=== PATIENT | male | born 1960 | race African-American/Black ===

== ENCOUNTER 2020-03-03 08:55 | Day surgery (SDC) | payer OTHER ==
[2020-02-27 13:23] LABS: Absolute Lymphocytes (CBC) 1.1 K/uL (0.7-4.9); Basophils % 1.3 % (0-1.3); Hematocrit 44.8 % (39.6-49.0); Lymphocytes % 26.5 % (15.3-44.8); MPV 9.1 fL (7.6-11.3); RBC Red Blood Cell Count 4.67 M/uL (4.33-5.43)
[2020-02-27 13:24] LABS: Urine Appearance CLEAR; Urine Bilirubin NEGATIVE (NEG); Urine Blood NEGATIVE (NEG); Urine Color YELLOW; Urine Glucose NEGATIVE (NEG); Urine Protein NEGATIVE (NEG); Urine Specific Gravity <=1.005 (1.005-1.030); Urine pH 6.5 (5.0-7.0)
[2020-02-27 13:35] LABS: Protime INR 1.09
[2020-02-27 13:50] LABS: ALT/SGPT 59 U/L (12-78); AST/SGOT 73 U/L (15-37); Albumin 3.9 g/dL (3.4-5.0); Alkaline Phosphatase 189 U/L (45-117); BUN Blood Urea Nitrogen 8 mg/dL (7-18); Bicarbonate 32 mmol/L (21-32); Bilirubin Total 1.3 mg/dL (0.2-1.0); Glucose Level 101 mg/dL (74-106); Potassium 4.8 mmol/L (3.5-5.1); Sodium Level 136 mmol/L (136-145)
[2020-02-27 13:51] LABS: Urine Microscopic Reflex NO UMIC
[2020-02-27 20:02] LABS: Blood Morphology Comment NOT SEEN (NOT SEEN); Platelet Estimate ADEQ; Urine White Blood Cell Casts OK
[2020-03-03] MEDS ORDERED: LIDOCAINE 1% MPF 30 ML VIAL ONE (09:13)
[2020-03-03] MEDS ORDERED: propofoL 200 MG/20 ML VIAL IV ONE (09:29)
[2020-03-03] MEDS ORDERED: FENTANYL CITR 100 MCG/2 ML ONE (09:29)
[2020-03-03] MEDS ORDERED: MIDAZOLAM HCL 2 MG/2 ML INJ ONE (09:29)
[2020-03-03] MEDS ORDERED: LIDOCAINE 2% MPF 5 ML VIAL ONE (09:29)
[2020-03-03] MEDS ORDERED: Ringers Lactate 1,000 ML IV ONE ×2 (09:45→11:56)
[2020-03-03] MEDS ORDERED: CEFAZOLIN/SWI 1gm 1 GM/10 ML SYR ONE (09:45)
[2020-03-03] MEDS ORDERED: GLYCOPYRROLATE 0.2 MG/ML SYR ONE (11:20)
[2020-03-03] MEDS ORDERED: ONDANSETRON 4 MG/2 ML VIAL ONE (11:43)
[2020-03-03] MEDS ORDERED: KETOROLAC 30 MG/ML INJ ONE (11:43)
[2020-03-03] MEDS ORDERED: dexAMETHasone 10 MG/ML VIAL ONE (11:43)
[2020-03-03] MEDS ORDERED: BUPIVACAINE 0.25% PF 10 ML VIAL ONE (11:45)
[2020-03-03 12:15] VITALS: O2SAT 100
--- OUTSIDE RECORDS SUMMARY | 2020-03-03 12:21 | XMS REPORT ---
:1960 Author Organization eClinical[employer] Care Team Providers Name Role Phone Deana Gracia Provider Role Unavailable Allergies No Known Allergies Problems No Known Problems Medications No Known Medications Results No Known Results Summary Purpose eClinicalWorks Submission
--- OUTSIDE RECORDS SUMMARY | 2020-03-03 12:21 | XMS REPORT | Continuity of Care Document ---
:1960 Author Organization [facility] t Address [address] [place] [id number] Care Team Providers Name Role Phone Valentín HERNANDEZ Attending Clinician Radiology Attending Clinician Unavailable Problems This patient has no known problems. Allergies, Adverse Reactions, Alerts This patient has no known allergies or adverse reactions. Medications Ordered Filled Start Stop Current Ordering Indication Dosage Frequency Signature Comments Components Source Medication Medication Date Date Medication? Clinician (SIG) Name Name Clopidogrel Clopidogrel Yes Sharath [address] [facility] Bisulfate Bisulfate [employer] [facility] Losartan Losartan Yes Sharath [address] [facility] Potassium Potassium [employer] [facility] Furosemide Furosemide Yes Sharath [address] [facility] Levofloxaci Levofloxaci Yes Sharath [address] [facility] n n Valentín [facility] HydrALAZINE HydrALAZINE Yes Sharath [address] [facility] HCl HCl Valentín with food [facility] Allopurinol Allopurinol Yes Sharath [address] [facility] Procedures This patient has no known procedures. Encounters Start End Encounter Admission Attending Care Care Encounter Source Date/Time Date/Time Type Type Clinicians Facility Department ID 2020-02-27 2020-02-27 Outpatient Justin Lou [id number] [facility] 13:34:00 13:34:00 t Specialty/U [facility] 2020-01-23 2020-01-23 Outpatient Justin Lou [id number] [facility] 14:47:00 14:47:00 t Specialty/U [facility] - [facility] ent Clinics 2020-01-09 2020-01-09 [place] [id number] [facility] 08:03:00 08:03:00 t Specialty/U [facility] - [facility] l Clinic Out[facility] ent Clinics 2019-11-26 2019-11-26 [place] [id number] [facility] 10:15:00 10:15:00 t Specialty/U [facility] - [facility] l Clinic Outpat[facility] ent Clinics 2019-11-11 2019-11-11 [place] [id number] [facility] 15:19:00 15:19:00 t Specialty/U [facility] - [facility] 2019-11-11 2019-11-11 Office LINSEY Laura [id number] 10:25:43 12:28:10 Visit Sharath AMBULATOR [id number] Y [id number] 2019-11-05 2019-11-05 Outpatient [place] [id number] [facility] 10:27:00 10:27:00 t Specialty/U [facility] - [facility] l Clinic Outpati ent Clinics 2019-10-25 2019-10-25 Outpatient Justin [place] [id number] [facility] 11:08:00 11:08:00 t Specialty/U [facility] - [facility] l Clinic Outpat[facility] ent Clinics 2019-10-22 2019-10-22 Outpatient [place] [id number] [facility] 15:00:00 15:00:00 t Specialty/U [facility] - [facility] l Clinic Outpat[facility] ent Clinics 2019-10-17 2019-10-17 Outpatient [place] [id number] [facility] 13:16:00 13:16:00 t Specialty/U Shelia kes - Specialty [facility]rology [facility] l Clinic Outpati ent Clinics 2019-10-11 2019-10-11 [facility]UST [id number] 08:00:00 23:59:00 Encounter Naveen [id number] [place]era [id number] [place] [id number] 2019-09-26 2019-09-26 [place] [id number] [facility] 14:15:00 14:15:00 t Specialty/U Shelia travis - Specialty rology [facility] /[facility]rology Clinic [facility] Results This patient has no known results.
[2020-03-03] MEDS: HYDRALAZINE HCL 20 MG/ML VIAL ONE ×2 (13:08→13:36)
[2020-03-03] MEDS ORDERED: CODEINE 30MG/APAP 300MG TAB ONE (13:54)
[2020-03-03 14:37] VITALS: BP 169/72; TEMP 97.2
--- NOTE | 2020-04-13 07:01 | OP ---
Date of Procedure: 03/03/2020 Surgeon: AYAH SANTIZO [employer]: Deana Gracia, Nurse Practitioner. Preoperative Diagnosis: Left hydrocele. Postoperative Diagnosis: Resolving left inflammatory hydrocele. Procedure Performed: Left scrotal exploration with left hydrocelectomy. Anesthesia: General. Procedure In Detail: With the patient in the supine position on the operating table, after the [employer] induction of anesthesia, the groins and genitalia were shaved, prepped, and draped in usual s terile fashion. A left transverse mid scrotal incision was made with a 15 scalpel blade and carried down through the dartos. There was a small to moderate size fluid collection anteriorly above the an terior to the testis. There was significant scarring and fibrosis in this area suggesting that the p atient had a partially resolved postinflammatory hydrocele with the residual tunica vaginalis collect ion. The hydrocele site was opened and it was imbricated to obliterate the potential space, after dr ainage of the fluid. A Lord type procedure was performed to obliterate the remaining hydrocele sac. After this, the wound was closed in layers using 3-0 and 4-0 chromic suture for the more superficial layers of the tissues above the tunic followed by absorbable sutures for the dartos on the skin. St erile dressings were applied and the patient was awakened and transferred by stretcher to the recover y room in satisfactory condition. There were no complications. Blood loss was less than 10 cc. There was no specimen. Counts were correct. He seth erated the procedure well. LISA/DARRIAN Voice ID: [id number] Report ID: [id number]
== END 2020-03-03 14:15 | disposition home or self-care (01) ==
LOC: OR 08:55
PROVIDERS: ATTEND Internal Medicine Hematology & Oncology
PROC: 0VB70ZZ Excision of Left Tunica Vaginalis, Open Approach (ICD-10-PCS; principal; 2020-03-03 08:30)
DX: N43.3 Hydrocele, unspecified (principal); N50.89 Other specified disorders of the male genital organs; I10 Essential (primary) hypertension; M10.9 Gout, unspecified; Z11.59 Encounter for screening for other viral diseases; Z79.02 Long term (current) use of antithrombotics/antiplatelets; Z79.899 Other long term (current) drug therapy; Z80.42 Family history of malignant neoplasm of prostate
CPT/HCPCS: 55040; 93005; 85025; 36415; 85610; 85730; 81003; 80053; J0360; J2704; J2250; J3010; J1100; J0690; J7120 ×2; J2405

== ENCOUNTER 2025-06-12 17:45 | Emergency (ER) | payer OTHER ==
--- OUTSIDE RECORDS SUMMARY | 2025-06-12 17:58 | XMS REPORT | Continuity of Care Document ---
Author Name Unknown Address [address] [facility] [place] [address] [facility] [place] Address [address] [facility] [place] [address] Care Team Providers Care Padded Box Sewer Name Role Phone Latasha Collins Primary Care Physician [phone] Vadim Trevizo Attending Clinician Unavailable ROSA ISELA ORTIZ Attending Clinician Unavailable KEY MONTANEZ Attending Clinician Unavailab PHIL Malave B Attending Clinician Unavaila ble [id number] Attending Clinician Unavailable MD GERALD Attending Clinician Unavailab RODRICK Haq Attending Clinician Unav ailable [id number] Attending Clinician Unavailable [id number] Attending Clinician Unavailable KE COLE Attending Clinician Unavailable Douglas HERNANDEZ, Ke Attending Clinician [phone] Risa Woodward DO Attending Clinician [phone] Gerson HERNANDEZ, Garland Hanna Attending Clinician [phone] Thanh HERNANDEZ, Guerita Theodore Attending Clinician + Baljeet Kenyon MD Attending Clinici an BALJEET KENYON Attending Clinician Unavailable Nesha HERNANDEZ, Afaq Attending Clinician Doctor Unassigned, [place] Attending Clinician U navailable RADIOLOGY Attending Clinician Unavailable Radiology Attending Clinician Unavailable Garland Nieto MD Admitting Clinician GARLAND NIETO Admitting Clinician UnavailKYLE Brown Admitting Clinician UnavailMARGARITA Portillo Admitting Clinician Unavailable Payers Payer Name Policy Type Policy Number Effective Date Expirati on Date Source GOLD 4 ADVANCED 9 [id number] 2024 00:00:00 [facility] HAYLIE-SEMATTHEW SILVER-C COPAY FOCUS 9 [id number] 2024 00:00:00 [facility] EPO [id number] 2023 00:00:00 TML RP CLAIMS [id number] 2012 00:00:00 Problems Condition Name Condition Details Condition Category Status Onset Date Resolution Date Last Treatment Date Treating Clinician Comments Source Macrocytic anemia Macrocytic anemia Disease Active 11-28 00:00: 00 Haylie Seybold - Externa l Alcohol use disorder Alcohol use disorder Disease Active 11-28 00:00: 00 Hayile Seybold - Externa l Well adult exam Well adult exam Disease Active 10-28 00:00: 00 Haylie Seybold - Externa l Toenail fungus Toenail fungus Disease Active 10-28 00:00: 00 Haylie Seybold - Externa l Claudicati on Claudicati on Disease Active 10-07 00:00: 00 Haylie Seybold - Externa l Type 2 diabetes mellitus without complicati on, without long-term current use of insulin (multi HCC) Type 2 diabetes mellitus without complicati on, without long-term current use of insulin (multi HCC) Disease Active 09-30 00:00: 00 Haylie Seybold - Externa l Type 2 diabetes mellitus without complicati on, without long-term current use of insulin (multi HCC) Type 2 diabetes mellitus without complicati on, without long-term current use of insulin (multi HCC) Disease Active 09-30 00:00: 00 Haylie Seybold - Externa l HFrEF (heart failure with reduced ejection fraction) (multi HCC) HFrEF (heart failure with reduced ejection fraction) (multi HCC) Disease Active 09-30 00:00: 00 Haylie Setravisold - Externa l Discolorat ion of skin of multiple sites of lower extremity Discolorat ion of skin of multiple sites of lower extremity Disease Active 09-30 00:00: 00 Haylie Seybold - Externa l HFrEF (heart failure with reduced ejection fraction) (multi HCC) HFrEF (heart failure with reduced ejection fraction) (multi HCC) Disease Active 2023-09 00:00: 00 Haylie Setravisold - Externa l Leg swelling Leg swelling Disease Active 01-12 00:00: 00 [facility] Acute on chronic congestive heart failure, unspecifie d heart failure type Acute on chronic congestive heart failure, unspecifie d heart failure type Disease Active 01-12 00:00: 00 [facility] Left heart failure Left heart failure Disease Active 2022-09 00:00: 00 [facility] Essential hypertensi on Essential hypertensi on Disease Active 2022-09 00:00: 00 [facility] Prediabete s Prediabete s Disease Active 2022-09 00:00: 00 [facility] Range of motion deficit Range of motion deficit Disease Active 12-25 00:00: 00 [facility] Scarring Scarring Disease Active 12-25 00:00: 00 [facility] CAD (coronary artery disease) CAD (coronary artery disease) Disease Active Haylie Seybold - Externa l Gout Gout Disease Active Haylie Seybold - Externa l History of percutaneo us coronary interventi on History of percutaneo us coronary interventi on Disease Active Haylie Seybold - Externa l HTN (hypertens ion) HTN (hypertens ion) Disease Active Haylie Seybold - Externa l 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 Erectile disorder Problem Active [facility] Allergies, Adverse Reactions, Alerts Allergy Name Allergy Type Status Severity Reaction(s) Onset Date Inactive Date Treating Clinician Comments Source Codeine Propensi ty to adverse reaction s Active 11-20 00:00: 00 Haylie allison doxycycl ine Propensi ty to adverse reaction to drug Active 11-20 00:00: 00 Chris Harris NO KNOWN ALLERGIE S Drug Class Active [facility] Social History Social Habit Start Date Stop Date Quantity Comments Source History of tobacco use Cigarette Smoker Haylie winchester - External Sexual orientation K raman Nabor - External Alcoholic beverage intake 2024-11-28 00:00:00 2024-11-28 00:00:00 Current drinker of alcohol (finding) Haylie Tomlin - External History of Social function 2024-11-28 00:00:00 2024-11-28 00:00:00 Haylie Tomlin - External Tobacco use and exposure 2024-07-22 00:00:00 2024-07-22 00:00:00 Smokeless tobacco non-user Haylie Tomlin - External Sex 2024-03-17 09:39:21 2024-03-17 09:39:21 Male (finding) Haylie Tomlin - External Sex assigned at 1960 00:00:00 1960 00:00:00 Haylie Goldman Smoking Status Start Date Stop Date Source Tobacco smoking consumption unknown [facility] Smokes tobacco daily 2024-07-22 00:00:00 Haylie Tomlin - External Medications Ordered Medication Name Filled Medication Name Start Date Stop Date Current Medication? Ordering Clinician Indication Dosage Frequency Signature (SIG) Comments Components Source Clopidogrel Bisulfate (PLAVIX) 75 MG oral Tablet 11-28 11:02: 26 Yes 75mg QD Take 1 tablet (75 mg total) by mouth daily. Haylie allison Spironolact one 50 MG oral Tablet 11-28 11:02: 26 Yes 50mg QD Take 1 tablet (50 mg total) by mouth daily. Haylie allison busPIRone HCl 10 MG oral Tablet 11-28 11:02: 26 Yes 10mg Q.5D Take 1 tablet (10 mg total) by mouth 2 times daily. Haylie allison Empaglifloz in 10 MG oral Tablet 11-28 00:00: 00 Yes [id number] 10mg QD Take 1 tablet (10 mg total) by mouth daily. Haylie allison Potassium Chloride 20 MEQ oral Pack 10-28 09:08: 43 10-28 00:00 :00 No 20meq Q.5D Take 20 mEq by mouth 2 times daily. Haylie allison Clopidogrel Bisulfate (PLAVIX) 75 MG oral Tablet 10-28 08:49: 48 Yes 75mg QD Take 1 tablet (75 mg total) by mouth daily. Haylie allison Spironolact one 50 MG oral Tablet 10-28 08:49: 48 Yes 50mg QD Take 1 tablet (50 mg total) by mouth daily. Haylie allison busPIRone HCl 10 MG oral Tablet 10-28 08:49: 48 Yes 10mg Q.5D Take 1 tablet (10 mg total) by mouth 2 times daily. Haylie allison Carvedilol 3.125 MG oral Tablet 10-28 00:00: 00 Yes [id number] 3.125mg Take 1 tablet (3.125 mg total) by mouth in the morning and 1 tablet (3.125 mg total) in the evening. Take with meals. Haylie allison Nicotine 14 MG/24HR transdermal PATCH 24 HR 10-28 00:00: 00 Yes [id number] 1{patch } Place 1 patch onto the skin every 24 hours. Haylie allison Furosemide 80 MG oral Tablet 10-28 00:00: 00 Yes [id number] 40mg Q.5D Take 0.5 tablets (40 mg total) by mouth 2 times daily. Haylie allison sildenafil 100 mg tablet 2023-09 00:00: 00 Yes 1mg Chirsclara Harris levofloxaci n 500 mg tablet 2023-09 00:00: 00 Yes 1mg Chrisclara Harris cephalexin 500 mg tablet 2023-09- 00:00: 00 Yes 1mg Chris F Steven Potassium Chloride 20 MEQ oral Pack 2023-09 14:45: 27 Yes 20meq Q.5D Take 20 mEq by mouth 2 times daily. Haylie allison busPIRone HCl 10 MG oral Tablet 2023-09 14:45: 27 Yes 10mg Q.5D Take 1 tablet (10 mg total) by mouth 2 times daily. Haylie allison Clopidogrel Bisulfate (PLAVIX) 75 MG oral Tablet 2023-09 14:40: 09 Yes 75mg QD Take 1 tablet (75 mg total) by mouth daily. Haylie allison Spironolact one 50 MG oral Tablet 2023-09 14:40: 09 Yes 50mg QD Take 1 tablet (50 mg total) by mouth daily. Haylie allison Carvedilol 3.125 MG oral Tablet 2023-09 00:00: 00 10-28 00:00 :00 No 3.125mg Take 1 tablet (3.125 mg total) by mouth in the morning and 1 tablet (3.125 mg total) in the evening. Take with meals. Haylie allison Gabapentin 100 MG oral Capsule 2023-09 00:00: 00 Yes Haylie allison losartan 50 mg tablet 2023-09 00:00: 00 Yes 1mg Chris Harris furosemide 40 mg tablet 2023-09 00:00: 00 Yes 1mg Chris Harris Bruno Low Dose Aspirin 81 mg tablet,dawna yed release 2023-09 00:00: 00 Yes 1mg Chris Harrsi clopidogrel 75 mg tablet 2023-09 00:00: 00 Yes 1mg Chris Harris allopurinol 300 mg tablet 2023-09 00:00: 00 Yes 1mg Chris Harris hydralazine 50 mg tablet 2023-09 00:00: 00 Yes 1mg Chris Harris spironolact one 50 mg tablet 2023-09 00:00: 00 Yes 1mg Chris Harris Bystolic 10 mg tablet 2023-09 00:00: 00 Yes 1mg Chris Harris buspirone 10 mg tablet 2023-09 00:00: 00 Yes 1mg Chris Harris Klor-Con M20 mEq tablet,exte nded release 2023-09 00:00: 00 Yes 1mEq Chris Harris Nebivolol HCl (Bystolic) 10 MG oral Tablet 2023-09 00:00: 00 10-28 00:00 :00 No 10mg QD Take 1 tablet (10 mg total) by mouth daily. Haylie allison sildenafil 100 mg tablet 2023-09 00:00: 00 Yes 1mg Chris Harris gabapentin 100 mg capsule 2023-09 00:00: 00 Yes 12mg Chris Harris clopidogrel 75 mg tablet 2023-09 00:00: 00 Yes 1mg Chris Harris spironolact one 50 mg tablet 2023-09 00:00: 00 Yes 1mg Chris Harris Allopurinol 300 MG oral Tablet 05-24 00:00: 00 Yes 300mg QD Take 1 tablet (300 mg total) by mouth daily. Haylie allison Losartan Potassium (COZAAR) 50 MG oral Tablet 05-24 00:00: 00 Yes 50mg QD Take 1 tablet (50 mg total) by mouth daily. Haylie allison losartan 50 mg tablet 04-10 00:00: 00 Yes 1mg Chris Harris furosemide 40 mg tablet 04-10 00:00: 00 Yes 1mg Chris Harris Bruno Low Dose Aspirin 81 mg tablet,dawna yed release 04-10 00:00: 00 Yes 1mg Chris Harris clopidogrel 75 mg tablet 04-10 00:00: 00 Yes 1mg Chris Harris allopurinol 300 mg tablet 04-10 00:00: 00 Yes 1mg Chris Harris hydralazine 50 mg tablet 04-10 00:00: 00 Yes 1mg Chris Harris spironolact one 50 mg tablet 04-10 00:00: 00 Yes 1mg Chris Harris Bystolic 10 mg tablet 04-10 00:00: 00 Yes 1mg Chris Harris buspirone 10 mg tablet 04-10 00:00: 00 Yes 1mg Chris Harris Klor-Con M20 mEq tablet,exte nded release 04-10 00:00: 00 Yes 1mEq Chris Harris gabapentin 100 mg capsule 04-10 00:00: 00 Yes 12mg Chris Harris sacubitriL- valsartan 24-26 mg tablet 03-01 11:41: 30 03-01 00:00 :00 No 1{tbl} Take 1 tablet by mouth in the morning and 1 tablet in the evening. [facility] hydrALAZINE HCl 25 MG oral Tablet 03-01 00:00: 00 Yes 50mg [id number] 3D Take 2 tablets (50 mg total) by mouth every 8 hours. Haylie allison furosemide 80 mg tablet 03-01 00:00: 00 Yes [id number] 80mg Take 1 tablet by mouth every morning and evening. [facility] spironolact one 50 mg tablet 03-01 00:00: 00 03-02 04:59 :00 No [id number] 50mg Take 1 tablet by mouth in the morning. [facility] Furosemide 80 MG oral Tablet 03-01 00:00: 00 10-28 00:00 :00 No 40mg Q.5D Take 0.5 tablets (40 mg total) by mouth 2 times daily. Haylie allison Atorvastati n Calcium 40 MG oral Tablet 03-01 00:00: 00 09-30 00:00 :00 No 40mg Take 1 tablet (40 mg total) by mouth at bedtime. Haylie allison hydrALAZINE 25 mg tablet 03-01 00:00: 00 08-29 05:59 :00 No [id number] 25mg Take 1 tablet by mouth every 8 (eight) hours for 180 days. [facility] lisinopriL 20 mg tablet 03-01 00:00: 00 03-01 00:00 :00 No [id number] 20mg Take 1 tablet by mouth in the morning. [facility] isosorbide dinitrate 20 mg tablet 03-01 00:00: 00 03-01 00:00 :00 No [id number] 20mg Take 1 tablet by mouth in the morning and 1 tablet at noon and 1 tablet in the evening. [facility] allopurinol 300 mg tablet 02-18 00:00: 00 Yes 1mg Chris Harris losartan 50 mg tablet 02-18 00:00: 00 Yes 1mg Chris Harris Klor-Con M20 mEq tablet,exte nded release 02-18 00:00: 00 Yes 1mEq Chris Harris gabapentin 100 mg capsule 02-18 00:00: 00 Yes 12mg Chris Harris Aspirin 81 MG oral Chewable Tablet 01-19 00:00: 00 Yes 81mg QD Take 1 tablet (81 mg total) by mouth daily. Haylie allison clopidogreL 75 mg tablet 01-19 00:00: 00 Yes [id number] 75mg Take 1 tablet by mouth in the morning. [facility] sacubitriL- valsartan 24-26 mg tablet 01-18 18:11: 57 Yes 1{tbl} Take 1 tablet by mouth in the morning and 1 tablet in the evening. [facility] clopidogreL (PLAVIX) 75 mg tablet 75 mg 01-18 14:00: 00 01-19 01:11 :57 No [id number] 75mg 75 mg, Oral, DAILY, First dose on Mon01/19/24 at 0900, Until Discontinu ed, Routine [facility] magnesium oxide (MAG-OX 400) tablet 400 mg 01-18 13:00: 00 01-18 14:17 :00 No 400mg 400 mg, Oral, ONCE, 1 dose, On Mon01/19/24 at 0800, Routine [facility] ramelteon (ROZEREM) tablet 8 mg 01-18 04:45: 00 01-19 01:11 :57 No 8mg 8 mg, Oral, QHS, First dose on Mon01/18/24 at 2345, Until Discontinu ed, Routine [facility] HYDROcodone -acetaminop hen (NORCO 5) 5-325 mg tablet 1 tablet 01-18 04:36: 28 01-19 01:11 :57 No 1{tbl} 1 tablet, Oral, Q6HPRN, Starting on Mon01/18/24 at 2336, Until Mon01/19/24 at 2010, Routine, Pain (scale 7-10), Pain (scale 4-6) [facility] clopidogreL (PLAVIX) 300 mg tablet 300 mg 01-18 01:00: 00 01-18 01:59 :00 No 300mg 300 mg, Oral, ONCE, 1 dose, On Mon01/18/24 at 1999, Routine [facility] furosemide 80 mg tablet 01-18 00:00: 00 03-01 00:00 :00 No [id number] 80mg Take 1 tablet by mouth every morning and evening. [facility] hydrALAZINE 25 mg tablet 01-18 00:00: 00 03-01 00:00 :00 No [id number] 25mg Take 1 tablet by mouth every 8 (eight) hours. 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 01-17 22:01: 29 01-17 22:28 :01 No ONCE INTRA PROCEDURE, Starting on Ruby 01/18/24 at 1701, Until Ruby 01/18/24 at 1728, [facility]hen[facility] (BENADRYL) injection 01-17 20:55: 29 01-17 22:28 :01 No ONCE INTRA PROCEDURE, Starting on Ruby 01/18/24 at 1555, Until Ruby 01/18/24 at 1728, Routine, [facility] ticagrelor (BRILINTA) tablet 180 mg 01-17 20:45: 00 01-17 19:50 :00 No [id number] 180mg 180 mg, Oral, ONCE, 1 dose, On Ruby 01/18/24 at 1545, Routine [facility] aminophylli ne 250 mg in NaCl 0.9% (NS) 100 mL piggyback 01-17 20:35: 03 01-17 22:28 :01 No ONCE INTRA PROCEDURE, Starting on Ruby 01/18/24 at 1535, Until Ruby 01/18/24 at 1728, CV Intraproce dure [facility] nitroglycer in (TRIDIL) 2 mg in 10 mL D5W for Cardiac Cath 01-17 20:33: 13 01-17 22:28 :01 No ONCE INTRA PROCEDURE, Starting on Ruby 01/18/24 at 1533, Until Ruby 01/18/24 at 1728, Routine, CV Intraproce dure [facility] heparin 1,000 unit/mL injection 01-17 20:33: 13 01-17 22:28 :01 No ONCE INTRA PROCEDURE, Starting on Ruby 01/18/24 at 1533, Until Ruby 01/18/24 at 1728, Routine, CV Intraproce dure [facility] lidocaine 1% (PF) (XYLOCAINE) injection 01-17 20:31: 26 01-17 22:28 :01 No ONCE INTRA PROCEDURE, Starting on Mon01/18/24 at 1531, Until Mon01/18/24 at 1728, Routine, CV Intraproce dure [facility] FENTanyl PF (SUBLIMAZE (PF)) injection 01-17 20:18: 30 01-17 22:28 :01 No ONCE INTRA PROCEDURE, Starting on Mon01/18/24 at 1518, Until Mon01/18/24 at 1728, Routine, CV Intraproce dure [facility] midazolam (VERSED) injection 01-17 20:18: 00 01-17 22:28 :01 No ONCE INTRA PROCEDURE, Starting on Mon01/18/24 at 1518, Until Mon01/18/24 at 1728, Routine, CV Intraproce dure [facility] tc 99m-pyropho sphate injection 25 millicurie 01-17 15:30: 00 01-17 14:00 :00 No [id number] 25mCi 25 millicurie , Intravenou s, ONCE, 1 dose, On Mon01/18/24 at 1030, Routine [facility] furosemide (LASIX) tablet 80 mg 01-17 11:00: 00 01-19 01:11 :57 No 80mg 80 mg, Oral, BID AT 0600 - 1800, First dose on Mon01/18/24 at 0600, Until Discontinu ed, Routine [facility] iopamidol (ISOVUE 370-500 mL) injection 01-16 18:50: 58 01-16 19:05 :33 No ONCE INTRA PROCEDURE, Starting on Mon01/17/24 at 1350, Until Mon01/17/24 at 1405, Routine, CV Intraproce dure [facility] nitroglycer in (TRIDIL) 2 mg in 10 mL D5W for Cardiac Cath 01-16 18:02: 19 01-16 19:05 :33 No ONCE INTRA PROCEDURE, Starting on Mon01/17/24 at 1302, Until Mon01/17/24 at 1405, Routine, CV Intraproce dure [facility] heparin 1,000 unit/mL injection 01-16 18:02: 10 01-16 19:05 :33 No ONCE INTRA PROCEDURE, Starting on Mon01/17/24 at 1302, Until Mon01/17/24 at 1405, Routine, CV Intraproce dure [facility] lidocaine 1% (XYLOCAINE) 10 mg/mL (1 %) injection 01-16 17:57: 39 01-16 19:05 :33 No ONCE INTRA PROCEDURE, Starting on Mon01/17/24 at 1257, Until Mon01/17/24 at 1405, Routine, CV Intraproce dure [facility] FENTanyl PF (SUBLIMAZE (PF)) injection 01-16 17:55: 08 01-16 19:05 :33 No ONCE INTRA PROCEDURE, Starting on Mon01/17/24 at 1255, Until Mon01/17/24 at 1405, Routine, CV Intraproce dure [facility] midazolam (VERSED) injection 01-16 17:54: 59 01-16 19:05 :33 No ONCE INTRA PROCEDURE, Starting on Mon01/17/24 at 1254, Until Mon01/17/24 at 1405, Routine, CV Intraproce dure [facility] magnesium sulfate in water 2 gram/50 mL (4 %) infusion 2 g 01-16 12:30: 00 01-16 14:58 :00 No 2g 2 g, IV Piggyback, Administer over 60 Minutes, ONCE, 1 dose, On Mon01/17/24 at 0730, Routine [facility] furosemide (LASIX) injection 80 mg 01-16 01:00: 00 01-17 01:52 :14 No 80mg 80 mg, IV Push, Q12H, First dose (after last modificati on) on Mon01/16/24 at 2000, Until Discontinu ed, [facility] hydrALAZINE (APRESOLINE ) tablet 25 mg 01-15 19:00: 00 01-19 01:11 :57 No 25mg 25 mg, Oral, Q8H, First dose (after last modificati on) on Mon01/16/24 at 1400, Until Discontinu ed, Routine [facility] sennosides- docusate sodium (SENOKOT-S) 8.6-50 mg per tablet 1 tablet 01-15 00:30: 00 01-19 01:11 :57 No 1{tbl} 1 tablet, Oral, DAILY, First dose on Mon01/15/24 at 1930, Until Discontinu ed, Routine [facility] carvediloL (COREG) tablet 6.25 mg 01-14 22:00: 00 01-19 01:11 :57 No 6.25mg 6.25 mg, Oral, BID MEALS, First dose (after last modificati on) on Mon01/15/24 at 1700, Until Discontinu ed, Routine [facility] allopurinoL (ZYLOPRIM) tablet 300 mg 01-14 16:15: 00 01-19 01:11 :57 No 300mg 300 mg, Oral, DAILY, First dose on Mon01/15/24 at 1115, Until Discontinu ed, Routine [facility] spironolact one (ALDACTONE) tablet 25 mg 01-14 14:00: 00 01-17 14:54 :50 No 25mg 25 mg, Oral, DAILY, First dose on Mon01/15/24 at 0900, Until Discontinu ed, Routine [facility] carvediloL (COREG) tablet 3.125 mg 01-14 13:00: 00 01-14 15:13 :38 No 3.125mg 3.125 mg, Oral, BID MEALS, First dose on Mon01/15/24 at 0800, Until Discontinu ed, Routine [facility] magnesium sulfate in water 4 gram/50 mL (8 %) IV Piggyback 4 g 2024-0 5-13 12:45: 00 01-14 16:34 :00 No 4g 4 g, IV Piggyback, at 25 mL/hr Administer over 120 Minutes, ONCE, 1 dose, On Mon01/15/24 at 0745, Routine [facility] KCL (KLOR-CON M20) tablet 20 mEq 01-14 12:45: 00 01-14 13:57 :15 No 20meq 20 mEq, Oral, ONCE, 1 dose, On Mon01/15/24 at 0745, Routine [facility] melatonin (MELATIN) tablet 3 mg 01-14 03:30: 00 01-18 04:36 :52 No 3mg 3 mg, Oral, QHS, First dose on Mon01/14/24 at 2230, Until Discontinu ed, Routine [facility] aspirin chewable tablet 81 mg 01-13 14:00: 00 01-19 01:11 :57 No 81mg 81 mg, Oral, DAILY, First dose on Mon01/14/24 at 0900, Until Discontinu ed, Routine [facility] cetirizine (ALLERGY RELIEF (CETIRIZINE )) tablet 5 mg 01-13 14:00: 00 01-19 01:11 :57 No 5mg 5 mg, Oral, DAILY, First dose on Mon01/14/24 at 0900, Until Discontinu ed, Routine [facility] furosemide (LASIX) injection 40 mg 01-13 01:00: 00 01-15 16:25 :17 No 40mg 40 mg, IV Push, Q12H, First dose (after last reorder) on 01/13/24 at 2000, Until Discontinu ed, [facility] hydrALAZINE (APRESOLINE ) tablet 50 mg 01-13 01:00: 00 01-15 16:25 :17 No 50mg 50 mg, Oral, BID, First dose (after last reorder) on 01/13/24 at 2000, Until Discontinu ed, Routine [facility] magnesium sulfate in water 4 gram/50 mL (8 %) IV Piggyback 4 g 01-12 18:15: 00 01-12 19:42 :00 No 4g 4 g, IV Piggyback, at 25 mL/hr Administer over 120 Minutes, ONCE, 1 dose, On 01/13/24 at 1315, Routine [facility] enoxaparin (LOVENOX) injection 40 mg 01-12 16:45: 00 01-19 01:11 :57 No 40mg 40 mg, Subcutaneo us, Q24H, First dose on 01/13/24 at 1145, Until Discontinu ed, Routine [facility] benzonatate (TESSALON PERLES) capsule 100 mg 01-12 15:31: 58 01-19 01:11 :57 No 100mg 100 mg, Oral, Q8HPRN, Starting on 01/13/24 at 1031, Until Mon01/19/24 at 2010, Routine, Cough [facility] benzocaine- menthoL (CEPACOL SORE THROAT (TIMOTHY-MEN)) lozenge 1 Lozenge 01-12 15:31: 43 01-19 01:11 :57 No 1{lozen ge} 1 Lozenge, Oral, Q4HPRN, Starting on 01/13/24 at 1031, Until Mon01/19/24 at 2010, Routine, Sore throat [facility] carvediloL (COREG) tablet 25 mg 01-12 14:45: 00 01-12 18:55 :02 No 25mg 25 mg, Oral, BID MEALS, First dose (after last modificati on) on 01/13/24 at 0945, Until Discontinu ed, Routine [facility] hydrALAZINE (APRESOLINE ) tablet 10 mg 01-12 14:21: 27 01-19 01:11 :57 No 10mg 10 mg, Oral, Q6HPRN, Starting on 01/13/24 at 0921, Until Mon01/19/24 at 2010, Routine, SBP >180 [facility] hydralAZINE (APRESOLINE ) injection 10 mg 01-12 11:30: 00 01-12 11:56 :00 No 10mg 10 mg, Slow IV Push, ONCE, 1 dose, On 01/13/24 at 0630, [facility] aspirin chewable tablet 324 mg 01-12 10:30: 00 01-12 09:44 :00 No 324mg 324 mg, Oral, ONCE, 1 dose, On 01/13/24 at 0530, Routine [facility] furosemide (LASIX) injection 40 mg 01-12 09:15: 00 01-12 09:21 :00 No 40mg 40 mg, IV Push, ONCE, 1 dose, [facility]13[facility]24 [facility] 0415[facility] 11-20 00:00: 00 Yes 1mg Chris Harris furosemide 40 mg tablet 11-20 00:00: 00 Yes 1mg Chris Harris hydralazine 50 mg tablet 11-20 00:00: 00 Yes 1mg Chris Harris allopurinol 300 mg tablet 11-20 00:00: 00 Yes 1mg Chris Harris Bystolic 10 mg tablet 11-20 00:00: 00 Yes 1mg Chris Harris buspirone 10 mg tablet 11-20 00:00: 00 Yes 1mg Chris Harris gabapentin 300 mg capsule 11-20 00:00: 00 Yes 1mg Chris Harris ALLOPURINOL 300MG 11-14 00:00: 00 Yes Chris Harris SPIRONOLACT 50MG 11-14 00:00: 00 Yes Chris Harris CARVEDILOL 25MG 11-14 00:00: 00 Yes Chris Harris TAKE 1 TABLET BY MOUTH TWICE DAILY. 11-14 00:00: 00 01-14 00:00 :00 No 50 Chris Harris TAKE ONE TABLET BY MOUTH EVERY OTHER MORNING 11-14 00:00: 00 01-14 00:00 :00 No 40 Chris Harris TAKE 1 TABLET BY MOUTH DAILY 11-14 00:00: 00 01-14 00:00 :00 No 10 Chris Harris sacubitriL- valsartan 24-26 mg tablet 2022-09 13:49: 52 Yes 1{tbl} Take 1 tablet by mouth in the morning and 1 tablet in the evening. [facility] carvediloL 25 mg tablet 2022-09 00:00: 00 07-11 05:59 :00 No [id number] 25mg Take 1 tablet by mouth in the morning and 1 tablet in the evening. Take with meals. [facility] furosemide 40 mg tablet 2022-09 00:00: 00 01-18 00:00 :00 No [id number] 40mg Take 1 tablet by mouth in the morning. [facility] TAKE 1 TABLET BY MOUTH TWICE A DAY 2022-09 00:00: 00 Yes [id number] Chris Harris 1 TABLET PO TID 2022-09 00:00: 00 Yes 10 Chris Harris FUROSEMIDE 40MG 05-16 00:00: 00 Yes [id number] Chris Harris allopurinoL 300 mg tablet 05-16 00:00: 00 Yes daily. [facility] allopurinoL 300 mg tablet 05-16 00:00: 00 Yes daily. [facility] spironolact one 50 mg tablet 05-16 00:00: 00 03-01 00:00 :00 No daily. [facility] hydrALAZINE 50 mg tablet 05-16 00:00: 00 01-18 00:00 :00 No 2 (two) times daily. [facility] hydrALAZINE 50 mg tablet 05-16 00:00: 00 01-18 00:00 :00 No 2 (two) times daily. [facility] TAKE 1 TABLET DAILY. 05-16 00:00: 00 01-14 00:00 :00 No 10 Chris Harris FUROSEMIDE 40MG TAB 2-1 1-16 00:00: 00 Yes Chris Harris ALLOPURINOL 300MG 2-1 1-16 00:00: 00 Yes [id number] Chris Harris HYDRALAZINE 50MG 2-1 1-16 00:00: 00 Yes [id number] Chris Harris SPIRONOLACT 50MG 2021-1 1-16 00:00: 00 Yes [id number] Chris Harris Dose Unknown 2022-0 4-12 00:00: 00 No Dose Unknown 2022-0 4-12 00:00: 00 Yes Chris Harris Dose Unknown 2022-0 3-16 00:00: 00 No Dose Unknown 2022-0 3-16 00:00: 00 Yes Chris Harris atorvastati n 10 mg tablet 2-0 3-15 00:00: 00 No 1mg atorvastati n 10 mg tablet 2-0 3-15 00:00: 00 Yes 1mg Chris Harris Dose Unknown 2022-0 3-14 00:00: 00 No Dose Unknown 2022-0 3-14 00:00: 00 No Dose Unknown 2022-0 3-14 00:00: 00 No Dose Unknown 2022-0 3-14 00:00: 00 No Dose Unknown 2022-0 3-14 00:00: 00 No Dose Unknown 2022-0 3-14 00:00: 00 No Dose Unknown 2022-0 3-14 00:00: 00 Yes Chris Harris Dose Unknown 2022-0 3-14 00:00: 00 Yes Chris Harris Dose Unknown 2022-0 3-14 00:00: 00 Yes Chris Harris Dose Unknown 2022-0 3-14 00:00: 00 Yes Chris Harris Dose Unknown 2022-0 3-14 00:00: 00 Yes Chris Harris Dose Unknown 2022-0 3-14 00:00: 00 Yes Chris Harris Clopidogrel Bisulfate Clopidogrel Bisulfate Yes Kyle Basil 1 tablet [facility] Losartan Potassium Losartan Potassium Yes Kyle [place] 1 tablet [facility] Furosemide Furosemide Yes Kyle [place] 1 tablet [facility] Levofloxaci n Levofloxaci n Yes Kyle [place] 1 tablet [facility] HydrALAZINE HCl HydrALAZINE HCl Yes Kyle [place] 1 tablet with food [facility] Allopurinol Allopurinol Yes Kyle Gracia 1 tablet [facility] Losartan Potassium 100 MG Losartan Potassium 100 MG No 1{table t} QD Losartan Potassium 100 MG Levofloxaci n 500 MG Levofloxaci n 500 MG No 1{table t} QD Levofloxac in 500 MG Clopidogrel Bisulfate 75 MG Clopidogrel Bisulfate 75 MG No 1{table t} QD Clopidogre l Bisulfate 75 MG Furosemide 40 MG Furosemide 40 MG No 1{table t} QD Furosemide 40 MG Immunizations Ordered Immunization Name Filled Immunization Name Date Status Comments Source Tdap 2021-11-15 00:00:00 Completed SHINGRIX VACCINE 2021-11-15 00:00:00 Completed Tdap Tdap 2021-11-15 00:00:00 Completed Chris F Steven SHINGRIX VACCINE SHINGRIX VACCINE 2021-11-15 00:00:00 Completed Chris Santillan Steven Moderna COVID-19 Vaccine 2020-12-11 00:00:00 Completed Moderna COVID-19 Vaccine Moderna COVID-19 Vaccine 2020-12-11 00:00:00 Completed Chris Santillan Steven Moderna COVID-19 Vaccine 2020-11-09 00:00:00 Completed Moderna COVID-19 Vaccine Moderna COVID-19 Vaccine 2020-11-09 00:00:00 Completed Chris Harris Tdap- (Boostrix, Adacel) Unknown Completed Haylie Seybold - External Tdap- (Boostrix, Adacel) Unknown Completed Haylie Bookerybold - External AFLURIA TRIVALENT MDV Unknown Completed Haylie Bookerybold - External Shingles IM (Shingrix) Unknown Completed Haylie Seybold - External Tdap- (Boostrix, Adacel) Unknown Completed Haylie Seybold - External Tdap- (Boostrix, Adacel) Unknown Completed Haylie Seybold - External AFLURIA TRIVALENT MDV Unknown Completed Haylie Seybold - External Shingles IM (Shingrix) Unknown Completed Haylie Seybold - External Tdap- (Boostrix, Adacel) Unknown Completed Haylie Seybold - External Tdap- (Boostrix, Adacel) Unknown Completed Haylie Bookerybold - External Shingles IM (Shingrix) Unknown Completed Haylie Bookerybold - External Vital Signs Vital Name Observation Time Observation Value Comments S dia Systolic blood pressure 2024-11-28 15:56:00 132 mm[Hg] Haylie Bookerybo ld - External Diastolic blood pressure 2024-11-28 15:56:00 78 mm[Hg] Haylie Bookerybo ld - External Heart rate 2024-11-28 15:56:00 60 /min Kvngse y Seybold - External Body temperature 2024-11-28 15:56:00 36.61 Gill Haylie Seybold - External Respiratory rate 2024-11-28 15:56:00 20 /min Haylie Seybold - External Body height 2024-11-28 15:56:00 180.3 cm Zakia cabral Seybold - External Body weight 2024-11-28 15:56:00 90.776 kg Zakia ey Seybold - External BMI 2024-11-28 15:56:00 27.91 kg/m2 Zakia ey Seybold - External Oxygen saturation in Arterial blood by Pulse oximetry 2024-11-28 15:56:00 97 /min Haylie Bookerybo ld - External Systolic blood pressure 2024-10-28 15:30:00 152 mm[Hg] Haylie Seybo ld - External Diastolic blood pressure 2024-10-28 15:30:00 72 mm[Hg] Haylie Bookerybo ld - External Heart rate 2024-10-28 14:45:00 56 /min Kvngse y Seybold - External Body temperature 2024-10-28 14:45:00 35.89 Gill Haylie Seybold - External Respiratory rate 2024-10-28 14:45:00 15 /min Haylie Seybold - External Body height 2024-10-28 14:45:00 180.3 cm Zakia ey Seybold - External Body weight 2024-10-28 14:45:00 86.183 kg Zakia ey Seybold - External BMI 2024-10-28 14:45:00 26.50 kg/m2 Zakia ey Seybold - External Oxygen saturation in Arterial blood by Pulse oximetry 2024-10-28 14:45:00 95 /min Haylie Boykino ld - External Systolic blood pressure 2024-09-30 17:00:00 152 mm[Hg] Haylie Boykino ld - External Diastolic blood pressure 2024-09-30 17:00:00 84 mm[Hg] Haylie Bookerybo ld - External Heart rate 2024-09-30 16:51:00 52 /min Felice y Seybold - External Respiratory rate 2024-09-30 16:51:00 15 /min Haylie Seybold - External Body height 2024-09-30 16:51:00 180.3 cm Zakia ey Seybold - External Body weight 2024-09-30 16:51:00 83.008 kg Zakia ey Seybold - External BMI 2024-09-30 16:51:00 25.52 kg/m2 Zakia ey Seybold - External Oxygen saturation in Arterial blood by Pulse oximetry 2024-09-30 16:51:00 100 /min Haylie Boykino ld - External Systolic blood pressure 2024-03-01 16:19:00 157 mm[Hg] [facility] Diastolic blood pressure 2024-03-01 16:19:00 73 mm[Hg] [facility] Heart rate 2024-03-01 16:19:00 64 /min [facility] Body temperature 2024-03-01 16:18:00 37.11 Gill [facility] Respiratory rate 2024-03-01 16:18:00 18 /min [facility] Body height 2024-03-01 16:18:00 180.3 cm [facility] Body weight 2024-03-01 16:18:00 83.779 kg [facility] BMI 2024-03-01 16:18:00 25.76 kg/m2 [facility] Oxygen saturation in Arterial blood by Pulse oximetry 2024-03-01 16:18:00 95 /min [facility] Systolic blood pressure 2024-01-19 16:25:00 130 mm[Hg] [facility] Diastolic blood pressure 2024-01-19 16:25:00 67 mm[Hg] [facility] Heart rate 2024-01-19 16:25:00 66 /min [facility] Body temperature 2024-01-19 16:25:00 36 Gill [facility] Oxygen saturation in Arterial blood by Pulse oximetry 2024-01-19 16:25:00 95 /min [facility] Respiratory rate 2024-01-19 13:49:00 15 /min [facility] Body weight 2024-01-19 08:37:00 75.354 kg [facility] BMI 2024-01-19 08:37:00 22.85 kg/m2 [facility] Body height 2024-01-15 01:00:00 181.6 cm [facility] Systolic blood pressure 2024-01-18 21:57:08 143 mm[Hg] [facility] Diastolic blood pressure 2024-01-18 21:57:08 83 mm[Hg] [facility] Respiratory rate 2024-01-18 21:57:08 10 /min [facility] Oxygen saturation in Arterial blood by Pulse oximetry 2024-01-18 21:57:08 95 /min [facility] Heart rate 2024-01-18 12:29:00 62 /min [facility] Body temperature 2024-01-18 12:29:00 35.94 Gill [facility] Body weight 2024-01-18 08:35:00 78.971 kg [facility] BMI 2024-01-18 08:35:00 22.85 kg/m2 [facility] Body height 2024-01-15 01:00:00 181.6 cm [facility] Systolic blood pressure 2024-01-17 21:45:00 145 mm[Hg] [facility] Diastolic blood pressure 2024-01-17 21:45:00 67 mm[Hg] [facility] Heart rate 2024-01-17 21:45:00 64 /min [facility] Body temperature 2024-01-17 21:45:00 36.28 Gill [facility] Respiratory rate 2024-01-17 21:45:00 15 /min [facility] Oxygen saturation in Arterial blood by Pulse oximetry 2024-01-17 21:45:00 95 /min [facility] Body weight 2024-01-17 09:10:00 76.8 kg [facility] BMI 2024-01-17 09:10:00 23.95 kg/m2 [facility] Body height 2024-01-15 01:00:00 181.6 cm [facility] Systolic blood pressure 2023-07-11 19:58:00 179 mm[Hg] [facility] Diastolic blood pressure 2023-07-11 19:58:00 78 mm[Hg] [facility] Heart rate 2023-07-11 19:58:00 71 /min [facility] Respiratory rate 2023-07-11 19:49:00 18 /min [facility] Body height 2023-07-11 19:49:00 180.3 cm [facility] Body weight 2023-07-11 19:49:00 82.146 kg [facility] BMI 2023-07-11 19:49:00 25.26 kg/m2 [facility] Oxygen saturation in Arterial blood by Pulse oximetry 2023-07-11 19:49:00 95 /min [facility] height 2021-01-20 10:20:00 73 [in_i] Commo n [facility] weight 2021-01-20 10:20:00 177.5 [lb_av] Co mmon [facility] temperature 2021-01-20 10:20:00 98.5 [degF] Com mon [facility] bmi 2021-01-20 10:20:00 23.42 kg/m2 Comm on [facility] oximetry 2021-01-20 10:20:00 97 % Commo n [facility] blood pressure systolic 2021-01-20 10:20:00 207 mm[Hg] Common [facility] blood pressure diastolic 2021-01-20 10:20:00 97 mm[Hg] Common [facility] BP Systolic 2025-04-24 16:57:00 139 mm[Hg] Step hen F Steven BP Diastolic 2025-04-24 16:57:00 84 mm[Hg] Roel phen F Steven Weight Measured 2025-04-24 16:57:00 162.20 pounds Chris F Steven Height Measured 2025-04-24 16:57:00 69.00 inches Chris F Steven Body Temperature 2025-04-24 16:57:00 97.70 degrees Chris F Steven Heart Rate 2025-04-24 16:57:00 59.00 /min Bette en F Steven Respiratory Rate 2025-04-24 16:57:00 16.00 /min Chris F Steven BP Systolic 2024-07-26 16:24:00 138 mm[Hg] Step hen F Steven BP Diastolic 2024-07-26 16:24:00 88 mm[Hg] Roel phen F Steven Weight Measured 2024-07-26 16:24:00 181.00 pounds Chris F Steven Height Measured 2024-07-26 16:24:00 69.00 inches Chris F Steven Body Temperature 2024-07-26 16:24:00 98.10 degrees Chris F Steven Heart Rate 2024-07-26 16:24:00 69.00 /min Bette en F Steven Respiratory Rate 2024-07-26 16:24:00 18.00 /min Chris F Steven BP Systolic 2024-07-10 09:53:00 138 mm[Hg] Step hen F Steven BP Diastolic 2024-07-10 09:53:00 72 mm[Hg] Roel phen F Steven Weight Measured 2024-07-10 09:53:00 187.00 pounds Chris F Steven Height Measured 2024-07-10 09:53:00 69.00 inches Chrsi F Steven Body Temperature 2024-07-10 09:53:00 97.20 degrees Chris F Steven Heart Rate 2024-07-10 09:53:00 73.00 /min Bette en F Steven Respiratory Rate 2024-07-10 09:53:00 18.00 /min Chris F Steven BP Systolic 2024-06-05 09:43:00 Step hen F Steven BP Diastolic 2024-06-05 09:43:00 Roel phen F Steven Weight Measured 2024-06-05 09:43:00 Chris F Steven Height Measured 2024-06-05 09:43:00 Chris F Steven Body Temperature 2024-06-05 09:43:00 Chris F Steven Heart Rate 2024-06-05 09:43:00 Bette en F Steven Respiratory Rate 2024-06-05 09:43:00 Chris F Steven BP Systolic 2024-04-10 09:12:00 130 mm[Hg] Step hen F Steven BP Diastolic 2024-04-10 09:12:00 60 mm[Hg] Roel phen F Steven Weight Measured 2024-04-10 09:12:00 178.00 pounds Chris F Steven Height Measured 2024-04-10 09:12:00 69.00 inches Chris F Steven Body Temperature 2024-04-10 09:12:00 98.10 degrees Chris F Steven Heart Rate 2024-04-10 09:12:00 96.00 /min Bette en F Steven Respiratory Rate 2024-04-10 09:12:00 20.00 /min Chris F Steven BP Systolic 2024-02-19 14:09:00 142 mm[Hg] Step hen F Steven BP Diastolic 2024-02-19 14:09:00 70 mm[Hg] Roel phen F Steven Weight Measured 2024-02-19 14:09:00 174.00 pounds Chris F Steven Height Measured 2024-02-19 14:09:00 69.00 inches Chris F Steven Body Temperature 2024-02-19 14:09:00 98.10 degrees Chris F Steven Heart Rate 2024-02-19 14:09:00 76.00 /min Bette en F Steven Respiratory Rate 2024-02-19 14:09:00 18.00 /min Chris F Steven BP Systolic 2024-01-12 08:05:00 Step hen F Steven BP Diastolic 2024-01-12 08:05:00 Roel phen F Steven Weight Measured 2024-01-12 08:05:00 199.00 pounds Chris F Steven Height Measured 2024-01-12 08:05:00 69.00 inches Chris F Steven Body Temperature 2024-01-12 08:05:00 Chris F Steven Heart Rate 2024-01-12 08:05:00 Bette en F Steven Respiratory Rate 2024-01-12 08:05:00 Chris F Steven BP Systolic 2023-11-29 10:09:00 180 mm[Hg] Step hen F Steven BP Diastolic 2023-11-29 10:09:00 92 mm[Hg] Roel phen F Steven Weight Measured 2023-11-29 10:09:00 190.00 pounds Chris F Steven Height Measured 2023-11-29 10:09:00 70.00 inches Chris F Steven Body Temperature 2023-11-29 10:09:00 98.20 degrees Chris F Steven Heart Rate 2023-11-29 10:09:00 89.00 /min Bette en F Steven Respiratory Rate 2023-11-29 10:09:00 20.00 /min Chris F Steven BP Systolic 2023-11-21 08:57:00 190 mm[Hg] Step hen F Steven BP Diastolic 2023-11-21 08:57:00 94 mm[Hg] Roel phen F Steven Weight Measured 2023-11-21 08:57:00 190.00 pounds Chris F Steven Height Measured 2023-11-21 08:57:00 70.00 inches Chris F Steven Body Temperature 2023-11-21 08:57:00 98.10 degrees Chris F Steven Heart Rate 2023-11-21 08:57:00 68.00 /min Bette en F Steven Respiratory Rate 2023-11-21 08:57:00 20.00 /min Chris F Steven BP Systolic 2023-11-21 07:49:00 190 mm[Hg] Step hen F Steven BP Diastolic 2023-11-21 07:49:00 94 mm[Hg] Roel phen F Steven Weight Measured 2023-11-21 07:49:00 190.00 pounds Chris F Steven Height Measured 2023-11-21 07:49:00 70.00 inches Chris F Steven Body Temperature 2023-11-21 07:49:00 98.10 degrees Chris F Steven Heart Rate 2023-11-21 07:49:00 68.00 /min Bette en F Steven Respiratory Rate 2023-11-21 07:49:00 20.00 /min Chris F Steven BP Systolic 2023-07-03 19:46:00 Step hen F Steven BP Diastolic 2023-07-03 19:46:00 Roel phen F Steven Weight Measured 2023-07-03 19:46:00 Chris F Steven Height Measured 2023-07-03 19:46:00 Chris F Steven Body Temperature 2023-07-03 19:46:00 Chris F Steven Heart Rate 2023-07-03 19:46:00 Bette en F Steven Respiratory Rate 2023-07-03 19:46:00 Chris F Steven BP Systolic 2023-06-21 12:44:00 170 mm[Hg] Step hen F Steven BP Diastolic 2023-06-21 12:44:00 80 mm[Hg] Roel phen F Steven Weight Measured 2023-06-21 12:44:00 190.00 pounds Chris F Steven Height Measured 2023-06-21 12:44:00 70.00 inches Chris F Steven Body Temperature 2023-06-21 12:44:00 97.20 degrees Chris F Steven Heart Rate 2023-06-21 12:44:00 67.00 /min Bette en F Steven Respiratory Rate 2023-06-21 12:44:00 18.00 /min Chris F Steven BP Systolic 2023-06-21 11:31:00 170 mm[Hg] Step hen F Steven BP Diastolic 2023-06-21 11:31:00 80 mm[Hg] Role phen F Steven Weight Measured 2023-06-21 11:31:00 190.00 pounds Chris F Steven Height Measured 2023-06-21 11:31:00 70.00 inches Chris F Steven Body Temperature 2023-06-21 11:31:00 97.20 degrees Chris F Steven Heart Rate 2023-06-21 11:31:00 67.00 /min Bette en F Steven Respiratory Rate 2023-06-21 11:31:00 18.00 /min Chris F Steven BP Systolic 2023-05-02 14:58:00 182 mm[Hg] Step hen F Steven BP Diastolic 2023-05-02 14:58:00 96 mm[Hg] Roel phen F Steven Weight Measured 2023-05-02 14:58:00 181.40 pounds Chris F Steven Height Measured 2023-05-02 14:58:00 70.00 inches Chris F Steven Body Temperature 2023-05-02 14:58:00 97.90 degrees Chris F Steven Heart Rate 2023-05-02 14:58:00 60.00 /min Bette en F Steven Respiratory Rate 2023-05-02 14:58:00 18.00 /min Chris F Steven BP Systolic 2023-04-07 08:24:00 169 mm[Hg] Step hen F Steven BP Diastolic 2023-04-07 08:24:00 80 mm[Hg] Roel phen F Steven Weight Measured 2023-04-07 08:24:00 189.60 pounds Chris F Steven Height Measured 2023-04-07 08:24:00 70.00 inches Chris F Steven Body Temperature 2023-04-07 08:24:00 98.10 degrees Chris F Steven Heart Rate 2023-04-07 08:24:00 60.00 /min Bette en F Steven Respiratory Rate 2023-04-07 08:24:00 Chris F Steven BP Systolic 2022-07-20 08:18:00 156 mm[Hg] Step hen F Steven BP Diastolic 2022-07-20 08:18:00 76 mm[Hg] Roel phen F Steven Weight Measured 2022-07-20 08:18:00 191.20 pounds Chris F Steven Height Measured 2022-07-20 08:18:00 70.00 inches Chris F Steven Body Temperature 2022-07-20 08:18:00 98.10 degrees Chris F Steven Heart Rate 2022-07-20 08:18:00 59.00 /min Bette en F Steven Respiratory Rate 2022-07-20 08:18:00 17.00 /min Chris F Steven BP Systolic 2022-07-14 17:18:00 152 mm[Hg] BP Diastolic 2022-07-14 17:18:00 79 mm[Hg] Weight Measured 2022-07-14 17:18:00 193.40 pounds Height Measured 2022-07-14 17:18:00 70.00 inches Body Temperature 2022-07-14 17:18:00 97.40 degrees Heart Rate 2022-07-14 17:18:00 65.00 /min Respiratory Rate 2022-07-14 17:18:00 BP Systolic 2021-11-15 09:42:00 130 mm[Hg] BP Diastolic 2021-11-15 09:42:00 59 mm[Hg] Weight Measured 2021-11-15 09:42:00 184.00 pounds Height Measured 2021-11-15 09:42:00 70.00 inches Body Temperature 2021-11-15 09:42:00 98.50 degrees Heart Rate 2021-11-15 09:42:00 60.00 /min Respiratory Rate 2021-11-15 09:42:00 Procedures Procedure Date / Time Performed Performing Clinician Source MAGNESIUM 2024-01-19 09:44:00 Carmen [facility] BASIC METABOLIC PANEL (NA, K, CL, CO2, GLUCOSE, BUN, CREATININE, CA) 2024-01-19 09:44:00 Carmen [facility] CBC WITH DIFF 2024-01-19 09:44:00 Carmen [facility] MAGNESIUM 2024-01-19 09:44:00 Carmen [facility] BASIC METABOLIC PANEL (NA, K, CL, CO2, GLUCOSE, BUN, CREATININE, CA) 2024-01-19 09:44:00 Carmen [facility] CBC WITH DIFF 2024-01-19 09:44:00 Carmen [facility] ACTIVATED PARTIAL THRMPLAS NEETA 2024-01-19 02:01:[facility]A 2024-01-19 02:01:00 Franny Ballesteros [facility] POCT ACT LOW RANGE 2024-01-19 00:08:00 Baljeet Vega [facility] POCT ACT LOW RANGE 2024-01-19 00:08:00 Baljeet Vega [facility] POCT ACT LOW RANGE 2024-01-19 00:08:00 Baljeet Vega [facility] POCT ACT LOW RANGE 2024-01-18 22:57:00 Baljeet Vega [facility] POCT ACT LOW RANGE 2024-01-18 22:57:00 Baljeet Vega [facility] POCT ACT LOW RANGE 2024-01-18 22:57:00 Baljeet Vega [facility] CATH PROCEDURE LOG 2024-01-18 22:24:24 Motiwshruthi [facility] CATH PROCEDURE LOG 2024-01-18 22:24:24 Motiwshruthi, [facility] CATH PROCEDURE LOG 2024-01-18 22:24:24 Nesha, [facility] CARDIAC CATHETERIZATION 2024-01-18 22:05:00 Marla Bush ma [facility] NM CARDIAC INFARCTION SPECT 2024-01-18 15:27:00 Sally Morales [facility] MAGNESIUM 2024-01-18 11:12:00 Bill Guy [facility] BASIC METABOLIC PANEL (NA, K, CL, CO2, GLUCOSE, BUN, CREATININE, CA) 2024-01-18 11:12:00 Efraín Guy [facility] CBC WITH DIFF 2024-01-18 11:12:00 Bill Guy [facility] MAGNESIUM 2024-01-18 11:12:00 Bill Guy [facility] BASIC METABOLIC PANEL (NA, K, CL, CO2, GLUCOSE, BUN, CREATININE, CA) 2024-01-18 11:12:00 Efraín Guy [facility] CBC WITH DIFF 2024-01-18 11:12:00 Bill Guy [facility] MAGNESIUM 2024-01-18 11:12:00 Bill Guy [facility] BASIC METABOLIC PANEL (NA, K, CL, CO2, GLUCOSE, BUN, CREATININE, CA) 2024-01-18 11:12:00 Efraín Guy [facility] CBC WITH DIFF 2024-01-18 11:12:00 Bill Guy [facility] CATH PROCEDURE LOG 2024-01-17 19:06:34 Mik Bush [facility] CATH PROCEDURE LOG 2024-01-17 19:06:34 BushMarlajorge alberto Garnett [facility] CATH PROCEDURE LOG 2024-01-17 19:06:34 Mik Bush [facility] CARDIAC CATHETERIZATION 2024-01-17 18:46:00 Marla Bush ma [facility] CARDIAC CATHETERIZATION 2024-01-17 18:46:00 Marla Bush ma [facility] CARDIAC CATHETERIZATION 2024-01-17 18:46:00 Marla Bush ma [facility] MAGNESIUM 2024-01-17 09:19:00 Carmen [facility] BASIC METABOLIC PANEL (NA, K, CL, CO2, GLUCOSE, BUN, CREATININE, CA) 2024-01-17 09:19:00 Cramen [facility] CBC WITH DIFF 2024-01-17 09:19:00 Carmen [facility] MAGNESIUM 2024-01-17 09:19:00 Carmen [facility] BASIC METABOLIC PANEL (NA, K, CL, CO2, GLUCOSE, BUN, CREATININE, CA) 2024-01-17 09:19:00 Carmen [facility] CBC WITH DIFF 2024-01-17 09:19:00 Carmen [facility] MAGNESIUM 2024-01-17 09:19:00 [facility] (NA, K, CL, CO2, GLUCOSE, BUN, CREATININE, CA) 2024-01-17 09:19:00 Carmen [facility] CBC WITH DIFF 2024-01-17 09:19:00 Carmen [facility] MAGNESIUM 2024-01-16 08:54:00 Carmen [facility] BASIC METABOLIC PANEL (NA, K, CL, CO2, GLUCOSE, BUN, CREATININE, CA) 2024-01-16 08:54:00 Carmen [facility] CBC WITH DIFF 2024-01-16 08:54:00 Carmen [facility] MAGNESIUM 2024-01-16 08:54:00 Carmen [facility] BASIC METABOLIC PANEL (NA, K, CL, CO2, GLUCOSE, BUN, CREATININE, CA) 2024-01-16 08:54:00 Carmen [facility] CBC WITH DIFF 2024-01-16 08:54:00 Carmen [facility] MAGNESIUM 2024-01-16 08:54[facility] (NA, K, CL, CO2, GLUCOSE, BUN, CREATININE, CA) 2024-01-16 08:54:00 Carmen [facility] CBC WITH DIFF 2024-01-16 08:54:00 Carmen [facility] TRANSTHORACIC ECHO (TTE) COMPLETE 2024-01-15 20:40:00 Sunil [facility] TRANSTHORACIC ECHO (TTE) COMPLETE 2024-01-15 20:40:00 Sunil [facility] TRANSTHORACIC ECHO (TTE) COMPLETE 2024-01-15 20:40:00 [facility] MAGNESIUM 2024-01-15 09:41:00 [facility] BASIC METABOLIC PANEL (NA, K, CL, CO2, GLUCOSE, BUN, CREATININE, CA) 2024-01-15 09:41:00 [facility] WITH DIFF 2024-01-15 09:41:00 [facility] N-TERMINAL PRO-BNP 2024-01-15 09:41:00 Efraín Guy [facility] MAGNESIUM 2024-01-15 09:41:[address] [facility] BASIC METABOLIC PANEL (NA, K, CL, CO2, GLUCOSE, BUN, CREATININE, CA) 2024-01-15 09:41:00 Marcus [facility] CBC WITH DIFF 2024-01-15 09:41:00 [facility] N-TERMINAL PRO-BNP 2024-01-15 09:41:00 Efraín Guy [facility] MAGNESIUM 2024-01-15 09:41:[address] [facility] BASIC METABOLIC PANEL (NA, K, CL, CO2, GLUCOSE, BUN, CREATININE, CA) 2024-01-15 09:41:00 Marcus [facility] CBC WITH DIFF 2024-01-15 09:41:00 Marcus [facility] N-TERMINAL PRO-BNP 2024-01-15 09:41:00 Efraín Guy [facility] TROPONIN I 2024-01-14 13:39:00 William [facility] TROPONIN I 2024-01-14 13:39:00 William [facility] TROPONIN I 2024-01-14 13:39:00 William [facility] TROPONIN I 2024-01-14 10:44:00 William [facility] HEPATIC FUNCTION PANEL (83722) (ALB,T.PRO,BILI T,BU/BC,ALT,AST,ALK PHOS) 2024-01-14 10:44:00 Marcus [facility] BASIC METABOLIC PANEL (NA, K, CL, CO2, GLUCOSE, BUN, CREATININE, CA) 2024-01-14 10:44:00 [facility] CBC WITH DIFF 2024-01-14 10:44:00 [facility] PROTHROMBIN TIME / INR 2024-01-14 10:44:00 Karson Velazquez [facility] PHOSPHORUS 2024-01-14 10:44:00 [facility] MAGNESIUM 2024-01-14 10:44:00 [facility] TROPONIN I 2024-01-14 10:44:00 William, Brianna [facility] HEPATIC FUNCTION PANEL (16427) (ALB,T.PRO,BILI T,BU/BC,ALT,AST,ALK PHOS) 2024-01-14 10:44:00 Ifeoma Velazquez [facility] BASIC METABOLIC PANEL (NA, K, CL, CO2, GLUCOSE, BUN, CREATININE, CA) 2024-01-14 10:44:00 [facility] CBC WITH DIFF 2024-01-14 10:44:00 [facility] PROTHROMBIN TIME / INR 2024-01-14 10:44:00 Karson Velazquez [facility] PHOSPHORUS 2024-01-14 10:44:00 [facility] MAGNESIUM 2024-01-14 10:44:[facility] 2024-01-14 10:44:00 Brianna Thomas [facility] HEPATIC FUNCTION PANEL (36733) (ALB,T.PRO,BILI T,BU/BC,ALT,AST,ALK PHOS) 2024-01-14 10:44:00 Ifeoma Velazquez [facility] BASIC METABOLIC PANEL (NA, K, CL, CO2, GLUCOSE, BUN, CREATININE, CA) 2024-01-14 10:44:00 [facility] CBC WITH DIFF 2024-01-14 10:44:00 [facility] PROTHROMBIN TIME / INR 2024-01-14 10:44:00 Karson Velazquez [facility] PHOSPHORUS 2024-01-14 10:44:00 [facility] MAGNESIUM 2024-01-14 10:44:00 [facility] TROPONIN I 2024-01-14 01:40:00 Brianna Thomas [facility] TROPONIN I 2024-01-14 01:40:00 Brianna Thomas [facility] TROPONIN I 2024-01-14 01:40:00 Brianna Thomas [facility] TROPONIN I 2024-01-13 20:06:00 Brianna Thomas [facility] TROPONIN I 2024-01-13 20:06:00 Brianna Thomas [facility] TROPONIN I 2024-01-13 20:06:00 Brianna Thomas [facility] ABDOMEN LIMITED 2024-01-13 17:08:00 [facility] 2024-01-13 17:08:00 Salinas Barber [facility] ABDOMEN LIMITED 2024-01-13 17:08:00 Salinas Barber [facility] LACTIC ACID WHOLE BLOOD 2024-01-13 15:24:00 [facility] LACTIC ACID WHOLE BLOOD 2024-01-13 15:24:00 [facility] LACTIC ACID WHOLE BLOOD 2024-01-13 15:24:00 [facility] URINALYSIS 2024-01-13 15:01:00 [facility], URINE RANDOM 2024-01-13 15:01:00 Ranjit [facility] SODIUM, URINE RANDOM 2024-01-13 15:01:00 [facility] URINALYSIS 2024-01-13 15:01:00 [facility] CREATININE, URINE RANDOM 2024-01-13 15:01:00 Ranjit Barber [facility] SODIUM, URINE RANDOM 2024-01-13 15:01:00 [facility] URINALYSIS 2024-01-13 15:01:00 [facility] CREATININE, URINE RANDOM 2024-01-13 15:01:00 Ranjit Barber [facility] SODIUM, URINE RANDOM 2024-01-13 15:01:00 [facility] HB ECG ROUTINE & RHYTHM STRIP 2024-01-13 14:55:18 [facility] HB ECG ROUTINE & RHYTHM STRIP 2024-01-13 14:55:18 [facility] HB ECG ROUTINE & RHYTHM STRIP 2024-01-13 14:55:18 [facility] MAGNESIUM 2024-01-13 14:16:00 [facility] FERRITIN SERUM 2024-01-13 14:16:00 Sunil [facility] TROPONIN I 2024-01-13 14:16:00 [facility] HEPATIC FUNCTION PANEL (62793) (ALB,T.PRO,BILI T,BU/BC,ALT,AST,ALK PHOS) 2024-01-13 14:16:00 [facility] BASIC METABOLIC PANEL (NA, K, CL, CO2, GLUCOSE, BUN, CREATININE, CA) 2024-01-13 14:16:00 [facility] IRON PANEL 2024-01-13 14:16:00 [facility] PROTHROMBIN TIME / INR 2024-01-13 14:16:00 [facility] D-DIMER 2024-01-13 14:16:00 [facility] ACTIVATED PARTIAL THRMPLAS NEETA 2024-01-13 14:16:00 [facility] N-TERMINAL PRO-BNP 2024-01-13 14:16:00 [facility] MRSA / MSSA SCREEN BY PCR, LUIS 2024-01-13 14:16:00 [facility] MAGNESIUM 2024-01-13 14:16:00 [facility] FERRITIN SERUM 2024-01-13 14:16:00 Sunil [facility] TROPONIN I 2024-01-13 14:16:00 [facility] HEPATIC FUNCTION PANEL ([id number]) (ALB,T.PRO,BILI T,BU/BC,ALT,AST,ALK PHOS) 2024-01-13 14:16:00 [facility] BASIC METABOLIC PANEL (NA, K, CL, CO2, GLUCOSE, BUN, CREATININE, CA) 2024-01-13 14:16:00 [facility] IRON PANEL 2024-01-13 14:16:00 [facility] PROTHROMBIN TIME / INR 2024-01-13 14:16:00 [facility] D-DIMER 2024-01-13 14:16:00 [facility] ACTIVATED PARTIAL THRMPLAS NEETA 2024-01-13 14:16:00 [facility] N-TERMINAL PRO-BNP 2024-01-13 14:16:00 Salinas Barber [facility] MRSA / MSSA SCREEN BY PCR, NARDAMIAN 2024-01-13 14:16:00 [facility] MAGNESIUM 2024-01-13 14:16:00 [facility] FERRITIN SERUM 2024-01-13 14:16:00 Sunil [facility] TROPONIN I 2024-01-13 14:16:00 [facility] HEPATIC FUNCTION PANEL (41153) (ALB,T.PRO,BILI T,BU/BC,ALT,AST,ALK PHOS) 2024-01-13 14:16:00 [facility] BASIC METABOLIC PANEL (NA, K, CL, CO2, GLUCOSE, BUN, CREATININE, CA) 2024-01-13 14:16:00 [facility] IRON PANEL 2024-01-13 14:16:00 [facility] PROTHROMBIN TIME / INR 2024-01-13 14:16:00 [facility] D-DIMER 2024-01-13 14:16:00 [facility] ACTIVATED PARTIAL THRMPLAS NEETA 2024-01-13 14:16:00 [facility] N-TERMINAL PRO-BNP 2024-01-13 14:16:00 Salinas Barber [facility] MRSA / MSSA SCREEN BY PCR, LUIS 2024-01-13 14:16:00 Salinas Barber [facility] XR CHEST 1 2024-01-13 09:52:02 Risa Woodward [facility] XR CHEST 1 2024-01-13 09:52:02 Risa Woodward [facility] XR CHEST 1 2024-01-13 09:52:02 Risa Woodward [facility] BASIC METABOLIC PANEL (NA, K, CL, CO2, GLUCOSE, BUN, CREATININE, CA) 2024-01-13 09:48:00 Risa Woodward [facility] LIPID PANEL (77013)(TOTAL CHOLESTEROL, TRIGLYCERIDES, HDL) 2024-01-13 09:48:00 [facility]OL[facility] PANEL (NA, K, CL, CO2, GLUCOSE, BUN, CREATININE, CA) 2024-01-13 09:48:00 Risa Woodward [facility] LIPID PANEL (09761)(TOTAL CHOLESTEROL, TRIGLYCERIDES, HDL) 2024-01-13 09:48:00 [facility] BASIC METABOLIC PANEL (NA, K, CL, CO2, GLUCOSE, BUN, CREATININE, CA) 2024-01-13 09:48:00 Risa Woodward [facility] LIPID PANEL (94355)(TOTAL CHOLESTEROL, TRIGLYCERIDES, HDL) 2024-01-13 09:48:00 Salinas Barber [facility] HB ECG ROUTINE & RHYTHM STRIP 2024-01-13 09:44:33 Risa Woodward [facility] HB ECG ROUTINE & RHYTHM STRIP 2024-01-13 09:44:33 Risa Woodward [facility] HB ECG ROUTINE & RHYTHM STRIP 2024-01-13 09:44:33 Risa Woodward [facility] TROPONIN I 2024-01-13 08:49:00 Risa Woodward [facility] COMP. METABOLIC PANEL (61067) 2024-01-13 08:49:00 Risa Woodward [facility] CBC WITH DIFF 2024-01-13 08:49:00 Risa Woodward [facility] GLYCOSYLATED HEMOGLOBIN (A1C) 2024-01-13 08:49:00 Salinas Barber [facility] N-TERMINAL PRO-BNP 2024-01-13 08:49:00 Johnna Woodward [facility] MAGNESIUM 2024-01-13 08:49:00 [facility]isa [facility] TROPONIN I 2024-01-13 08:49:00 Risa Woodward [facility] COMP. METABOLIC PANEL (67996) 2024-01-13 08:49:00 Risa Woodward [facility] CBC WITH DIFF 2024-01-13 08:49:00 Risa Woodward [facility] GLYCOSYLATED HEMOGLOBIN (A1C) 2024-01-13 08:49:00 Salinas Barber [facility] N-TERMINAL PRO-BNP 2024-01-13 08:49:00 Johnna Woodward [facility] MAGNESIUM 2024-01-13 08:49:00 [facility]isa [facility] TROPONIN I 2024-01-13 08:49:00 Risa Woodward [facility] COMP. METABOLIC PANEL (20546) 2024-01-13 08:49:00 Risa Woodward [facility] CBC WITH DIFF 2024-01-13 08:49:00 Risa Woodward [facility] GLYCOSYLATED HEMOGLOBIN (A1C) 2024-01-13 08:49:00 Salinas Barber [facility] N-TERMINAL PRO-BNP 2024-01-13 08:49:00 Johnna Woodward [facility] MAGNESIUM 2024-01-13 08:49:00 Risa Woodward [facility] HB ECG ROUTINE & RHYTHM STRIP 2023-07-11 19:57:21 Ke Cole [facility] CONSENT/REFUSAL FOR DIAGNOSIS AND TREATMENT 2023-07-11 19:31:20 Doctor Unassigned, [place] [facility] US SCROTUM AND CONTENTS 2019-10-11 14:54:28 Moe n, Paper [facility] Plan of Care Planned Activity Planned Date Details Comments Source Goal Plan of Care Note [code = 25493-7] Goal Plan of Care Note [code = 87927-7] Goal Plan of Care Note [code = 72788-6] Goal Plan of Care Note [code = 18982-6] Goal Plan of Care Note [code = 41186-7] Goal Plan of Care Note [code = 76932-1] Goal Plan of Care Note [code = 32577-3] Goal Plan of Care Note [code = 27807-6] Goal Plan of Care Note [code = 65091-2] Goal Plan of Care Note [code = 69803-0] Goal Plan of Care Note [code = 20725-5] Goal Plan of Care Note [code = 12488-5] Goal Plan of Care Note [code = 49223-7] Goal Plan of Care Note [code = 58339-5] Goal Plan of Care Note [code = 75165-4] Goal Plan of Care Note [code = 37430-3] Goal Plan of Care Note [code = 18149-5] Goal Plan of Care Note [code = 51782-8] Goal Plan of Care Note [code = 03594-5] Encounters Start Date/Time End Date/Time Encounter Type Admission Type Attending [facility] Care Facility Care Department Encounter ID Source 2021-09-29 13:05:09 Outpatient Santhosh Vadim [facility] [id number] [facility] 2021-09-29 13:04:45 Outpatient SanthoshVadim [facility] [id number] [facility] 2021-09-29 13:02:35 Outpatient Santhosh Vadim [facility] [id number] [facility] 2021-09-29 11:28:14 Outpatient Vadim Trevizo [facility] [id number] [facility] 2021-09-29 11:24:06 Outpatient Vadim Trevizo [facility] [id number] [facility] 2021-09-29 11:02:49 Outpatient Vadim Trevizo [facility] [id number] [facility] 2025-06-12 17:07:05 2025-06-12 17:07:05 Outpatient SFA SFA [id number] Chris Harris 2025-04-24 16:48:39 2025-04-24 16:48:39 Outpatient SFA SFA [id number] Chris Harris 2025-04-24 00:00:00 2025-04-24 00:00:00 Outpatient Visit SFA [id number] Chris Harris 2025-02-05 00:00:00 2025-02-05 00:00:00 Outpatient ROSA ISELA ORTIZ [id number] Haylie [facility] 2024-12-25 08:45:00 2024-12-25 08:45:00 Outpatient HAYLIE CROCKER [id number] Haylie [facility] 2024-11-28 14:00:00 2024-11-28 14:00:00 Outpatient KEY MONTANEZ [id number] [facility] 2024-11-28 11:00:00 2024-11-28 11:00:00 Outpatient ROSA ISELA ORTIZ [id number] Haylie [facility] 2024-11-06 00:00:00 2024-11-06 00:00:00 Outpatient KEY MONTANEZ [id number] [facility] 2024-11-04 09:00:00 2024-11-04 09:00:00 Outpatient PHIL HDZ [id number] [facility] 2024-10-28 09:50:00 2024-10-28 09:50:00 Outpatient JUAN MIGUEL CROCKER [id number] [facility] 2024-10-28 08:30:00 2024-10-28 08:30:00 Outpatient KEY MONTANEZ [id number] [facility] 2024-10-28 00:00:00 2024-10-28 00:00:00 Outpatient KEY MONTANEZ [id number] Hayliedeanna Tomlin 2024-10-28 00:00:00 2024-10-28 00:00:00 Outpatient KEY MONTANEZ HAYLIE CROCKER [id number] Haylie Nabor 2024-10-09 00:00:00 2024-10-09 00:00:00 Outpatient MD HAYLIE ROJAS [id number] Haylie Nabor 2024-10-07 09:55:00 2024-10-07 09:55:00 Outpatient RODRICK DIALLO HAYLIE CROCKER [id number] Haylie annabella 2024-10-07 00:00:00 2024-10-07 00:00:00 Outpatient KEY MONTANEZ HAYLIE CROCKER [id number] Haylie annabella 2024-10-03 00:00:00 2024-10-03 00:00:00 Outpatient KEY MONTANEZ HAYLIE CROCKER [id number] Haylie Bookerannabella 2024-10-01 09:50:00 2024-10-01 09:50:00 Outpatient LAB90 HAYLIE CROCKER [id number] Haylie Bookerannabella 2024-09-30 10:30:00 2024-09-30 10:30:00 Outpatient KEY MONTANEZ HAYLIE CROCKER [id number] Haylie [facility] 2024-08-08 00:00:00 2024-08-08 00:00:00 Outpatient MD HAYLIE ROJAS [id number] [facility] 2024-07-26 16:19:50 2024-07-26 16:19:50 Outpatient SFA SFA [id number] Chris Harris 2024-07-26 12:00:00 2024-07-26 12:00:00 Outpatient [id number] HAYLIE CROCKER [id number] [facility] 2024-07-26 12:00:00 2024-07-26 12:00:00 Outpatient TRED47 HAYLIE CROCKER [id number] Halyie [facility] 2024-07-26 00:00:00 2024-07-26 00:00:00 Outpatient Visit SFA [id number] Chris Harris 2024-07-25 11:30:00 2024-07-25 11:30:00 Outpatient TRED4Ruben CROCKER [id number] Haylie Tomlin 2024-07-22 14:45:00 2024-07-22 14:45:00 Outpatient TRED4Ruben CROCKER [id number] Haylie Tomlin 2024-07-22 14:25:00 2024-07-22 14:25:00 Outpatient RODRICK DIALLO [id number] Haylie Tomlin 2024-07-10 09:51:08 2024-07-10 09:51:08 Outpatient SFA SFA [id number] Chris Harris 2024-07-10 00:00:00 2024-07-10 00:00:00 Outpatient Visit SFA [id number] Chris Harris 2024-06-05 09:49:15 2024-06-05 09:49:15 Outpatient SFA [facility] [id number] Chris Harris 2024-06-05 00:00:00 2024-06-05 00:00:00 Outpatient Visit SFA [id number] Chris Harris 2024-04-10 09:02:17 2024-04-10 09:02:17 Outpatient SFA [facility] [id number] Chris Harris 2024-04-10 00:00:00 2024-04-10 00:00:00 Outpatient Visit SFA [id number] Chris Harris 2024-03-01 11:00:00 2024-03-01 11:54:20 Outpatient KE GRIFFIN [facility] [id number] [facility] 2024-03-01 11:00:00 2024-03-01 11:54:20 Office Visit Ke Cole [facility] [id number] 350.1.13.10 4.2.7.2.686 [id number] [facility] 2024-02-19 14:08:50 2024-02-19 14:08:50 Outpatient SFA [facility] [id number] Chris Harris 2024-02-19 00:00:00 2024-02-19 00:00:00 Outpatient Visit [facility] [id number] Chris Harris 2024-01-13 03:35:00 2024-01-19 17:54:00 Hospital Encounter Risa Woodward, Garland Law, Guerita [facility] [id number] 350.1.13.10 4.2.7.2.686 [id number] [facility] 2024-01-13 03:35:00 2024-01-19 17:54:00 [facility] [id number] [facility] 2024-01-18 15:00:00 2024-01-18 17:00:00 Surgery [facility] [id number] [id number] 4.2.7.2.686 [id number] [facility] 2024-01-18 10:30:00 2024-01-18 10:30:00 Outpatient KE GRIFFIN [facility] [id number] [facility] 2024-01-17 15:55:00 2024-01-17 16:55:00 Surgery [facility] [id number] 350.1.13.10 4.2.7.2.686 [id number] [facility] 2024-01-12 07:57:47 2024-01-12 07:57:47 Outpatient SFA [facility] [id number] Chris Harris 2024-01-12 00:00:00 2024-01-12 00:00:00 Outpatient Visit SFA [id number] Chris Harris 2023-11-29 10:08:31 2023-11-29 10:08:31 Outpatient SFA [facility] [id number] Chris Harris 2023-11-21 07:48:55 2023-11-21 07:48:55 Outpatient SFA [facility] [id number] Chris Harris 2023-10-10 13:00:00 2023-10-10 13:00:00 Outpatient JENNIFER GRIFFINLIBERTY [facility] [id number] [facility] 2023-07-11 13:30:00 2023-07-11 14:36:26 [id number] 2023-07-11 13:30:00 2023-07-11 14:36:26 [facility] 1..840.114 350.1.13.10 4.2.7.2.686 [id number] [facility] 2023-07-11 00:00:00 2023-07-11 00:00:00 Orders Only Doctor Unassigned, [place] [facility] 1.840.114 350.1.13.10 4.2.7.2.686 [id number] [facility] 2023-06-21 11:22:57 2023-06-21 11:22:57 Outpatient SFA SFA [id number] Chris Harris 2023-05-02 14:52:33 2023-05-02 14:52:33 Outpatient SFA [facility] [id number] Chris Harris 2023-04-07 08:22:30 2023-04-07 08:22:30 Outpatient SFA SFA [id number] Chris Harris 2022-07-20 08:06:54 2022-07-20 08:06:54 Outpatient SFA [facility] [id number] Chris Harris 2022-07-14 17:15:48 2022-07-14 17:15:48 Outpatient SFA [facility] [id number] Chris Harris 2022-07-14 00:00:00 2022-07-14 00:00:00 Outpatient Visit [id number] 2021-01-20 00:00:00 2021-01-20 00:00:00 OFFICE VISIT EST PT LEVEL 3 STLMLC STLMLC [id number] [facility] 2020-03-13 15:21:00 2020-03-13 15:21:00 [facility] [id number] [facility] 2020-03-11 11:15:00 2020-03-11 11:15:00 [facility] [id number] [facility] 2020-03-05 08:03:00 2020-03-05 08:03:00 [facility] [id number] [facility] 2020-02-27 13:34:00 2020-02-27 13:34:00 [facility] [id number] [facility] 2020-02-26 10:00:00 2020-02-26 10:00:[address] [facility] [address] [facility] [id number] [facility] 2020-01-23 14:47:00 2020-01-23 14:47:00 [facility] [id number] [facility] 2020-01-22 14:30:00 2020-01-22 14:30:00 [facility] [id number] [facility] 2020-01-09 08:03:00 2020-01-09 08:03:00 [facility] [id number] [facility] 2019-11-26 10:15:00 2019-11-26 10:15:00 [facility] [id number] [facility] 2019-11-11 15:19:00 2019-11-11 15:19:00 [facility] [id number] [facility] 2019-11-05 10:27:00 2019-11-05 10:27:00 [facility] [id number] [facility] 2019-10-25 11:08:00 2019-10-25 11:08:00 [facility] [id number] [facility] 2019-10-22 15:00:00 2019-10-22 15:00:00 [facility] [id number] [facility] 2019-10-17 13:16:00 2019-10-17 13:16:00 [facility] [id number] [facility] 2019-10-11 08:18:26 2019-10-11 23:59:00 Outpatient R RADIOLOGY [facility] [id number] [facility] 2019-10-11 08:00:00 2019-10-11 23:59:00 Hospital Encounter Radiology [facility] [id number] [id number] 2019-10-11 08:00:00 2019-10-11 23:59:00 Hospital Encounter Radiology [facility] [id number] [facility] 2019-09-26 14:15:00 2019-09-26 14:15:00 [facility] [id number] [facility] 2019-09-06 11:47:29 2019-09-06 23:59:00 Outpatient R RADIOLOGY [facility] [id number] [facility] Results Test Description Test Time Test Comments Results Result Co mments Source Chris JudgeLTSINTIA, [id number] 00:00:00* Test Item Value Reference Range Interpretation Comme nts CULTURE, ROUTINE (test code = 85131) SPECIMEN NUMBER: [id number] Chris JudgeLTSINTIA, [id number] 00:00:00* Test Item Value Reference Range Interpretation Comme nts CULTURE, ROUTINE (test code = 45751) SPECIMEN NUMBER: [id number] Chris Miller CARDIAC INFARCTION [id number] 12:58:41PYP MYOCARDIAL IMAGING AMYLOIDOSIS History: 63 year old male with history of chronic heart failure andhyponatremia, requesting evaluation for amyloidosis. Procedure: At rest patient received 25 mCi of technetium 99m pyrophosphatePYP, planar and SPECT imaging was obtained. Findings: There is no myocardial uptake. SPECT and planar images show nosignificant activity over the left ventricular myocardium. The rib cage andbony structures are unremarkable. Grade 1.Cardiac to background ratio: 1.26.[facility] BranchPO[facility] ACT Low [id number] 00:12:25* Test Item Value Reference Range Interpretation Comme nts ACTLR (test code = [id number]) 244 89-169 H Lab Interpretation (test cod e = 92472-0) [facility] [id number] 00:12:25* Test Item Value Reference Range Interpretation Comme nts ACTLR (test code = 2694365271) 244 89-169 H Lab Interpretation (test cod e = 89324-4) Abnormal [facility] ACT Low [id number] 00:12:25* Test Item Value Reference Range Interpretation Comme nts ACTLR (test code = 2046711693) 244 89-169 H Lab Interpretation (test cod e = 25226-8) Abnormal [facility] ACT Low [id number] 23:02:07* Test Item Value Reference Range Interpretation Comme nts ACTLR (test code = 5715567990) 319 89-169 H Lab Interpretation (test cod e = 53196-9) Abnormal [facility] ACT Low [id number] 23:02:07* Test Item Value Reference Range Interpretation Comme nts ACTLR (test code = 1307533479) 319 89-169 H Lab Interpretation (test cod e = 03403-8) Abnormal [facility] ACT Low [id number] 23:02:07* Test Item Value Reference Range Interpretation Comme nts ACTLR (test code = 1152571674) 319 89-169 H Lab Interpretation (test cod e = 17630-4) [facility] 00:47:06* Test Item Value Reference Range Interpretation Comme nts Systolic BP (test code = 8346935849) 147 mmHg Diastolic BP (test code = 6983924749) 67 mmHg Height (test code = 2306105794) 71 in Weight (test code = 8273423463) 180 lbs Heart Rate (test code = 3265766608) 54 bpm BSA (test code = 7574183161) 2.02 m2 Ao root diam (test code = 2759315702) 3.20 cm Aortic root (test code = 0604904437) 3.2 cm Ao root annulus (test code = 9616551134) 3.2 cm LA size (test code = 6984157632) 5.7 cm LVOT diameter (test code = 7131152535) 2.30 cm LVOT area (test code = 0261769019) 4.20 cm2 LVIDD (test code = 1528617363) 5.00 cm Left Ventricular End Diastolic Volume by Teichholz Method (test code = 9685622) 120.2 mL IVS (test code = 2308905264) 0.75 cm Interventricular Septum Diastolic Thickness by 2D (test code = 9073468) 0.75 cm LVPWD (test code = 7767753581) 0.91 cm PW (test code = 0429940606) 0.91 cm 0.6-1.1 EF(Teich) (test code = 2913575545) 50.80 % LVIDS (test code = 3904111036) 3.70 cm Left Ventricular End Systolic Volume by Teichholz Method (test code = 1345307) 59.2 mL FS (test code = 2577958971) 26 % EF - 2D (test code = 00398211) 50.80 % MV Prop V (test code = 0833775903) 50.60 cm/s MV Peak E Yonathan (test code = 3996420541) 122.5 cm/s MV Peak A Yonathan (test code = 6458238242) 20.8 cm/s E/A ratio (test code = 7238271700) 5.90 ratio E wave decelartion time (test code = 0255161894) 0.18 s LAV(MOD-sp4) (test code = 6753038588) 139.50 mL Aortic valve mean velocity (test code = 3110851581) 97.8 cm/s Ao peak yonathan (test code = 6326938945) 153.1 cm/s Ao VTI (test code = 3651498021) 32.0 cm Ao max PG (test code = 9166801396) 9.40 mm[Hg] AV peak gradient (test code = 4546913625) 9.4 mmHg AV mean gradient (test code = 1396869952) 4.3 mmHg LVOT stroke volume (test code = 6445218275) 82.80 cm3 LVOT peak yonathan (test code = 2327177827) 90.0 cm/s LVOT mn grad (test code = 3971048455) 1.6 mmHg AV LVOT peak gradient (test code = 0796124535) 3.2 mmHg LVOT peak VTI (test code = 5493373061) 19.9 cm AV area by cont VTI (test code = 3211434966) 2.6 cm2 AV area peak yonathan (test code = 7481188653) 2.5 cm2 LV V1 mean (test code = 0370664027) 57.90 cm/s AV valve area (test code = 8776115148) 2.60 cm2 Tapse (test code = 1397938422) 1.42 cm LA Volume Index (BP) (test code = 8882350617) 73.5 mL/m2 LA volume (BP) (test code = 1619112479) 148.2 mL LAV(MOD-sp2) (test code = 2785759625) 129.60 mL A4C EF (test code = 0913805486) 47.30 % EF(sp4-el) (test code = 6835472934) 47.00 % SV(MOD-sp4) (test code = 1484352696) 72.20 mL SV(sp4-el) (test code = 6395958184) 70.00 mL LV Diastolic Volume (BP) (test code = 6119890517) 162.6 mL A2C EF (test code = 1820510797) 38.30 % EF(MOD-bp) (test code = 9621022671) 42.50 % EF(sp2-el) (test code = 0850128051) 43.20 % LV Systolic Volume (BP) (test code = 9746382044) 93.5 mL SV(MOD-bp) (test code = 2825871860) 69.10 mL SV(MOD-sp2) (test code = 7229639043) 65.90 mL EF (test code = 4257912345) 43 Left Ventricular Stroke Volume by 2-D Biplane-MOD (test code = 8727323) 69.1 mL LV Diastolic Volume Index (BP) (test code = 8686143367) 97.6 mL/m2 LV Systolic Volume Index (BP) (test code = 2290289674) 61.5 mL/m2 Radiology Study observation (narrative) (test code = 96176-8) LONDON (test code = LONDON) ?Left?Ventricle: Left ventricle is mildly dilated. Dilated by LV volume index calculation. ?Normal wall thickness. Moderate global hypokinesis present. Mildly reduced systolic function with a visually estimated EF of 40 - 45%. EF by 2D Heck biplane is 43%. There is grade 3 diastolic dysfunction and restrictive diastolic dysfunction. Elevated left ventricular filling pressure. ?Right?Ventricle: Right ventricle is dilated. Reduced systolic function. ?Left?Atrium: Left atrium is severely dilated. Left atrium volume index is 73.5 mL/m2. ?Right?Atrium: Right atrium is dilated. ?Tricuspid?Valve: Trace transvalvular regurgitation. Insufficient tricuspid regurgitation jet to estimate RVSP . ?IVC/SVC: IVC diameter is greater than 21 mm and decreases less than 50% during inspiration; therefore the estimated right atrial pressure is elevated (~15 mmHg). ?Pericardium: Trivial pericardial effusion present. No indication of cardiac tamponade. Lan Soares MDLeft VentricleLeft ventricle is mildly dilated. Dilated by LV volume index calculation. Normal wall thickness. Moderate global hypokinesis present. Mildly reduced systolic function with a visually estimated EF of 40 - 45%. EF by 2D Heck biplane is 43%. There is grade 3 diastolic dysfunction and restrictive diastolic dysfunction. Elevated left ventricular filling pressure.Right VentricleRight ventricle is dilated. Reduced systolic function.Left AtriumLeft atrium is severely dilated. Left atrium volume index is 73.5 mL/m2.Right AtriumRight atrium is dilated.IVC/SVCIVC diameter is greater than 21 mm and decreases less than 50% during inspiration; therefore the estimated right atrial pressure is elevated (~15 mmHg).Mitral ValveMitral valve structure is normal. Mild transvalvular regurgitation. No stenosis.Tricuspid ValveTricuspid valve structure is normal. Trace transvalvular regurgitation. Insufficient tricuspid regurgitation jet to estimate RVSP . No stenosis.Aortic ValveTricuspid. Normal excursion of the aortic valve leaflets. Mild transvalvular regurgitation. No evidence of aortic stenosis.Pulmonic ValveNot well visualized. Trace transvalvular regurgitation.Ascendi ng AortaNormal sized aortic root.PericardiumTrivi al pericardial effusion present. No indication of cardiac tamponade.Study DetailsStudy quality was good. A complete echocardiogram was performed using 2D, color flow Doppler and spectral Doppler. The apical, parasternal, subcostal and suprasternal views were obtained. Patient exhibited sinus rhythm. [facility] 00:47:06* Test Item Value Reference Range Interpretation Comme nts Systolic BP (test code = 4666540464) 147 mmHg Diastolic BP (test code = 2045212743) 67 mmHg Height (test code = 6122028576) 71 in Weight (test code = 9439841086) 180 lbs Heart Rate (test code = 4216505811) 54 bpm BSA (test code = 2339297898) 2.02 m2 Ao root diam (test code = 2573389711) 3.20 cm Aortic root (test code = 3567820318) 3.2 cm Ao root annulus (test code = 5149805480) 3.2 cm LA size (test code = 3849722242) 5.7 cm LVOT diameter (test code = 0648797739) 2.30 cm LVOT area (test code = 6282199444) 4.20 cm2 LVIDD (test code = 3404185168) 5.00 cm Left Ventricular End Diastolic Volume by Teichholz Method (test code = 6076116) 120.2 mL IVS (test code = 6721353313) 0.75 cm Interventricular Septum Diastolic Thickness by 2D (test code = 9441757) 0.75 cm LVPWD (test code = 9219935107) 0.91 cm PW (test code = 5750750590) 0.91 cm 0.6-1.1 EF(Teich) (test code = 7569110211) 50.80 % LVIDS (test code = 0491589570) 3.70 cm Left Ventricular End Systolic Volume by Teichholz Method (test code = 7779053) 59.2 mL FS (test code = 7817981320) 26 % EF - 2D (test code = 14066258) 50.80 % MV Prop V (test code = 3551143996) 50.60 cm/s MV Peak E Yonathan (test code = 2115340323) 122.5 cm/s MV Peak A Yonathan (test code = 5200944432) 20.8 cm/s E/A ratio (test code = 5984697617) 5.90 ratio E wave decelartion time (test code = 0835224704) 0.18 s LAV(MOD-sp4) (test code = 6787324736) 139.50 mL Aortic valve mean velocity (test code = 3691594477) 97.8 cm/s Ao peak yonathan (test code = 8405013383) 153.1 cm/s Ao VTI (test code = 7169097633) 32.0 cm Ao max PG (test code = 4515720394) 9.40 mm[Hg] AV peak gradient (test code = 3835669760) 9.4 mmHg AV mean gradient (test code = 5877866039) 4.3 mmHg LVOT stroke volume (test code = 0722996198) 82.80 cm3 LVOT peak yonathan (test code = 5972999385) 90.0 cm/s LVOT mn grad (test code = 6221984354) 1.6 mmHg AV LVOT peak gradient (test code = 9771662766) 3.2 mmHg LVOT peak VTI (test code = 0047461562) 19.9 cm AV area by cont VTI (test code = 6290476836) 2.6 cm2 AV area peak yonathan (test code = 2218283912) 2.5 cm2 LV V1 mean (test code = 1590986066) 57.90 cm/s AV valve area (test code = 8204227731) 2.60 cm2 Tapse (test code = 9288566932) 1.42 cm LA Volume Index (BP) (test code = 1030649994) 73.5 mL/m2 LA volume (BP) (test code = 7730508653) 148.2 mL LAV(MOD-sp2) (test code = 7003899155) 129.60 mL A4C EF (test code = 2403582273) 47.30 % EF(sp4-el) (test code = 0587730967) 47.00 % SV(MOD-sp4) (test code = 5611352757) 72.20 mL SV(sp4-el) (test code = 5816548313) 70.00 mL LV Diastolic Volume (BP) (test code = 4280853856) 162.6 mL A2C EF (test code = 8459364322) 38.30 % EF(MOD-bp) (test code = 4166033039) 42.50 % EF(sp2-el) (test code = 1758062592) 43.20 % LV Systolic Volume (BP) (test code = 3813922375) 93.5 mL SV(MOD-bp) (test code = 8394232565) 69.10 mL SV(MOD-sp2) (test code = 1991278805) 65.90 mL EF (test code = 0412364465) 43 Left Ventricular Stroke Volume by 2-D Biplane-MOD (test code = 3822001) 69.1 mL LV Diastolic Volume Index (BP) (test code = 5614800062) 97.6 mL/m2 LV Systolic Volume Index (BP) (test code = 4689300650) 61.5 mL/m2 Radiology Study observation (narrative) (test code = 18430-2) LONDON (test code = LONDON) ?Left?Ventricle: Left ventricle is mildly dilated. Dilated by LV volume index calculation. ?Normal wall thickness. Moderate global hypokinesis present. Mildly reduced systolic function with a visually estimated EF of 40 - 45%. EF by 2D Heck biplane is 43%. There is grade 3 diastolic dysfunction and restrictive diastolic dysfunction. Elevated left ventricular filling pressure. ?Right?Ventricle: Right ventricle is dilated. Reduced systolic function. ?Left?Atrium: Left atrium is severely dilated. Left atrium volume index is 73.5 mL/m2. ?Right?Atrium: Right atrium is dilated. ?Tricuspid?Valve: Trace transvalvular regurgitation. Insufficient tricuspid regurgitation jet to estimate RVSP . ?IVC/SVC: IVC diameter is greater than 21 mm and decreases less than 50% during inspiration; therefore the estimated right atrial pressure is elevated (~15 mmHg). ?Pericardium: Trivial pericardial effusion present. No indication of cardiac tamponade. Lan Soares MDLeft VentricleLeft ventricle is mildly dilated. Dilated by LV volume index calculation. Normal wall thickness. Moderate global hypokinesis present. Mildly reduced systolic function with a visually estimated EF of 40 - 45%. EF by 2D Heck biplane is 43%. There is grade 3 diastolic dysfunction and restrictive diastolic dysfunction. Elevated left ventricular filling pressure.Right VentricleRight ventricle is dilated. Reduced systolic function.Left AtriumLeft atrium is severely dilated. Left atrium volume index is 73.5 mL/m2.Right AtriumRight atrium is dilated.IVC/SVCIVC diameter is greater than 21 mm and decreases less than 50% during inspiration; therefore the estimated right atrial pressure is elevated (~15 mmHg).Mitral ValveMitral valve structure is normal. Mild transvalvular regurgitation. No stenosis.Tricuspid ValveTricuspid valve structure is normal. Trace transvalvular regurgitation. Insufficient tricuspid regurgitation jet to estimate RVSP . No stenosis.Aortic ValveTricuspid. Normal excursion of the aortic valve leaflets. Mild transvalvular regurgitation. No evidence of aortic stenosis.Pulmonic ValveNot well visualized. Trace transvalvular regurgitation.Ascendi ng AortaNormal sized aortic root.PericardiumTrivi al pericardial effusion present. No indication of cardiac tamponade.Study DetailsStudy quality was good. A complete echocardiogram was performed using 2D, color flow Doppler and spectral Doppler. The apical, parasternal, subcostal and suprasternal views were obtained. Patient exhibited sinus rhythm. [facility] 00:47:06* Test Item Value Reference Range Interpretation Comme nts Systolic BP (test code = 3960233076) 147 mmHg Diastolic BP (test code = 7718838586) 67 mmHg Height (test code = 1650403807) 71 in Weight (test code = 4887408070) 180 lbs Heart Rate (test code = 7619924655) 54 bpm BSA (test code = 2611895644) 2.02 m2 Ao root diam (test code = 5377368797) 3.20 cm Aortic root (test code = 3800673070) 3.2 cm Ao root annulus (test code = 5617156478) 3.2 cm LA size (test code = 8525536296) 5.7 cm LVOT diameter (test code = 9095669430) 2.30 cm LVOT area (test code = 9729124778) 4.20 cm2 LVIDD (test code = 4533431332) 5.00 cm Left Ventricular End Diastolic Volume by Teichholz Method (test code = 9590867) 120.2 mL IVS (test code = 3087026510) 0.75 cm Interventricular Septum Diastolic Thickness by 2D (test code = 2926187) 0.75 cm LVPWD (test code = 6798180470) 0.91 cm PW (test code = 3066056778) 0.91 cm 0.6-1.1 EF(Teich) (test code = 7781106491) 50.80 % LVIDS (test code = 7841588283) 3.70 cm Left Ventricular End Systolic Volume by Teichholz Method (test code = 5811894) 59.2 mL FS (test code = 4650379528) 26 % EF - 2D (test code = 02444575) 50.80 % MV Prop V (test code = 4222377796) 50.60 cm/s MV Peak E Yonathan (test code = 5332643855) 122.5 cm/s MV Peak A Yonathan (test code = 0748322180) 20.8 cm/s E/A ratio (test code = 5450636156) 5.90 ratio E wave decelartion time (test code = 6092054761) 0.18 s LAV(MOD-sp4) (test code = 1162669334) 139.50 mL Aortic valve mean velocity (test code = 6494482611) 97.8 cm/s Ao peak yonathan (test code = 8671419692) 153.1 cm/s Ao VTI (test code = 3223598577) 32.0 cm Ao max PG (test code = 8063135432) 9.40 mm[Hg] AV peak gradient (test code = 3894725143) 9.4 mmHg AV mean gradient (test code = 0128764771) 4.3 mmHg LVOT stroke volume (test code = 6672709782) 82.80 cm3 LVOT peak yonathan (test code = 0298347662) 90.0 cm/s LVOT mn grad (test code = 0316593807) 1.6 mmHg AV LVOT peak gradient (test code = 6986065847) 3.2 mmHg LVOT peak VTI (test code = 4762179326) 19.9 cm AV area by cont VTI (test code = 6917838005) 2.6 cm2 AV area peak yonathan (test code = 5275363746) 2.5 cm2 LV V1 mean (test code = 6774381439) 57.90 cm/s AV valve area (test code = 6728256746) 2.60 cm2 Tapse (test code = 2284539938) 1.42 cm LA Volume Index (BP) (test code = 5486912325) 73.5 mL/m2 LA volume (BP) (test code = 3858118247) 148.2 mL LAV(MOD-sp2) (test code = 3129348978) 129.60 mL A4C EF (test code = 5931654522) 47.30 % EF(sp4-el) (test code = 5007931362) 47.00 % SV(MOD-sp4) (test code = 4859946632) 72.20 mL SV(sp4-el) (test code = 1228365033) 70.00 mL LV Diastolic Volume (BP) (test code = 8570498419) 162.6 mL A2C EF (test code = 6673142051) 38.30 % EF(MOD-bp) (test code = 1297727858) 42.50 % EF(sp2-el) (test code = 7160935749) 43.20 % LV Systolic Volume (BP) (test code = 7844283826) 93.5 mL SV(MOD-bp) (test code = 1230710223) 69.10 mL SV(MOD-sp2) (test code = 4798257454) 65.90 mL EF (test code = 9600902812) 43 Left Ventricular Stroke Volume by 2-D Biplane-MOD (test code = 0308893) 69.1 mL LV Diastolic Volume Index (BP) (test code = 1528678269) 97.6 mL/m2 LV Systolic Volume Index (BP) (test code = 8732814816) 61.5 mL/m2 Radiology Study observation (narrative) (test code = 05631-0) LONDON (test code = LONDON) ?Left?Ventricle: Left ventricle is mildly dilated. Dilated by LV volume index calculation. ?Normal wall thickness. Moderate global hypokinesis present. Mildly reduced systolic function with a visually estimated EF of 40 - 45%. EF by 2D Heck biplane is 43%. There is grade 3 diastolic dysfunction and restrictive diastolic dysfunction. Elevated left ventricular filling pressure. ?Right?Ventricle: Right ventricle is dilated. Reduced systolic function. ?Left?Atrium: Left atrium is severely dilated. Left atrium volume index is 73.5 mL/m2. ?Right?Atrium: Right atrium is dilated. ?Tricuspid?Valve: Trace transvalvular regurgitation. Insufficient tricuspid regurgitation jet to estimate RVSP . ?IVC/SVC: IVC diameter is greater than 21 mm and decreases less than 50% during inspiration; therefore the estimated right atrial pressure is elevated (~15 mmHg). ?Pericardium: Trivial pericardial effusion present. No indication of cardiac tamponade. Lan Soares MDLeft VentricleLeft ventricle is mildly dilated. Dilated by LV volume index calculation. Normal wall thickness. Moderate global hypokinesis present. Mildly reduced systolic function with a visually estimated EF of 40 - 45%. EF by 2D Heck biplane is 43%. There is grade 3 diastolic dysfunction and restrictive diastolic dysfunction. Elevated left ventricular filling pressure.Right VentricleRight ventricle is dilated. Reduced systolic function.Left AtriumLeft atrium is severely dilated. Left atrium volume index is 73.5 mL/m2.Right AtriumRight atrium is dilated.IVC/SVCIVC diameter is greater than 21 mm and decreases less than 50% during inspiration; therefore the estimated right atrial pressure is elevated (~15 mmHg).Mitral ValveMitral valve structure is normal. Mild transvalvular regurgitation. No stenosis.Tricuspid ValveTricuspid valve structure is normal. Trace transvalvular regurgitation. Insufficient tricuspid regurgitation jet to estimate RVSP . No stenosis.Aortic ValveTricuspid. Normal excursion of the aortic valve leaflets. Mild transvalvular regurgitation. No evidence of aortic stenosis.Pulmonic ValveNot well visualized. Trace transvalvular regurgitation.Ascendi ng AortaNormal sized aortic root.PericardiumTrivi al pericardial effusion present. No indication of cardiac tamponade.Study DetailsStudy quality was good. A complete echocardiogram was performed using 2D, color flow Doppler and spectral Doppler. The apical, parasternal, subcostal and suprasternal views were obtained. Patient exhibited sinus rhythm. [facility] [id number] 14:32:22* Test Item Value Reference Range Interpretation Comme nts TROPONIN I (test code = 7485383791) 0.031 ng/mL <=0.034 LONDON (test code = LONDON) Reference (Normal) Range (defined by the 99th percentile reference limit): <= 0.034 ng/mL Note: Cardiac troponin begins to rise 3-4 hours after the onset of ischemia. Repeat in 4-6 hours if the sample was drawn within 3-4 hours of the onset of the symptom and found normal. Diagnosis of myocardial injury is made with acute changes in cTn concentrations with at least one serial sample above the 99th percentile upper reference limit (URL), taken together with the patient's clinical presentation. Biotin has been reported to cause a negative bias, interpret results relative to patient's use of biotin. Lab Interpretation (test code = 62645-6) Normal [facility] [id number] 14:32:22* Test Item Value Reference Range Interpretation Comme nts TROPONIN I (test code = 0889744653) 0.031 ng/mL <=0.034 LONDON (test code = LONDON) Reference (Normal) Range (defined by the 99th percentile reference limit): <= 0.034 ng/mL Note: Cardiac troponin begins to rise 3-4 hours after the onset of ischemia. Repeat in 4-6 hours if the sample was drawn within 3-4 hours of the onset of the symptom and found normal. Diagnosis of myocardial injury is made with acute changes in cTn concentrations with at least one serial sample above the 99th percentile upper reference limit (URL), taken together with the patient's clinical presentation. Biotin has been reported to cause a negative bias, interpret results relative to patient's use of biotin. Lab Interpretation (test code = 20025-3) Normal [facility] [id number] 14:32:22* Test Item Value Reference Range Interpretation Comme nts TROPONIN I (test code = 3888851115) 0.031 ng/mL <=0.034 LONDON (test code = LONDON) Reference (Normal) Range (defined by the 99th percentile reference limit): <= 0.034 ng/mL Note: Cardiac troponin begins to rise 3-4 hours after the onset of ischemia. Repeat in 4-6 hours if the sample was drawn within 3-4 hours of the onset of the symptom and found normal. Diagnosis of myocardial injury is made with acute changes in cTn concentrations with at least one serial sample above the 99th percentile upper reference limit (URL), taken together with the patient's clinical presentation. Biotin has been reported to cause a negative bias, interpret results relative to patient's use of biotin. Lab Interpretation (test code = 80599-0) [facility] [id number] 18:01:09 Ultrasound of the right upper quadrant History: ?Elevated T bili , right upper quadrant pain Prior:None Technique: ?Multiple sonographic images of the abdomen were obtained. Findings: There is a mild heterogeneous echotexture to the liver. ?There is someminimal nodularity to its surface contour. Liver measures 17.8 cm inoverall length. No intrahepatic biliary dilatation is seen. The gallbladderde monstrates contraction. ?No pericholecystic fluid. The bladder wallmeasures 4 mm in thickness likely secondary to contraction. ?The commonbile duct measures 5.1 mm and is normal. The portal vein demonstratesnormal flow. The main portal vein velocity measures 1.3 cm/sec. Main portalvein diameter is 1.3 cm. The visualized head and body of the pancreas are normal. There are portionsof the pancreas not seen on this exam. ? The spleen measures 10.6 centimeters in length. The visualized aorta demonstrates no aneurysm.[facility] ABDOMEN [id number] 18:01:09Ultrasound of the right upper quadrant History: ?Elevated T bili , right upper quadrant pain Prior:None Technique: ?Multiple sonographic images of the abdomen were obtained. Findings: There is a mild heterogeneous echotexture to the liver. ?There is someminimal nodularity to its surface contour. Liver measures 17.8 cm inoverall length. No intrahepatic biliary dilatation is seen. The gallbladderdemonstrates contraction. ?No pericholecystic fluid. The bladder wallmeasures 4 mm in thickness likely secondary to contraction. ?The commonbile duct measures 5.1 mm and is normal. The portal vein demonstratesnormal flow. The main portal vein velocity measures 1.3 cm/sec. Main portalvein diameter is 1.3 cm. The visualized head and body of the pancreas are normal. There are portionsof the pancreas not seen on this exam. ? The spleen measures 10.6 centimeters in length. The visualized aorta demonstrates no aneurysm.[facility] ABDOMEN [id number] 18:01:09Ultrasound of the right upper quadrant History: ?Elevated T bili , right upper quadrant pain Prior:None Technique: ?Multiple sonographic images of the abdomen were obtained. Findings: There is a mild heterogeneous echotexture to the liver. ?There is someminimal nodularity to its surface contour. Liver measures 17.8 cm inoverall length. No intrahepatic biliary dilatation is seen. The gallbladderdemonstrates contraction. ?No pericholecystic fluid. The bladder wallmeasures 4 mm in thickness likely secondary to contraction. ?The commonbile duct measures 5.1 mm and is normal. The portal vein demonstratesnormal flow. The main portal vein velocity measures 1.3 cm/sec. Main portalvein diameter is 1.3 cm. The visualized head and body of the pancreas are normal. There are portionsof the pancreas not seen on this exam. ? The spleen measures 10.6 centimeters in length. The visualized aorta demonstrates no aneurysm.[facility] [id number] 15:30:48* Test Item Value Reference Range Interpretation Comme nts LACTIC ACID (test code = 1354097964) 1.55 mmol/L 0.50-2.20 Lab Interpretation (test cod e = 02116-3) [facility] [id number] 15:30:48* Test Item Value Reference Range Interpretation Comme nts LACTIC ACID (test code = 4279459763) 1.55 mmol/L 0.50-2.20 Lab Interpretation (test cod e = 03283-4) [facility] [id number] 15:30:48* Test Item Value Reference Range Interpretation Comme nts LACTIC ACID (test code = 8490521820) 1.55 mmol/L 0.50-2.20 Lab Interpretation (test cod e = 26246-5) [facility]2024-01-13 14:34:06* Test Item Value Reference Range Interpretation Comme nts HGB A1C (test code = 4548-4) 6.5 % 4.0-5.7 H LONDON (test code = LONDON) Reference RangesNormal: <5.7%Prediabetes: 5.7 - 6.4%Diabetes: > 6.5% Lab Interpretation (test code = 66446-8) [facility]normal [facility]2024-01-13 14:34:06* Test Item Value Reference Range Interpretation Comme nts HGB A1C (test code = 4548-4) 6.5 % 4.0-5.7 H LONDON (test code = LONDON) Reference RangesNormal: <5.7%Prediabetes: 5.7 - 6.4%Diabetes: > 6.5% Lab Interpretation (test code = 07786-0) [facility]normal [facility]2024-01-13 14:34:06* Test Item Value Reference Range Interpretation Comme nts HGB A1C (test code = 4548-4) 6.5 % 4.0-5.7 H LONDON (test code = LONDON) Reference RangesNormal: <5.7%Prediabetes: 5.7 - 6.4%Diabetes: > 6.5% Lab Interpretation (test code = 17156-2) [facility]normal [facility] (38525)(Total Cholesterol, Triglycerides, HDL)2024-01-13 14:22:24* Test Item Value Reference Range Interpretation Comme nts CHOL (test code = 2768684303) 127 mg/dL 120-200 HDL (test code = 9733807823) 58 mg/dL >=40 HDLC RATIO (test code = 3510712530) 2.2 <=5.0 TRIG (test code = 0778697526) 68 mg/dL 30-170 LDL CHOL (test code = 31422-2) 55 mg/dL <=160 VLDL (test code = 5336613780) 14 mg/dL 5-60 Lab Interpretation (test cod e = 65585-5) [facility] (55106)(Total Cholesterol, Triglycerides, HDL)2024-01-13 14:22:24* Test Item Value Reference Range Interpretation Comme nts CHOL (test code = 3732885707) 127 mg/dL 120-200 HDL (test code = 2977802687) 58 mg/dL >=40 HDLC RATIO (test code = 6021830836) 2.2 <=5.0 TRIG (test code = 6687291181) 68 mg/dL 30-170 LDL CHOL (test code = 89734-9) 55 mg/dL <=160 VLDL (test code = 2869801231) 14 mg/dL 5-60 Lab Interpretation (test cod e = 29942-6) [facility] (65247)(Total Cholesterol, Triglycerides, HDL)2024-01-13 14:22:24* Test Item Value Reference Range Interpretation Comme nts CHOL (test code = 2013410792) 127 mg/dL 120-200 HDL (test code = 0967537539) 58 mg/dL >=40 HDLC RATIO (test code = 2756733509) 2.2 <=5.0 TRIG (test code = 6838817090) 68 mg/dL 30-170 LDL CHOL (test code = 60767-1) 55 mg/dL <=160 VLDL (test code = 4384833363) 14 mg/dL 5-60 Lab Interpretation (test cod e = 00752-0) [facility] [id number] 10:20:41Study: Single view chest. Ordering Physician: URIAH WOODWARD Date: 01/13/2024 4:15 AM History:Shortness of breath. COMPARISON: None. Findings: Single frontal view chest demonstrates mild cardiomegaly.Pulmonary vascular congestion is present. No definite infiltrate, pleuraleffusion or pneumothorax is present. No acute osseous abnormality isdemonstrated.[facility] [id number] 10:20:41Study: Single view chest. Ordering Physician: URIAH WOODWARD Date: 01/13/2024 4:15 AM History:Shortness of breath. COMPARISON: None. Findings: Single frontal view chest demonstrates mild cardiomegaly.Pulmonary vascular congestion is present. No definite infiltrate, pleuraleffusion or pneumothorax is present. No acute osseous abnormality isdemonstrated.[facility] [id number] 10:20:41Study: Single view chest. Ordering Physician: URIAH WOODWARD Date: 01/13/2024 4:15 AM History:Marija rtness of breath. COMPARISON: None. Findings: Single frontal view chest demonstrates mild cardiomegaly.Pulmonary vascular congestion is present. No definite infiltrate, pleuraleffusion or pneumothorax is present. No acute osseous abnormality isdemonstrated.[facility] (NA, K, CL, CO2, GLUCOSE, BUN, CREATININE, CA)2024-01-13 10:18:59* Test Item Value Reference Range Interpretation Comme nts NA (test code = 9370132316) 119 mmol/L 135-145 LL K (test code = 3894683937) 4.9 mmol/L 3.5-5.0 CL (test code = 4398024371) 86 mmol/L 98-108 L CO2 TOTAL (test code = 6963068413) 24 mmol/L 23-31 AGAP (test code = 4216593088) 9 2-16 BUN (test code = 4796630055) 15 mg/dL 7-23 GLUCOSE (test code = 4601425581) 93 mg/dL 70-110 CREATININE (test code = 2160-0) 0.64 mg/dL 0.60-1.25 CALCIUM (test code = 3115578957) 9.0 mg/dL 8.6-10.6 eGFR (test code = 63175-4) 106.4 mL/min/1.73m2 CKD-EPI eGFR (2020). Assuming creatinine has been stable day-to-day for at least three months, the eGFR indicates Category G1 (>= 90 mL/min/1.73 m2) Lab Interpretation (test code = 75723-0) Abnormal [facility] METABOLIC PANEL (NA, K, CL, CO2, GLUCOSE, BUN, CREATININE, CA)2024-01-13 10:18:59* Test Item Value Reference Range Interpretation Comme nts NA (test code = 7936374006) 119 mmol/L 135-145 LL K (test code = 2185444368) 4.9 mmol/L 3.5-5.0 CL (test code = 9606297336) 86 mmol/L 98-108 L CO2 TOTAL (test code = 0461880541) 24 mmol/L 23-31 AGAP (test code = 2098855979) 9 2-16 BUN (test code = 5773390722) 15 mg/dL 7-23 GLUCOSE (test code = 0913119274) 93 mg/dL 70-110 CREATININE (test code = 2160-0) 0.64 mg/dL 0.60-1.25 CALCIUM (test code = 9915470762) 9.0 mg/dL 8.6-10.6 eGFR (test code = 62938-7) 106.4 mL/min/1.73m2 CKD-EPI eGFR (2020). Assuming creatinine has been stable day-to-day for at least three months, the eGFR indicates Category G1 (>= 90 mL/min/1.73 m2) Lab Interpretation (test code = 39670-4) Abnormal [facility] METABOLIC PANEL (NA, K, CL, CO2, GLUCOSE, BUN, CREATININE, CA)2024-01-13 10:18:59* Test Item Value Reference Range Interpretation Comme nts NA (test code = 3625936359) 119 mmol/L 135-145 LL K (test code = 6546422062) 4.9 mmol/L 3.5-5.0 CL (test code = 5039307708) 86 mmol/L 98-108 L CO2 TOTAL (test code = 9680397631) 24 mmol/L 23-31 AGAP (test code = 2215590194) 9 2-16 BUN (test code = 7213578947) 15 mg/dL 7-23 GLUCOSE (test code = 3354208417) 93 mg/dL 70-110 CREATININE (test code = 2160-0) 0.64 mg/dL 0.60-1.25 CALCIUM (test code = 0033125242) 9.0 mg/dL 8.6-10.6 eGFR (test code = 81980-3) 106.4 mL/min/1.73m2 CKD-EPI eGFR (2020). Assuming creatinine has been stable day-to-day for at least three months, the eGFR indicates Category G1 (>= 90 mL/min/1.73 m2) Lab Interpretation (test code = 70219-9) Abnormal [facility] WITH [id number] 09:49:30* Test Item Value Reference Range Interpretation Comme nts WBC (test code = 6690-2) 3.78 4.20-10.70 L RBC (test code = 789-8) 4.02 4.26-5.52 L HGB (test code = 718-7) 13.5 g/dL 12.2-16.4 HCT (test code = 4544-3) 37.7 % 38.4-49.3 L MCV (test code = 787-2) 93.8 fL 81.7-95.6 MCH (test code = 785-6) 33.6 pg 26.1-32.7 H MCHC (test code = 786-4) 35.8 g/dL 31.2-35.0 H RDW-SD (test code = 49497-5) 42.4 fL 38.5-51.6 RDW-CV (test code = 788-0) 12.3 % 12.1-15.4 PLT (test code = 777-3) 113 150-328 L MPV (test code = 10728-5) 10.3 fL 9.8-13.0 IPF % (test code = 6711451573) 5.7 % 1.2-10.7 Platelet count measured by fluorescence method. NRBC/100 WBC (test code = 4453884881) 0.0 0.0-10.0 NRBC x10^3 (test code = 4099829848) See_Comment [Automated Pocketherneta ge] The system which generated this result transmitted reference range: 10*3/?L. The reference range was not used to interpret this result as normal/abnormal. SEG % (test code = 43371-4) 31 % 33-76 L BAND % (test code = 42706-7) 14 % 0-1 H LYMPH % (test code = 26170-8) 39 % 14-54 REACT LYMPH % (test code = 4667866391) 3 % MONO % (test code = 94410-2) 12 % 0-4 H EOS % (test code = 47549-5) 1 % 0-3 ANC (test code = 753-4) 1.70 10*3/uL 1.99-6.95 L Lab Interpretation (test code = 12696-4) Abnormal [facility] WITH [id number] 09:49:30* Test Item Value Reference Range Interpretation Comme nts WBC (test code = 6690-2) 3.78 4.20-10.70 L RBC (test code = 789-8) 4.02 4.26-5.52 L HGB (test code = 718-7) 13.5 g/dL 12.2-16.4 HCT (test code = 4544-3) 37.7 % 38.4-49.3 L MCV (test code = 787-2) 93.8 fL 81.7-95.6 MCH (test code = 785-6) 33.6 pg 26.1-32.7 H MCHC (test code = 786-4) 35.8 g/dL 31.2-35.0 H RDW-SD (test code = 38317-8) 42.4 fL 38.5-51.6 RDW-CV (test code = 788-0) 12.3 % 12.1-15.4 PLT (test code = 777-3) 113 150-328 L MPV (test code = 58332-7) 10.3 fL 9.8-13.0 IPF % (test code = 5964162401) 5.7 % 1.2-10.7 Platelet count measured by fluorescence method. NRBC/100 WBC (test code = 6293261641) 0.0 0.0-10.0 NRBC x10^3 (test code = 1790641325) See_Comment [Automated messa ge] The system which generated this result transmitted reference range: 10*3/?L. The reference range was not used to interpret this result as normal/abnormal. SEG % (test code = 66941-3) 31 % 33-76 L BAND % (test code = 63725-1) 14 % 0-1 H LYMPH % (test code = 07238-2) 39 % 14-54 REACT LYMPH % (test code = 9070186327) 3 % MONO % (test code = 60929-3) 12 % 0-4 H EOS % (test code = 18534-8) 1 % 0-3 ANC (test code = 753-4) 1.70 10*3/uL 1.99-6.95 L Lab Interpretation (test code = 38232-7) Abnormal [facility] WITH [id number] 09:49:30* Test Item Value Reference Range Interpretation Comme nts WBC (test code = 6690-2) 3.78 4.20-10.70 L RBC (test code = 789-8) 4.02 4.26-5.52 L HGB (test code = 718-7) 13.5 g/dL 12.2-16.4 HCT (test code = 4544-3) 37.7 % 38.4-49.3 L MCV (test code = 787-2) 93.8 fL 81.7-95.6 MCH (test code = 785-6) 33.6 pg 26.1-32.7 H MCHC (test code = 786-4) 35.8 g/dL 31.2-35.0 H RDW-SD (test code = 86587-5) 42.4 fL 38.5-51.6 RDW-CV (test code = 788-0) 12.3 % 12.1-15.4 PLT (test code = 777-3) 113 150-328 L MPV (test code = 66472-5) 10.3 fL 9.8-13.0 IPF % (test code = 4180494400) 5.7 % 1.2-10.7 Platelet count measured by fluorescence method. NRBC/100 WBC (test code = 6426394799) 0.0 0.0-10.0 NRBC x10^3 (test code = 7248128651) See_Comment [Automated Pocketherneta ge] The system which generated this result transmitted reference range: 10*3/?L. The reference range was not used to interpret this result as normal/abnormal. SEG % (test code = 90032-6) 31 % 33-76 L BAND % (test code = 37504-7) 14 % 0-1 H LYMPH % (test code = 30752-2) 39 % 14-54 REACT LYMPH % (test code = 6503658374) 3 % MONO % (test code = 06336-0) 12 % 0-4 H EOS % (test code = 26519-8) 1 % 0-3 ANC (test code = 753-4) 1.70 10*3/uL 1.99-6.95 L Lab Interpretation (test code = 89704-5) Abnormal [facility] [id number] 09:34:06* Test Item Value Reference Range Interpretation Comme nts TROPONIN I (test code = 0281431467) 0.038 ng/mL <=0.034 H LONDON (test code = LONDON) Reference (Normal) Range (defined by the 99th percentile reference limit): <= 0.034 ng/mL Note: Cardiac troponin begins to rise 3-4 hours after the onset of ischemia. Repeat in 4-6 hours if the sample was drawn within 3-4 hours of the onset of the symptom and found normal. Diagnosis of myocardial injury is made with acute changes in cTn concentrations with at least one serial sample above the 99th percentile upper reference limit (URL), taken together with the patient's clinical presentation. Biotin has been reported to cause a negative bias, interpret results relative to patient's use of biotin. Lab Interpretation (test code = 70744-0) Abnormal [facility] [id number] 09:34:06* Test Item Value Reference Range Interpretation Comme nts TROPONIN I (test code = 2012594768) 0.038 ng/mL <=0.034 H LONDON (test code = LONDON) Reference (Normal) Range (defined by the 99th percentile reference limit): <= 0.034 ng/mL Note: Cardiac troponin begins to rise 3-4 hours after the onset of ischemia. Repeat in 4-6 hours if the sample was drawn within 3-4 hours of the onset of the symptom and found normal. Diagnosis of myocardial injury is made with acute changes in cTn concentrations with at least one serial sample above the 99th percentile upper reference limit (URL), taken together with the patient's clinical presentation. Biotin has been reported to cause a negative bias, interpret results relative to patient's use of biotin. Lab Interpretation (test code = 56767-2) [facility] [id number] 09:34:06* Test Item Value Reference Range Interpretation Comme nts TROPONIN I (test code = 2547436394) 0.038 ng/mL <=0.034 H LONDON (test code = LONDON) Reference (Normal) Range (defined by the 99th percentile reference limit): <= 0.034 ng/mL Note: Cardiac troponin begins to rise 3-4 hours after the onset of ischemia. Repeat in 4-6 hours if the sample was drawn within 3-4 hours of the onset of the symptom and found normal. Diagnosis of myocardial injury is made with acute changes in cTn concentrations with at least one serial sample above the 99th percentile upper reference limit (URL), taken together with the patient's clinical presentation. Biotin has been reported to cause a negative bias, interpret results relative to patient's use of biotin. Lab Interpretation (test code = 03816-1) [facility]OL[facility] (52976)2024-01-13 09:34:01* Test Item Value Reference Range Interpretation Comme nts NA (test code = 4388600304) 117 mmol/L 135-145 LL K (test code = 7366074531) 4.7 mmol/L 3.5-5.0 CL (test code = 9851050228) 88 mmol/L 98-108 L CO2 TOTAL (test code = 6697586154) 23 mmol/L 23-31 AGAP (test code = 7114322940) 6 2-16 BUN (test code = 7886325793) 15 mg/dL 7-23 GLUCOSE (test code = 5724256365) 90 mg/dL 70-110 CREATININE (test code = 2160-0) 0.64 mg/dL 0.60-1.25 TOTAL BILI (test code = 9634052410) 2.2 mg/dL 0.1-1.1 H CALCIUM (test code = 5787918027) 8.6 mg/dL 8.6-10.6 T PROTEIN (test code = 2471887911) 7.6 g/dL 6.3-8.2 ALBUMIN (test code = 6761349480) 4.0 g/dL 3.5-5.0 ALK PHOS (test code = 7186695010) 239 U/L 34-122 H ALTv (test code = 1742-6) 39 U/L 5-50 AST(SGOT) (test code = 1155093703) 81 U/L 13-40 H eGFR (test code = 16761-1) 106.4 mL/min/1.73m2 CKD-EPI eGFR (2020). Assuming creatinine has been stable day-to-day for at least three months, the eGFR indicates Category G1 (>= 90 mL/min/1.73 m2) Lab Interpretation (test code = 40053-6) [facility] (41113)2024-01-13 09:34:01* Test Item Value Reference Range Interpretation Comme nts NA (test code = 0638653387) 117 mmol/L 135-145 LL K (test code = 2362720441) 4.7 mmol/L 3.5-5.0 CL (test code = 8075175962) 88 mmol/L 98-108 L CO2 TOTAL (test code = 9061697459) 23 mmol/L 23-31 AGAP (test code = 7886085040) 6 2-16 BUN (test code = 3664520111) 15 mg/dL 7-23 GLUCOSE (test code = 9567833472) 90 mg/dL 70-110 CREATININE (test code = 2160-0) 0.64 mg/dL 0.60-1.25 TOTAL BILI (test code = 9335164889) 2.2 mg/dL 0.1-1.1 H CALCIUM (test code = 3099733170) 8.6 mg/dL 8.6-10.6 T PROTEIN (test code = 0132093209) 7.6 g/dL 6.3-8.2 ALBUMIN (test code = 1255328276) 4.0 g/dL 3.5-5.0 ALK PHOS (test code = 4486748185) 239 U/L 34-122 H ALTv (test code = 1742-6) 39 U/L 5-50 AST(SGOT) (test code = 6403696888) 81 U/L 13-40 H eGFR (test code = 08326-9) 106.4 mL/min/1.73m2 CKD-EPI eGFR (2020). Assuming creatinine has been stable day-to-day for at least three months, the eGFR indicates Category G1 (>= 90 mL/min/1.73 m2) Lab Interpretation (test code = 75355-9) [facility] (39725)2024-01-13 09:34:01* Test Item Value Reference Range Interpretation Comme nts NA (test code = 4485131228) 117 mmol/L 135-145 LL K (test code = 1137851637) 4.7 mmol/L 3.5-5.0 CL (test code = 6766101180) 88 mmol/L 98-108 L CO2 TOTAL (test code = 0901564898) 23 mmol/L 23-31 AGAP (test code = 8225794461) 6 2-16 BUN (test code = 4560902184) 15 mg/dL 7-23 GLUCOSE (test code = 4440611887) 90 mg/dL 70-110 CREATININE (test code = 2160-0) 0.64 mg/dL 0.60-1.25 TOTAL BILI (test code = 1593210948) 2.2 mg/dL 0.1-1.1 H CALCIUM (test code = 5036198672) 8.6 mg/dL 8.6-10.6 T PROTEIN (test code = 0781417962) 7.6 g/dL 6.3-8.2 ALBUMIN (test code = 3709858161) 4.0 g/dL 3.5-5.0 ALK PHOS (test code = 2637391282) 239 U/L 34-122 H ALTv (test code = 1742-6) 39 U/L 5-50 AST(SGOT) (test code = 3081545683) 81 U/L 13-40 H eGFR (test code = 78191-1) 106.4 mL/min/1.73m2 CKD-EPI eGFR (2020). Assuming creatinine has been stable day-to-day for at least three months, the eGFR indicates Category G1 (>= 90 mL/min/1.73 m2) Lab Interpretation (test code = 21012-8) Abnormal [id number] 09:31:25* Test Item Value Reference Range Interpretation Comme nts NT-proBNP (test code = 38412-0) 5880 pg/mL <=125 H LONDON (test code = LONDON) Positive: Heart Failure Likely Lab Interpretation (test code = 27599-5) [id number] 09:31:25* Test Item Value Reference Range Interpretation Comme nts NT-proBNP (test code = 82530-3) 5880 pg/mL <=125 H LONDON (test code = LONDON) Positive: Heart Failure Likely Lab Interpretation (test code = 93475-3) Abnormal [facility] [id number] 09:31:25* Test Item Value Reference Range Interpretation Comme nts NT-proBNP (test code = 51885-1) 5880 pg/mL <=125 H LONDON (test code = LONDON) Positive: Heart Failure Likely Lab Interpretation (test code = 52789-8) Abnormal [facility]2024-05-11 09:23:25* Test Item Value Reference Range Interpretation Comme nts MAGNESIUM (test code = 2233535456) 1.7 mg/dL 1.7-2.4 Lab Interpretation (test cod e = 02540-1) Normal [facility]2024-05-11 09:23:25* Test Item Value Reference Range Interpretation Comme nts MAGNESIUM (test code = 7342749143) 1.7 mg/dL 1.7-2.4 Lab Interpretation (test cod e = 72717-9) Normal [facility]2024-05-11 09:23:25* Test Item Value Reference Range Interpretation Comme nts MAGNESIUM (test code = 8673819488) 1.7 mg/dL 1.7-2.4 Lab Interpretation (test cod e = 51879-1) [facility] [id number] 00:00:00* Test Item Value Reference Range Interpretation Comme nts WBC (test code = 1001) 4.1 K/UL RBC (test code = 1002) 4.25 M/UL HEMOGLOBIN (test code = 1003) 13.7 G/DL HEMATOCRIT (test code = 1004) 39.9 % MCV (test code = 1005) 93.9 fL MCH (test code = 1006) 32.2 PG MCHC (test code = 1007) 34.3 G/DL RDW (test code = 1038) 11.9 % NEUTROPHILS (test code = 1008) 59.1 % LYMPHOCYTES (test code = 1010) 19.5 % MONOCYTES (test code = 1011) 18.0 % EOSINOPHILS (test code = 1012) 1.7 % BASOPHILS (test code = 1013) 1.5 % IMMATURE GRANULOCYTES (test code = 1036) 0.2 % NUCLEATED RBCS (test code = 1065) 0.0 /100WBC'S PLATELET COUNT (test code = 1015) 124 K/UL ABSOLUTE NEUTROPHILS (test c ode = 1066) 2.43 K/UL ABSOLUTE LYMPHOCYTES (test c ode = 1067) 0.80 K/UL ABSOLUTE MONOCYTES (test cod e = 1068) 0.74 K/UL ABSOLUTE EOSINOPHILS (test c ode = 1040) 0.07 K/UL ABSOLUTE BASOPHILS (test cod e = 1069) 0.06 K/UL ABS IMMATURE GRANULOCYTES (t est code = 1020) 0.01 K/UL ABS NUCLEATED RBCS (test cod e = 05100) 0.00 K/UL Chris HarrisLIPID [id number] 00:00:00* Test Item Value Reference Range Interpretation Comme nts CHOLESTEROL (test code = 2210) 156 MG/DL TRIGLYCERIDES (test code = 2232) 48 MG/DL HDL CHOLESTEROL (test code = 2220) 78 MG/DL CALC LDL CHOL (test code = 2237) 64 MG/DL RISK RATIO LDL/HDL (test cod e = 2238) 0.82 RATIO Chris HarrisCOMPREHENSIVE METABOLIC [id number] 00:00:00* Test Item Value Reference Range Interpretation Comme nts GLUCOSE (test code = 2217) 113 MG/DL BUN (test code = 2208) 12 MG/DL CREATININE (test code = 2214) 0.76 MG/DL eGFR (2020 CKD-EPI) (test code = 89069) 101 ML/MIN/1.73 CALC BUN/CREAT (test code = 2235) 16 RATIO SODIUM (test code = 2231) 129 MEQ/L POTASSIUM (test code = 2228) 5.0 MEQ/L CHLORIDE (test code = 2215) 95 MEQ/L CARBON DIOXIDE (test code = 2206) 20 MEQ/L CALCIUM (test code = 2209) 9.8 MG/DL PROTEIN, TOTAL (test code = 2229) 8.1 G/DL ALBUMIN (test code = 2201) 4.6 G/DL CALC GLOBULIN (test code = 2240) 3.5 G/DL CALC A/G RATIO (test code = 2234) 1.3 RATIO BILIRUBIN, TOTAL (test code = 2207) 1.5 MG/DL ALKALINE PHOSPHATASE (test code = 2204) 217 U/L AST (test code = 2218) 48 U/L ALT (test code = 2219) 24 U/L Chris HarrisURINALYSIS W/REFLEX [id number] 00:00:00* Test Item Value Reference Range Interpretation Comme nts COLOR (test code = 1501) YELLOW APPEARANCE (test code = 1502) CLEAR SPECIFIC GRAVITY (test code = 1503) 1.005 LEUKOCYTE ESTERASE (test cod e = 1504) NEGATIVE NITRITE (test code = 1505) NEGATIVE pH (test code = 1506) 5.5 PROTEIN (test code = 1507) NEGATIVE GLUCOSE (test code = 1508) NEGATIVE KETONES (test code = 1509) NEGATIVE UROBILINOGEN (test code = 1510) 0.2 MG/DL BILIRUBIN (test code = 1511) NEGATIVE OCCULT BLOOD (test code = 1512) NEGATIVE Chris HarrisURIC [id number] 00:00:00* Test Item Value Reference Range Interpretation Comme nts URIC ACID (test code = 2233) 5.0 MG/DL Chris HarrisPSA, [id number] 00:00:00* Test Item Value Reference Range Interpretation Comme nts PSA, TOTAL (test code = 2606) 0.59 NG/ML Chris HarrisCBC W/AUTO [id number] 00:00:00* Test Item Value Reference Range Interpretation Comme nts WBC (test code = 1001) 4.1 K/UL RBC (test code = 1002) 4.25 M/UL HEMOGLOBIN (test code = 1003) 13.7 G/DL HEMATOCRIT (test code = 1004) 39.9 % MCV (test code = 1005) 93.9 fL MCH (test code = 1006) 32.2 PG MCHC (test code = 1007) 34.3 G/DL RDW (test code = 1038) 11.9 % NEUTROPHILS (test code = 1008) 59.1 % LYMPHOCYTES (test code = 1010) 19.5 % MONOCYTES (test code = 1011) 18.0 % EOSINOPHILS (test code = 1012) 1.7 % BASOPHILS (test code = 1013) 1.5 % IMMATURE GRANULOCYTES (test code = 1036) 0.2 % NUCLEATED RBCS (test code = 1065) 0.0 /100WBC'S PLATELET COUNT (test code = 1015) 124 K/UL ABSOLUTE NEUTROPHILS (test c ode = 1066) 2.43 K/UL ABSOLUTE LYMPHOCYTES (test c ode = 1067) 0.80 K/UL ABSOLUTE MONOCYTES (test cod e = 1068) 0.74 K/UL ABSOLUTE EOSINOPHILS (test c ode = 1040) 0.07 K/UL ABSOLUTE BASOPHILS (test cod e = 1069) 0.06 K/UL ABS IMMATURE GRANULOCYTES (t est code = 1020) 0.01 K/UL ABS NUCLEATED RBCS (test cod e = 55880) 0.00 K/UL Chris HarrisLIPID [id number] 00:00:00* Test Item Value Reference Range Interpretation Comme nts CHOLESTEROL (test code = 2210) 156 MG/DL TRIGLYCERIDES (test code = 2232) 48 MG/DL HDL CHOLESTEROL (test code = 2220) 78 MG/DL CALC LDL CHOL (test code = 2237) 64 MG/DL RISK RATIO LDL/HDL (test cod e = 2238) 0.82 RATIO Chris HarrisCOMPREHENSIVE METABOLIC [id number] 00:00:00* Test Item Value Reference Range Interpretation Comme nts GLUCOSE (test code = 2217) 113 MG/DL BUN (test code = 2208) 12 MG/DL CREATININE (test code = 2214) 0.76 MG/DL eGFR (2020 CKD-EPI) (test code = 76058) 101 ML/MIN/1.73 CALC BUN/CREAT (test code = 2235) 16 RATIO SODIUM (test code = 2231) 129 MEQ/L POTASSIUM (test code = 2228) 5.0 MEQ/L CHLORIDE (test code = 2215) 95 MEQ/L CARBON DIOXIDE (test code = 2206) 20 MEQ/L CALCIUM (test code = 2209) 9.8 MG/DL PROTEIN, TOTAL (test code = 2229) 8.1 G/DL ALBUMIN (test code = 2201) 4.6 G/DL CALC GLOBULIN (test code = 2240) 3.5 G/DL CALC A/G RATIO (test code = 2234) 1.3 RATIO BILIRUBIN, TOTAL (test code = 2207) 1.5 MG/DL ALKALINE PHOSPHATASE (test code = 2204) 217 U/L AST (test code = 2218) 48 U/L ALT (test code = 2219) 24 U/L Chris HarrisURINALYSIS W/REFLEX [id number] 00:00:00* Test Item Value Reference Range Interpretation Comme nts COLOR (test code = 1501) YELLOW APPEARANCE (test code = 1502) CLEAR SPECIFIC GRAVITY (test code = 1503) 1.005 LEUKOCYTE ESTERASE (test cod e = 1504) NEGATIVE NITRITE (test code = 1505) NEGATIVE pH (test code = 1506) 5.5 PROTEIN (test code = 1507) NEGATIVE GLUCOSE (test code = 1508) NEGATIVE KETONES (test code = 1509) NEGATIVE UROBILINOGEN (test code = 1510) 0.2 MG/DL BILIRUBIN (test code = 1511) NEGATIVE OCCULT BLOOD (test code = 1512) NEGATIVE Chris Jacque StevenURIC [id number] 00:00:00* Test Item Value Reference Range Interpretation Comme nts URIC ACID (test code = 2233) 5.0 MG/DL Chris HarrisPSA, [id number] 00:00:00* Test Item Value Reference Range Interpretation Comme nts PSA, TOTAL (test code = 2606) 0.59 NG/ML Chris HarrisCBC W/AUTO [id number] 00:00:00* Test Item Value Reference Range Interpretation Comme nts WBC (test code = 1001) 4.1 K/UL RBC (test code = 1002) 4.25 M/UL HEMOGLOBIN (test code = 1003) 13.7 G/DL HEMATOCRIT (test code = 1004) 39.9 % MCV (test code = 1005) 93.9 fL MCH (test code = 1006) 32.2 PG MCHC (test code = 1007) 34.3 G/DL RDW (test code = 1038) 11.9 % NEUTROPHILS (test code = 1008) 59.1 % LYMPHOCYTES (test code = 1010) 19.5 % MONOCYTES (test code = 1011) 18.0 % EOSINOPHILS (test code = 1012) 1.7 % BASOPHILS (test code = 1013) 1.5 % IMMATURE GRANULOCYTES (test code = 1036) 0.2 % NUCLEATED RBCS (test code = 1065) 0.0 /100WBC'S PLATELET COUNT (test code = 1015) 124 K/UL ABSOLUTE NEUTROPHILS (test c ode = 1066) 2.43 K/UL ABSOLUTE LYMPHOCYTES (test c ode = 1067) 0.80 K/UL ABSOLUTE MONOCYTES (test cod e = 1068) 0.74 K/UL ABSOLUTE EOSINOPHILS (test c ode = 1040) 0.07 K/UL ABSOLUTE BASOPHILS (test cod e = 1069) 0.06 K/UL ABS IMMATURE GRANULOCYTES (t est code = 1020) 0.01 K/UL ABS NUCLEATED RBCS (test cod e = 10735) 0.00 K/UL Chris Santillan AustinLIPID [id number] 00:00:00* Test Item Value Reference Range Interpretation Comme nts CHOLESTEROL (test code = 2210) 156 MG/DL TRIGLYCERIDES (test code = 2232) 48 MG/DL HDL CHOLESTEROL (test code = 2220) 78 MG/DL CALC LDL CHOL (test code = 2237) 64 MG/DL RISK RATIO LDL/HDL (test cod e = 2238) 0.82 RATIO Chris HarrisCOMPREHENSIVE METABOLIC [id number] 00:00:00* Test Item Value Reference Range Interpretation Comme nts GLUCOSE (test code = 2217) 113 MG/DL BUN (test code = 2208) 12 MG/DL CREATININE (test code = 2214) 0.76 MG/DL eGFR (2020 CKD-EPI) (test code = 98845) 101 ML/MIN/1.73 CALC BUN/CREAT (test code = 2235) 16 RATIO SODIUM (test code = 2231) 129 MEQ/L POTASSIUM (test code = 2228) 5.0 MEQ/L CHLORIDE (test code = 2215) 95 MEQ/L CARBON DIOXIDE (test code = 2206) 20 MEQ/L CALCIUM (test code = 2209) 9.8 MG/DL PROTEIN, TOTAL (test code = 2229) 8.1 G/DL ALBUMIN (test code = 2201) 4.6 G/DL CALC GLOBULIN (test code = 2240) 3.5 G/DL CALC A/G RATIO (test code = 2234) 1.3 RATIO BILIRUBIN, TOTAL (test code = 2207) 1.5 MG/DL ALKALINE PHOSPHATASE (test code = 2204) 217 U/L AST (test code = 2218) 48 U/L ALT (test code = 2219) 24 U/L Chris HarrisURINALYSIS W/REFLEX [id number] 00:00:00* Test Item Value Reference Range Interpretation Comme nts COLOR (test code = 1501) YELLOW APPEARANCE (test code = 1502) CLEAR SPECIFIC GRAVITY (test code = 1503) 1.005 LEUKOCYTE ESTERASE (test cod e = 1504) NEGATIVE NITRITE (test code = 1505) NEGATIVE pH (test code = 1506) 5.5 PROTEIN (test code = 1507) NEGATIVE GLUCOSE (test code = 1508) NEGATIVE KETONES (test code = 1509) NEGATIVE UROBILINOGEN (test code = 1510) 0.2 MG/DL BILIRUBIN (test code = 1511) NEGATIVE OCCULT BLOOD (test code = 1512) NEGATIVE Chris HarrisURIC [id number] 00:00:00* Test Item Value Reference Range Interpretation Comme nts URIC ACID (test code = 2233) 5.0 MG/DL Chris HarrisPSA, [id number] 00:00:00* Test Item Value Reference Range Interpretation Comme nts PSA, TOTAL (test code = 2606) 0.59 NG/ML Chris HarrisCBC W/AUTO [id number] 00:00:00* Test Item Value Reference Range Interpretation Comme nts WBC (test code = 1001) 4.1 K/UL RBC (test code = 1002) 4.25 M/UL HEMOGLOBIN (test code = 1003) 13.7 G/DL HEMATOCRIT (test code = 1004) 39.9 % MCV (test code = 1005) 93.9 fL MCH (test code = 1006) 32.2 PG MCHC (test code = 1007) 34.3 G/DL RDW (test code = 1038) 11.9 % NEUTROPHILS (test code = 1008) 59.1 % LYMPHOCYTES (test code = 1010) 19.5 % MONOCYTES (test code = 1011) 18.0 % EOSINOPHILS (test code = 1012) 1.7 % BASOPHILS (test code = 1013) 1.5 % IMMATURE GRANULOCYTES (test code = 1036) 0.2 % NUCLEATED RBCS (test code = 1065) 0.0 /100WBC'S PLATELET COUNT (test code = 1015) 124 K/UL ABSOLUTE NEUTROPHILS (test c ode = 1066) 2.43 K/UL ABSOLUTE LYMPHOCYTES (test c ode = 1067) 0.80 K/UL ABSOLUTE MONOCYTES (test cod e = 1068) 0.74 K/UL ABSOLUTE EOSINOPHILS (test c ode = 1040) 0.07 K/UL ABSOLUTE BASOPHILS (test cod e = 1069) 0.06 K/UL ABS IMMATURE GRANULOCYTES (t est code = 1020) 0.01 K/UL ABS NUCLEATED RBCS (test cod e = 58408) 0.00 K/UL Chris Jacque AustinLIPID [id number] 00:00:00* Test Item Value Reference Range Interpretation Comme nts CHOLESTEROL (test code = 2210) 156 MG/DL TRIGLYCERIDES (test code = 2232) 48 MG/DL HDL CHOLESTEROL (test code = 2220) 78 MG/DL CALC LDL CHOL (test code = 2237) 64 MG/DL RISK RATIO LDL/HDL (test cod e = 2238) 0.82 RATIO Chris Santillan StevenCOMPREHENSIVE METABOLIC [id number] 00:00:00* Test Item Value Reference Range Interpretation Comme nts GLUCOSE (test code = 2217) 113 MG/DL BUN (test code = 2208) 12 MG/DL CREATININE (test code = 2214) 0.76 MG/DL eGFR (2020 CKD-EPI) (test code = 62883) 101 ML/MIN/1.73 CALC BUN/CREAT (test code = 2235) 16 RATIO SODIUM (test code = 2231) 129 MEQ/L POTASSIUM (test code = 2228) 5.0 MEQ/L CHLORIDE (test code = 2215) 95 MEQ/L CARBON DIOXIDE (test code = 2206) 20 MEQ/L CALCIUM (test code = 2209) 9.8 MG/DL PROTEIN, TOTAL (test code = 2229) 8.1 G/DL ALBUMIN (test code = 2201) 4.6 G/DL CALC GLOBULIN (test code = 2240) 3.5 G/DL CALC A/G RATIO (test code = 2234) 1.3 RATIO BILIRUBIN, TOTAL (test code = 2207) 1.5 MG/DL ALKALINE PHOSPHATASE (test code = 2204) 217 U/L AST (test code = 2218) 48 U/L ALT (test code = 2219) 24 U/L Chris HarrisURINALYSIS W/REFLEX [id number] 00:00:00* Test Item Value Reference Range Interpretation Comme nts COLOR (test code = 1501) YELLOW APPEARANCE (test code = 1502) CLEAR SPECIFIC GRAVITY (test code = 1503) 1.005 LEUKOCYTE ESTERASE (test cod e = 1504) NEGATIVE NITRITE (test code = 1505) NEGATIVE pH (test code = 1506) 5.5 PROTEIN (test code = 1507) NEGATIVE GLUCOSE (test code = 1508) NEGATIVE KETONES (test code = 1509) NEGATIVE UROBILINOGEN (test code = 1510) 0.2 MG/DL BILIRUBIN (test code = 1511) NEGATIVE OCCULT BLOOD (test code = 1512) NEGATIVE Chris Jacque StevenURIC [id number] 00:00:00* Test Item Value Reference Range Interpretation Comme nts URIC ACID (test code = 2233) 5.0 MG/DL Chris Jacque StevenPSA, [id number] 00:00:00* Test Item Value Reference Range Interpretation Comme nts PSA, TOTAL (test code = 2606) 0.59 NG/ML Chris HarrisCBC W/AUTO [id number] 00:00:00* Test Item Value Reference Range Interpretation Comme nts WBC (test code = 1001) 4.1 K/UL RBC (test code = 1002) 4.25 M/UL HEMOGLOBIN (test code = 1003) 13.7 G/DL HEMATOCRIT (test code = 1004) 39.9 % MCV (test code = 1005) 93.9 fL MCH (test code = 1006) 32.2 PG MCHC (test code = 1007) 34.3 G/DL RDW (test code = 1038) 11.9 % NEUTROPHILS (test code = 1008) 59.1 % LYMPHOCYTES (test code = 1010) 19.5 % MONOCYTES (test code = 1011) 18.0 % EOSINOPHILS (test code = 1012) 1.7 % BASOPHILS (test code = 1013) 1.5 % IMMATURE GRANULOCYTES (test code = 1036) 0.2 % NUCLEATED RBCS (test code = 1065) 0.0 /100WBC'S PLATELET COUNT (test code = 1015) 124 K/UL ABSOLUTE NEUTROPHILS (test c ode = 1066) 2.43 K/UL ABSOLUTE LYMPHOCYTES (test c ode = 1067) 0.80 K/UL ABSOLUTE MONOCYTES (test cod e = 1068) 0.74 K/UL ABSOLUTE EOSINOPHILS (test c ode = 1040) 0.07 K/UL ABSOLUTE BASOPHILS (test cod e = 1069) 0.06 K/UL ABS IMMATURE GRANULOCYTES (t est code = 1020) 0.01 K/UL ABS NUCLEATED RBCS (test cod e = 44778) 0.00 K/UL Chris Jacque AustinLIPID [id number] 00:00:00* Test Item Value Reference Range Interpretation Comme nts CHOLESTEROL (test code = 2210) 156 MG/DL TRIGLYCERIDES (test code = 2232) 48 MG/DL HDL CHOLESTEROL (test code = 2220) 78 MG/DL CALC LDL CHOL (test code = 2237) 64 MG/DL RISK RATIO LDL/HDL (test cod e = 2238) 0.82 RATIO Chris Santillan AustinCOMPREHENSIVE METABOLIC [id number] 00:00:00* Test Item Value Reference Range Interpretation Comme nts GLUCOSE (test code = 2217) 113 MG/DL BUN (test code = 2208) 12 MG/DL CREATININE (test code = 2214) 0.76 MG/DL eGFR (2020 CKD-EPI) (test code = 13692) 101 ML/MIN/1.73 CALC BUN/CREAT (test code = 2235) 16 RATIO SODIUM (test code = 2231) 129 MEQ/L POTASSIUM (test code = 2228) 5.0 MEQ/L CHLORIDE (test code = 2215) 95 MEQ/L CARBON DIOXIDE (test code = 2206) 20 MEQ/L CALCIUM (test code = 2209) 9.8 MG/DL PROTEIN, TOTAL (test code = 2229) 8.1 G/DL ALBUMIN (test code = 2201) 4.6 G/DL CALC GLOBULIN (test code = 2240) 3.5 G/DL CALC A/G RATIO (test code = 2234) 1.3 RATIO BILIRUBIN, TOTAL (test code = 2207) 1.5 MG/DL ALKALINE PHOSPHATASE (test code = 2204) 217 U/L AST (test code = 2218) 48 U/L ALT (test code = 2219) 24 U/L Chris Jacque StevenURINALYSIS W/REFLEX [id number] 00:00:00* Test Item Value Reference Range Interpretation Comme nts COLOR (test code = 1501) YELLOW APPEARANCE (test code = 1502) CLEAR SPECIFIC GRAVITY (test code = 1503) 1.005 LEUKOCYTE ESTERASE (test cod e = 1504) NEGATIVE NITRITE (test code = 1505) NEGATIVE pH (test code = 1506) 5.5 PROTEIN (test code = 1507) NEGATIVE GLUCOSE (test code = 1508) NEGATIVE KETONES (test code = 1509) NEGATIVE UROBILINOGEN (test code = 1510) 0.2 MG/DL BILIRUBIN (test code = 1511) NEGATIVE OCCULT BLOOD (test code = 1512) NEGATIVE Chris Jacque StevenURIC [id number] 00:00:00* Test Item Value Reference Range Interpretation Comme nts URIC ACID (test code = 2233) 5.0 MG/DL Chris Jacque StevenPSA, [id number] 00:00:00* Test Item Value Reference Range Interpretation Comme nts PSA, TOTAL (test code = 2606) 0.59 NG/ML Chris Jacque StevenCBC W/AUTO [id number] 00:00:00* Test Item Value Reference Range Interpretation Comme nts WBC (test code = 1001) 4.1 K/UL RBC (test code = 1002) 4.25 M/UL HEMOGLOBIN (test code = 1003) 13.7 G/DL HEMATOCRIT (test code = 1004) 39.9 % MCV (test code = 1005) 93.9 fL MCH (test code = 1006) 32.2 PG MCHC (test code = 1007) 34.3 G/DL RDW (test code = 1038) 11.9 % NEUTROPHILS (test code = 1008) 59.1 % LYMPHOCYTES (test code = 1010) 19.5 % MONOCYTES (test code = 1011) 18.0 % EOSINOPHILS (test code = 1012) 1.7 % BASOPHILS (test code = 1013) 1.5 % IMMATURE GRANULOCYTES (test code = 1036) 0.2 % NUCLEATED RBCS (test code = 1065) 0.0 /100WBC'S PLATELET COUNT (test code = 1015) 124 K/UL ABSOLUTE NEUTROPHILS (test c ode = 1066) 2.43 K/UL ABSOLUTE LYMPHOCYTES (test c ode = 1067) 0.80 K/UL ABSOLUTE MONOCYTES (test cod e = 1068) 0.74 K/UL ABSOLUTE EOSINOPHILS (test c ode = 1040) 0.07 K/UL ABSOLUTE BASOPHILS (test cod e = 1069) 0.06 K/UL ABS IMMATURE GRANULOCYTES (t est code = 1020) 0.01 K/UL ABS NUCLEATED RBCS (test cod e = 46764) 0.00 K/UL Chris Santillan AustinLIPID [id number] 00:00:00* Test Item Value Reference Range Interpretation Comme nts CHOLESTEROL (test code = 2210) 156 MG/DL TRIGLYCERIDES (test code = 2232) 48 MG/DL HDL CHOLESTEROL (test code = 2220) 78 MG/DL CALC LDL CHOL (test code = 2237) 64 MG/DL RISK RATIO LDL/HDL (test cod e = 2238) 0.82 RATIO Chris HarrisCOMPREHENSIVE METABOLIC [id number] 00:00:00* Test Item Value Reference Range Interpretation Comme nts GLUCOSE (test code = 2217) 113 MG/DL BUN (test code = 2208) 12 MG/DL CREATININE (test code = 2214) 0.76 MG/DL eGFR (2020 CKD-EPI) (test code = 59846) 101 ML/MIN/1.73 CALC BUN/CREAT (test code = 2235) 16 RATIO SODIUM (test code = 2231) 129 MEQ/L POTASSIUM (test code = 2228) 5.0 MEQ/L CHLORIDE (test code = 2215) 95 MEQ/L CARBON DIOXIDE (test code = 2206) 20 MEQ/L CALCIUM (test code = 2209) 9.8 MG/DL PROTEIN, TOTAL (test code = 2229) 8.1 G/DL ALBUMIN (test code = 2201) 4.6 G/DL CALC GLOBULIN (test code = 2240) 3.5 G/DL CALC A/G RATIO (test code = 2234) 1.3 RATIO BILIRUBIN, TOTAL (test code = 2207) 1.5 MG/DL ALKALINE PHOSPHATASE (test code = 2204) 217 U/L AST (test code = 2218) 48 U/L ALT (test code = 2219) 24 U/L Chris Santillan StevenURINALYSIS W/REFLEX [id number] 00:00:00* Test Item Value Reference Range Interpretation Comme nts COLOR (test code = 1501) YELLOW APPEARANCE (test code = 1502) CLEAR SPECIFIC GRAVITY (test code = 1503) 1.005 LEUKOCYTE ESTERASE (test cod e = 1504) NEGATIVE NITRITE (test code = 1505) NEGATIVE pH (test code = 1506) 5.5 PROTEIN (test code = 1507) NEGATIVE GLUCOSE (test code = 1508) NEGATIVE KETONES (test code = 1509) NEGATIVE UROBILINOGEN (test code = 1510) 0.2 MG/DL BILIRUBIN (test code = 1511) NEGATIVE OCCULT BLOOD (test code = 1512) NEGATIVE Chris HarrisURIC [id number] 00:00:00* Test Item Value Reference Range Interpretation Comme nts URIC ACID (test code = 2233) 5.0 MG/DL Chris Santillan StevenPSA, [id number] 00:00:00* Test Item Value Reference Range Interpretation Comme nts PSA, TOTAL (test code = 2606) 0.59 NG/ML Chris Santillan StevenCBC W/AUTO [id number] 00:00:00* Test Item Value Reference Range Interpretation Comme nts WBC (test code = 1001) 4.1 K/UL RBC (test code = 1002) 4.25 M/UL HEMOGLOBIN (test code = 1003) 13.7 G/DL HEMATOCRIT (test code = 1004) 39.9 % MCV (test code = 1005) 93.9 fL MCH (test code = 1006) 32.2 PG MCHC (test code = 1007) 34.3 G/DL RDW (test code = 1038) 11.9 % NEUTROPHILS (test code = 1008) 59.1 % LYMPHOCYTES (test code = 1010) 19.5 % MONOCYTES (test code = 1011) 18.0 % EOSINOPHILS (test code = 1012) 1.7 % BASOPHILS (test code = 1013) 1.5 % IMMATURE GRANULOCYTES (test code = 1036) 0.2 % NUCLEATED RBCS (test code = 1065) 0.0 /100WBC'S PLATELET COUNT (test code = 1015) 124 K/UL ABSOLUTE NEUTROPHILS (test c ode = 1066) 2.43 K/UL ABSOLUTE LYMPHOCYTES (test c ode = 1067) 0.80 K/UL ABSOLUTE MONOCYTES (test cod e = 1068) 0.74 K/UL ABSOLUTE EOSINOPHILS (test c ode = 1040) 0.07 K/UL ABSOLUTE BASOPHILS (test cod e = 1069) 0.06 K/UL ABS IMMATURE GRANULOCYTES (t est code = 1020) 0.01 K/UL ABS NUCLEATED RBCS (test cod e = 53813) 0.00 K/UL Chris HarrisLIPID [id number] 00:00:00* Test Item Value Reference Range Interpretation Comme nts CHOLESTEROL (test code = 2210) 156 MG/DL TRIGLYCERIDES (test code = 2232) 48 MG/DL HDL CHOLESTEROL (test code = 2220) 78 MG/DL CALC LDL CHOL (test code = 2237) 64 MG/DL RISK RATIO LDL/HDL (test cod e = 2238) 0.82 RATIO Chris Santillan StevenCOMPREHENSIVE METABOLIC [id number] 00:00:00* Test Item Value Reference Range Interpretation Comme nts GLUCOSE (test code = 2217) 113 MG/DL BUN (test code = 2208) 12 MG/DL CREATININE (test code = 2214) 0.76 MG/DL eGFR (2020 CKD-EPI) (test code = 18761) 101 ML/MIN/1.73 CALC BUN/CREAT (test code = 2235) 16 RATIO SODIUM (test code = 2231) 129 MEQ/L POTASSIUM (test code = 2228) 5.0 MEQ/L CHLORIDE (test code = 2215) 95 MEQ/L CARBON DIOXIDE (test code = 2206) 20 MEQ/L CALCIUM (test code = 2209) 9.8 MG/DL PROTEIN, TOTAL (test code = 2229) 8.1 G/DL ALBUMIN (test code = 2201) 4.6 G/DL CALC GLOBULIN (test code = 2240) 3.5 G/DL CALC A/G RATIO (test code = 2234) 1.3 RATIO BILIRUBIN, TOTAL (test code = 2207) 1.5 MG/DL ALKALINE PHOSPHATASE (test code = 2204) 217 U/L AST (test code = 2218) 48 U/L ALT (test code = 2219) 24 U/L Chris HarrisURINALYSIS W/REFLEX [id number] 00:00:00* Test Item Value Reference Range Interpretation Comme nts COLOR (test code = 1501) YELLOW APPEARANCE (test code = 1502) CLEAR SPECIFIC GRAVITY (test code = 1503) 1.005 LEUKOCYTE ESTERASE (test cod e = 1504) NEGATIVE NITRITE (test code = 1505) NEGATIVE pH (test code = 1506) 5.5 PROTEIN (test code = 1507) NEGATIVE GLUCOSE (test code = 1508) NEGATIVE KETONES (test code = 1509) NEGATIVE UROBILINOGEN (test code = 1510) 0.2 MG/DL BILIRUBIN (test code = 1511) NEGATIVE OCCULT BLOOD (test code = 1512) NEGATIVE Chris HarrisURIC [id number] 00:00:00* Test Item Value Reference Range Interpretation Comme nts URIC ACID (test code = 2233) 5.0 MG/DL Chris HarrisPSA, [id number] 00:00:00* Test Item Value Reference Range Interpretation Comme nts PSA, TOTAL (test code = 2606) 0.59 NG/ML Chris HarrisHEMOGLOBIN [id number] 02:30:25* Test Item Value Reference Range Interpretation Comme paola HEMOGLOBIN A1c (test code = 14051) 6.1 % 4.2-5.6 H [employer] GUIDELINES FOR HGB A1C: PREDIABETES/INCREASED RISK . . . . . . . 5.7-6.4% DIAGNOSIS OF DIABETES . . . . . . . . . >=6.5% WITH CONFIRMATION OR APPROPRIATE SYMPTOMS NOTE: ASSAY MAY BE AFFECTED BY HEMOGLOBINOPATHIES (SICKLE CELL ANEMIA, S-C DISEASE, OTHERS) OR ARTIFICIALLY LOWERED BY DECREASED RED CELL SURVIVAL (HEMOLYTIC ANEMIAS, BLOOD LOSS, ETC.). CONSIDER ALTERNATE TESTING OR LABORATORY CONSULTATION. UNLESS OTHERWISE INDICATED, ALL TESTING PERFORMED AT [facility] [address] [place] [id number] CIG[employer] HEAD PEGGER: STANFORD OHARA M.D. [place] NUMBER [id number] [place]. [id number] HEMOGLOBIN [id number] 00:00:00* Test Item Value Reference Range Interpretation Comme nts HEMOGLOBIN A1c (test code = 61678) 6.1 % Chris F AustinHEMOGLOBIN [id number] 00:00:00* Test Item Value Reference Range Interpretation Comme nts HEMOGLOBIN A1c (test code = 62424) 6.1 % Chris F AustinHEMOGLOBIN [id number] 00:00:00* Test Item Value Reference Range Interpretation Comme nts HEMOGLOBIN A1c (test code = 46503) 6.1 % Chris F AustinHEMOGLOBIN [id number] 00:00:00* Test Item Value Reference Range Interpretation Comme nts HEMOGLOBIN A1c (test code = 29458) 6.1 % Chris F AustinHEMOGLOBIN [id number] 00:00:00* Test Item Value Reference Range Interpretation Comme nts HEMOGLOBIN A1c (test code = 87043) 6.1 % Chris F AustinHEMOGLOBIN [id number] 00:00:00* Test Item Value Reference Range Interpretation Comme nts HEMOGLOBIN A1c (test code = 93055) 6.1 % Chris F AustinHEMOGLOBIN [id number] 00:00:00* Test Item Value Reference Range Interpretation Comme nts HEMOGLOBIN A1c (test code = 18055) 6.1 % Chris F AustinCBC W/AUTO [id number] 00:00:00* Test Item Value Reference Range Interpretation Comme nts WBC (test code = 1001) 4.2 K/UL RBC (test code = 1002) 3.96 M/UL HEMOGLOBIN (test code = 1003) 13.3 G/DL HEMATOCRIT (test code = 1004) 37.3 % MCV (test code = 1005) 94.2 fL MCH (test code = 1006) 33.6 PG MCHC (test code = 1007) 35.7 G/DL RDW (test code = 1038) 12.3 % NEUTROPHILS (test code = 1008) 64.3 % LYMPHOCYTES (test code = 1010) 16.1 % MONOCYTES (test code = 1011) 17.0 % EOSINOPHILS (test code = 1012) 1.2 % BASOPHILS (test code = 1013) 1.2 % IMMATURE GRANULOCYTES (test code = 1036) 0.2 % NUCLEATED RBCS (test code = 1065) 0.0 /100WBC'S PLATELET COUNT (test code = 1015) 129 K/UL ABSOLUTE NEUTROPHILS (test c ode = 1066) 2.68 K/UL ABSOLUTE LYMPHOCYTES (test c ode = 1067) 0.67 K/UL ABSOLUTE MONOCYTES (test cod e = 1068) 0.71 K/UL ABSOLUTE EOSINOPHILS (test c ode = 1040) 0.05 K/UL ABSOLUTE BASOPHILS (test cod e = 1069) 0.05 K/UL ABS IMMATURE GRANULOCYTES (t est code = 1020) 0.01 K/UL ABS NUCLEATED RBCS (test cod e = 98359) 0.00 K/UL Chris HarrisCOMPREHENSIVE METABOLIC [id number] 00:00:00* Test Item Value Reference Range Interpretation Comme nts GLUCOSE (test code = 2217) 110 MG/DL BUN (test code = 2208) 10 MG/DL CREATININE (test code = 2214) 0.72 MG/DL eGFR (2020 CKD-EPI) (test code = 95279) 103 ML/MIN/1.73 CALC BUN/CREAT (test code = 2235) 14 RATIO SODIUM (test code = 2231) 128 MEQ/L POTASSIUM (test code = 2228) 4.4 MEQ/L CHLORIDE (test code = 2215) 94 MEQ/L CARBON DIOXIDE (test code = 2206) 23 MEQ/L CALCIUM (test code = 2209) 9.3 MG/DL PROTEIN, TOTAL (test code = 2229) 7.1 G/DL ALBUMIN (test code = 2201) 4.4 G/DL CALC GLOBULIN (test code = 2240) 2.7 G/DL CALC A/G RATIO (test code = 2234) 1.6 RATIO BILIRUBIN, TOTAL (test code = 2207) 1.0 MG/DL ALKALINE PHOSPHATASE (test code = 2204) 164 U/L AST (test code = 2218) 60 U/L ALT (test code = 2219) 34 U/L Chris HarrisSjihnrY-[id number] 00:00:00* Test Item Value Reference Range Interpretation Comme nts D-DIMER (test code = 1405) 0.60 UG/MLFEU Chris HarrisCBC W/AUTO [id number] 00:00:00* Test Item Value Reference Range Interpretation Comme nts WBC (test code = 1001) 4.2 K/UL RBC (test code = 1002) 3.96 M/UL HEMOGLOBIN (test code = 1003) 13.3 G/DL HEMATOCRIT (test code = 1004) 37.3 % MCV (test code = 1005) 94.2 fL MCH (test code = 1006) 33.6 PG MCHC (test code = 1007) 35.7 G/DL RDW (test code = 1038) 12.3 % NEUTROPHILS (test code = 1008) 64.3 % LYMPHOCYTES (test code = 1010) 16.1 % MONOCYTES (test code = 1011) 17.0 % EOSINOPHILS (test code = 1012) 1.2 % BASOPHILS (test code = 1013) 1.2 % IMMATURE GRANULOCYTES (test code = 1036) 0.2 % NUCLEATED RBCS (test code = 1065) 0.0 /100WBC'S PLATELET COUNT (test code = 1015) 129 K/UL ABSOLUTE NEUTROPHILS (test c ode = 1066) 2.68 K/UL ABSOLUTE LYMPHOCYTES (test c ode = 1067) 0.67 K/UL ABSOLUTE MONOCYTES (test cod e = 1068) 0.71 K/UL ABSOLUTE EOSINOPHILS (test c ode = 1040) 0.05 K/UL ABSOLUTE BASOPHILS (test cod e = 1069) 0.05 K/UL ABS IMMATURE GRANULOCYTES (t est code = 1020) 0.01 K/UL ABS NUCLEATED RBCS (test cod e = 26912) 0.00 K/UL Chris HarrisCOMPREHENSIVE METABOLIC [id number] 00:00:00* Test Item Value Reference Range Interpretation Comme nts GLUCOSE (test code = 2217) 110 MG/DL BUN (test code = 2208) 10 MG/DL CREATININE (test code = 2214) 0.72 MG/DL eGFR (2020 CKD-EPI) (test code = 05916) 103 ML/MIN/1.73 CALC BUN/CREAT (test code = 2235) 14 RATIO SODIUM (test code = 2231) 128 MEQ/L POTASSIUM (test code = 2228) 4.4 MEQ/L CHLORIDE (test code = 2215) 94 MEQ/L CARBON DIOXIDE (test code = 2206) 23 MEQ/L CALCIUM (test code = 2209) 9.3 MG/DL PROTEIN, TOTAL (test code = 2229) 7.1 G/DL ALBUMIN (test code = 2201) 4.4 G/DL CALC GLOBULIN (test code = 2240) 2.7 G/DL CALC A/G RATIO (test code = 2234) 1.6 RATIO BILIRUBIN, TOTAL (test code = 2207) 1.0 MG/DL ALKALINE PHOSPHATASE (test code = 2204) 164 U/L AST (test code = 2218) 60 U/L ALT (test code = 2219) 34 U/L Chris Santillan [id number] 00:00:00* Test Item Value Reference Range Interpretation Comme nts D-DIMER (test code = 1405) 0.60 UG/MLFEU Chris HarrisCBC W/AUTO [id number] 00:00:00* Test Item Value Reference Range Interpretation Comme nts WBC (test code = 1001) 4.2 K/UL RBC (test code = 1002) 3.96 M/UL HEMOGLOBIN (test code = 1003) 13.3 G/DL HEMATOCRIT (test code = 1004) 37.3 % MCV (test code = 1005) 94.2 fL MCH (test code = 1006) 33.6 PG MCHC (test code = 1007) 35.7 G/DL RDW (test code = 1038) 12.3 % NEUTROPHILS (test code = 1008) 64.3 % LYMPHOCYTES (test code = 1010) 16.1 % MONOCYTES (test code = 1011) 17.0 % EOSINOPHILS (test code = 1012) 1.2 % BASOPHILS (test code = 1013) 1.2 % IMMATURE GRANULOCYTES (test code = 1036) 0.2 % NUCLEATED RBCS (test code = 1065) 0.0 /100WBC'S PLATELET COUNT (test code = 1015) 129 K/UL ABSOLUTE NEUTROPHILS (test c ode = 1066) 2.68 K/UL ABSOLUTE LYMPHOCYTES (test c ode = 1067) 0.67 K/UL ABSOLUTE MONOCYTES (test cod e = 1068) 0.71 K/UL ABSOLUTE EOSINOPHILS (test c ode = 1040) 0.05 K/UL ABSOLUTE BASOPHILS (test cod e = 1069) 0.05 K/UL ABS IMMATURE GRANULOCYTES (t est code = 1020) 0.01 K/UL ABS NUCLEATED RBCS (test cod e = [id number]) 0.00 K/UL Chris HarrisCOMPREHENSIVE METABOLIC [id number] 00:00:00* Test Item Value Reference Range Interpretation Comme nts GLUCOSE (test code = 2217) 110 MG/DL BUN (test code = 2208) 10 MG/DL CREATININE (test code = 2214) 0.72 MG/DL eGFR (2020 CKD-EPI) (test code = 01282) 103 ML/MIN/1.73 CALC BUN/CREAT (test code = 2235) 14 RATIO SODIUM (test code = 2231) 128 MEQ/L POTASSIUM (test code = 2228) 4.4 MEQ/L CHLORIDE (test code = 2215) 94 MEQ/L CARBON DIOXIDE (test code = 2206) 23 MEQ/L CALCIUM (test code = 2209) 9.3 MG/DL PROTEIN, TOTAL (test code = 2229) 7.1 G/DL ALBUMIN (test code = 2201) 4.4 G/DL CALC GLOBULIN (test code = 2240) 2.7 G/DL CALC A/G RATIO (test code = 2234) 1.6 RATIO BILIRUBIN, TOTAL (test code = 2207) 1.0 MG/DL ALKALINE PHOSPHATASE (test code = 2204) 164 U/L AST (test code = 2218) 60 U/L ALT (test code = 2219) 34 U/L Chris HarrisBocxoaG-[id number] 00:00:00* Test Item Value Reference Range Interpretation Comme nts D-DIMER (test code = 1405) 0.60 UG/MLFEU Chris Santillan StevenCBC W/AUTO [id number] 00:00:00* Test Item Value Reference Range Interpretation Comme nts WBC (test code = 1001) 4.2 K/UL RBC (test code = 1002) 3.96 M/UL HEMOGLOBIN (test code = 1003) 13.3 G/DL HEMATOCRIT (test code = 1004) 37.3 % MCV (test code = 1005) 94.2 fL MCH (test code = 1006) 33.6 PG MCHC (test code = 1007) 35.7 G/DL RDW (test code = 1038) 12.3 % NEUTROPHILS (test code = 1008) 64.3 % LYMPHOCYTES (test code = 1010) 16.1 % MONOCYTES (test code = 1011) 17.0 % EOSINOPHILS (test code = 1012) 1.2 % BASOPHILS (test code = 1013) 1.2 % IMMATURE GRANULOCYTES (test code = 1036) 0.2 % NUCLEATED RBCS (test code = 1065) 0.0 /100WBC'S PLATELET COUNT (test code = 1015) 129 K/UL ABSOLUTE NEUTROPHILS (test c ode = 1066) 2.68 K/UL ABSOLUTE LYMPHOCYTES (test c ode = 1067) 0.67 K/UL ABSOLUTE MONOCYTES (test cod e = 1068) 0.71 K/UL ABSOLUTE EOSINOPHILS (test c ode = 1040) 0.05 K/UL ABSOLUTE BASOPHILS (test cod e = 1069) 0.05 K/UL ABS IMMATURE GRANULOCYTES (t est code = 1020) 0.01 K/UL ABS NUCLEATED RBCS (test cod e = 03058) 0.00 K/UL Chris HarrisCOMPREHENSIVE METABOLIC [id number] 00:00:00* Test Item Value Reference Range Interpretation Comme nts GLUCOSE (test code = 2217) 110 MG/DL BUN (test code = 2208) 10 MG/DL CREATININE (test code = 2214) 0.72 MG/DL eGFR (2020 CKD-EPI) (test code = 46673) 103 ML/MIN/1.73 CALC BUN/CREAT (test code = 2235) 14 RATIO SODIUM (test code = 2231) 128 MEQ/L POTASSIUM (test code = 2228) 4.4 MEQ/L CHLORIDE (test code = 2215) 94 MEQ/L CARBON DIOXIDE (test code = 2206) 23 MEQ/L CALCIUM (test code = 2209) 9.3 MG/DL PROTEIN, TOTAL (test code = 2229) 7.1 G/DL ALBUMIN (test code = 2201) 4.4 G/DL CALC GLOBULIN (test code = 2240) 2.7 G/DL CALC A/G RATIO (test code = 2234) 1.6 RATIO BILIRUBIN, TOTAL (test code = 2207) 1.0 MG/DL ALKALINE PHOSPHATASE (test code = 2204) 164 U/L AST (test code = 2218) 60 U/L ALT (test code = 2219) 34 U/L Chris HarrisRgorktD-[id number] 00:00:00* Test Item Value Reference Range Interpretation Comme nts D-DIMER (test code = 1405) 0.60 UG/MLFEU Chris HarrisCBC W/AUTO [id number] 00:00:00* Test Item Value Reference Range Interpretation Comme nts WBC (test code = 1001) 4.2 K/UL RBC (test code = 1002) 3.96 M/UL HEMOGLOBIN (test code = 1003) 13.3 G/DL HEMATOCRIT (test code = 1004) 37.3 % MCV (test code = 1005) 94.2 fL MCH (test code = 1006) 33.6 PG MCHC (test code = 1007) 35.7 G/DL RDW (test code = 1038) 12.3 % NEUTROPHILS (test code = 1008) 64.3 % LYMPHOCYTES (test code = 1010) 16.1 % MONOCYTES (test code = 1011) 17.0 % EOSINOPHILS (test code = 1012) 1.2 % BASOPHILS (test code = 1013) 1.2 % IMMATURE GRANULOCYTES (test code = 1036) 0.2 % NUCLEATED RBCS (test code = 1065) 0.0 /100WBC'S PLATELET COUNT (test code = 1015) 129 K/UL ABSOLUTE NEUTROPHILS (test c ode = 1066) 2.68 K/UL ABSOLUTE LYMPHOCYTES (test c ode = 1067) 0.67 K/UL ABSOLUTE MONOCYTES (test cod e = 1068) 0.71 K/UL ABSOLUTE EOSINOPHILS (test c ode = 1040) 0.05 K/UL ABSOLUTE BASOPHILS (test cod e = 1069) 0.05 K/UL ABS IMMATURE GRANULOCYTES (t est code = 1020) 0.01 K/UL ABS NUCLEATED RBCS (test cod e = 79065) 0.00 K/UL Chris HarrisCOMPREHENSIVE METABOLIC [id number] 00:00:00* Test Item Value Reference Range Interpretation Comme nts GLUCOSE (test code = 2217) 110 MG/DL BUN (test code = 2208) 10 MG/DL CREATININE (test code = 2214) 0.72 MG/DL eGFR (2020 CKD-EPI) (test code = ) 103 ML/MIN/1.73 CALC BUN/CREAT (test code = 2235) 14 RATIO SODIUM (test code = 2231) 128 MEQ/L POTASSIUM (test code = 2228) 4.4 MEQ/L CHLORIDE (test code = 2215) 94 MEQ/L CARBON DIOXIDE (test code = 2206) 23 MEQ/L CALCIUM (test code = 2209) 9.3 MG/DL PROTEIN, TOTAL (test code = 222) 7.1 G/DL ALBUMIN (test code = 2201) 4.4 G/DL CALC GLOBULIN (test code = 2240) 2.7 G/DL CALC A/G RATIO (test code = 2234) 1.6 RATIO BILIRUBIN, TOTAL (test code = 2206) 1.0 MG/DL ALKALINE PHOSPHATASE (test code = 4) 164 U/L AST (test code = 2218) 60 U/L ALT (test code = 2219) 34 U/L Chris Santillan FtreffK-[id number] 00:00:00* Test Item Value Reference Range Interpretation Comme [facility] D-DIMER (test code = 1405) 0.60 UG/MLFEU Chris Santillan StevenCBC W/AUTO [id number] 00:00:00* Test Item Value Reference Range Interpretation Comme [facility] WBC (test code = 1001) 4.2 K/UL RBC (test code = 1002) 3.96 M/UL HEMOGLOBIN (test code = 1003) 13.3 G/DL HEMATOCRIT (test code = 1004) 37.3 % MCV (test code = 1005) 94.2 fL MCH (test code = 1006) 33.6 PG MCHC (test code = 1007) 35.7 G/DL RDW (test code = 1038) 12.3 % NEUTROPHILS (test code = 1008) 64.3 % LYMPHOCYTES (test code = 1010) 16.1 % MONOCYTES (test code = 1011) 17.0 % EOSINOPHILS (test code = 1012) 1.2 % BASOPHILS (test code = 1013) 1.2 % IMMATURE GRANULOCYTES (test code = 1036) 0.2 % NUCLEATED RBCS (test code = 1065) 0.0 /100WBC'S PLATELET COUNT (test code = 1015) 129 K/UL ABSOLUTE NEUTROPHILS (test c ode = 1066) 2.68 K/UL ABSOLUTE LYMPHOCYTES (test c ode = 1067) 0.67 K/UL ABSOLUTE MONOCYTES (test cod e = 1068) 0.71 K/UL ABSOLUTE EOSINOPHILS (test c ode = 1040) 0.05 K/UL ABSOLUTE BASOPHILS (test cod e = 1069) 0.05 K/UL ABS IMMATURE GRANULOCYTES (t est code = 1020) 0.01 K/UL ABS NUCLEATED RBCS (test cod e = 53464) 0.00 K/UL Chris HarrisCOMPREHENSIVE METABOLIC [id number] 00:00:00* Test Item Value Reference Range Interpretation Comme nts GLUCOSE (test code = 2217) 110 MG/DL BUN (test code = 2208) 10 MG/DL CREATININE (test code = 2214) 0.72 MG/DL eGFR (2020 CKD-EPI) (test code = 13425) 103 ML/MIN/1.73 CALC BUN/CREAT (test code = 2235) 14 RATIO SODIUM (test code = 2231) 128 MEQ/L POTASSIUM (test code = 2228) 4.4 MEQ/L CHLORIDE (test code = 2215) 94 MEQ/L CARBON DIOXIDE (test code = 2206) 23 MEQ/L CALCIUM (test code = 2209) 9.3 MG/DL PROTEIN, TOTAL (test code = 2229) 7.1 G/DL ALBUMIN (test code = 2201) 4.4 G/DL CALC GLOBULIN (test code = 2240) 2.7 G/DL CALC A/G RATIO (test code = 2234) 1.6 RATIO BILIRUBIN, TOTAL (test code = 2207) 1.0 MG/DL ALKALINE PHOSPHATASE (test code = 2204) 164 U/L AST (test code = 2218) 60 U/L ALT (test code = 2219) 34 U/L Chris HarrisHlbvztX-[id number] 00:00:00* Test Item Value Reference Range Interpretation Comme nts D-DIMER (test code = 1405) 0.60 UG/MLFEU Chris HarrisCBC W/AUTO [id number] 00:00:00* Test Item Value Reference Range Interpretation Comme nts WBC (test code = 1001) 4.2 K/UL RBC (test code = 1002) 3.96 M/UL HEMOGLOBIN (test code = 1003) 13.3 G/DL HEMATOCRIT (test code = 1004) 37.3 % MCV (test code = 1005) 94.2 fL MCH (test code = 1006) 33.6 PG MCHC (test code = 1007) 35.7 G/DL RDW (test code = 1038) 12.3 % NEUTROPHILS (test code = 1008) 64.3 % LYMPHOCYTES (test code = 1010) 16.1 % MONOCYTES (test code = 1011) 17.0 % EOSINOPHILS (test code = 1012) 1.2 % BASOPHILS (test code = 1013) 1.2 % IMMATURE GRANULOCYTES (test code = 1036) 0.2 % NUCLEATED RBCS (test code = 1065) 0.0 /100WBC'S PLATELET COUNT (test code = 1015) 129 K/UL ABSOLUTE NEUTROPHILS (test c ode = 1066) 2.68 K/UL ABSOLUTE LYMPHOCYTES (test c ode = 1067) 0.67 K/UL ABSOLUTE MONOCYTES (test cod e = 1068) 0.71 K/UL ABSOLUTE EOSINOPHILS (test c ode = 1040) 0.05 K/UL ABSOLUTE BASOPHILS (test cod e = 1069) 0.05 K/UL ABS IMMATURE GRANULOCYTES (t est code = 1020) 0.01 K/UL ABS NUCLEATED RBCS (test cod e = 95962) 0.00 K/UL Chris Santillan StevenCOMPREHENSIVE METABOLIC [id number] 00:00:00* Test Item Value Reference Range Interpretation Comme nts GLUCOSE (test code = 2217) 110 MG/DL BUN (test code = 2208) 10 MG/DL CREATININE (test code = 2214) 0.72 MG/DL eGFR (2020 CKD-EPI) (test code = 69296) 103 ML/MIN/1.73 CALC BUN/CREAT (test code = 2235) 14 RATIO SODIUM (test code = 2231) 128 MEQ/L POTASSIUM (test code = 2228) 4.4 MEQ/L CHLORIDE (test code = 2215) 94 MEQ/L CARBON DIOXIDE (test code = 2206) 23 MEQ/L CALCIUM (test code = 2209) 9.3 MG/DL PROTEIN, TOTAL (test code = 2229) 7.1 G/DL ALBUMIN (test code = 2201) 4.4 G/DL CALC GLOBULIN (test code = 2240) 2.7 G/DL CALC A/G RATIO (test code = 2234) 1.6 RATIO BILIRUBIN, TOTAL (test code = 2207) 1.0 MG/DL ALKALINE PHOSPHATASE (test code = 2204) 164 U/L AST (test code = 2218) 60 U/L ALT (test code = 2219) 34 U/L Chris Santillan EoyjxrD-[id number] 00:00:00* Test Item Value Reference Range Interpretation Comme nts D-DIMER (test code = 1405) 0.60 UG/MLFEU Chris Santillan StevenCOMPREHENSIVE METABOLIC [id number] 00:00:00* Test Item Value Reference Range Interpretation Comme nts GLUCOSE (test code = 2217) 113 MG/DL BUN (test code = 2208) 14 MG/DL CREATININE (test code = 2214) 0.88 MG/DL eGFR (2020 CKD-EPI) (test co de = 30395) 97 ML/MIN/1.73 CALC BUN/CREAT (test code = 2235) 16 RATIO SODIUM (test code = 2231) 139 MEQ/L POTASSIUM (test code = 2228) 4.3 MEQ/L CHLORIDE (test code = 2215) 100 MEQ/L CARBON DIOXIDE (test code = 2206) 28 MEQ/L CALCIUM (test code = 2209) 9.8 MG/DL PROTEIN, TOTAL (test code = 2229) 7.4 G/DL ALBUMIN (test code = 2201) 4.4 G/DL CALC GLOBULIN (test code = 2240) 3.0 G/DL CALC A/G RATIO (test code = 2234) 1.5 RATIO BILIRUBIN, TOTAL (test code = 2207) 1.2 MG/DL ALKALINE PHOSPHATASE (test code = 2204) 152 U/L AST (test code = 2218) 28 U/L ALT (test code = 2219) 15 U/L Chris Santillan StevenCBC W/AUTO [id number] 00:00:00* Test Item Value Reference Range Interpretation Comme nts WBC (test code = 1001) 5.4 K/UL RBC (test code = 1002) 4.27 M/UL HEMOGLOBIN (test code = 1003) 13.8 G/DL HEMATOCRIT (test code = 1004) 41.0 % MCV (test code = 1005) 96.0 fL MCH (test code = 1006) 32.3 PG MCHC (test code = 1007) 33.7 G/DL RDW (test code = 1038) 11.7 % NEUTROPHILS (test code = 1008) 66.4 % LYMPHOCYTES (test code = 1010) 16.5 % MONOCYTES (test code = 1011) 14.7 % EOSINOPHILS (test code = 1012) 1.1 % BASOPHILS (test code = 1013) 0.9 % IMMATURE GRANULOCYTES (test code = 1036) 0.4 % NUCLEATED RBCS (test code = 1065) 0.0 /100WBC'S PLATELET COUNT (test code = 1015) 169 K/UL ABSOLUTE NEUTROPHILS (test c ode = 1066) 3.61 K/UL ABSOLUTE LYMPHOCYTES (test c ode = 1067) 0.90 K/UL ABSOLUTE MONOCYTES (test cod e = 1068) 0.80 K/UL ABSOLUTE EOSINOPHILS (test c ode = 1040) 0.06 K/UL ABSOLUTE BASOPHILS (test cod e = 1069) 0.05 K/UL ABS IMMATURE GRANULOCYTES (t est code = 1020) 0.02 K/UL ABS NUCLEATED RBCS (test cod e = 16837) 0.00 K/UL Chris Santillan AejpeiEF-[id number] 00:00:00* Test Item Value Reference Range Interpretation Comme nts NT-proBNP (test code = 32485) 3922 PG/ML Chris HarrisCOMPREHENSIVE METABOLIC [id number] 00:00:00* Test Item Value Reference Range Interpretation Comme nts GLUCOSE (test code = 2217) 113 MG/DL BUN (test code = 2208) 14 MG/DL CREATININE (test code = 2214) 0.88 MG/DL eGFR (2020 CKD-EPI) (test co de = 98997) 97 ML/MIN/1.73 CALC BUN/CREAT (test code = 2235) 16 RATIO SODIUM (test code = 2231) 139 MEQ/L POTASSIUM (test code = 2228) 4.3 MEQ/L CHLORIDE (test code = 2215) 100 MEQ/L CARBON DIOXIDE (test code = 2206) 28 MEQ/L CALCIUM (test code = 2209) 9.8 MG/DL PROTEIN, TOTAL (test code = 2229) 7.4 G/DL ALBUMIN (test code = 2201) 4.4 G/DL CALC GLOBULIN (test code = 2240) 3.0 G/DL CALC A/G RATIO (test code = 2234) 1.5 RATIO BILIRUBIN, TOTAL (test code = 2207) 1.2 MG/DL ALKALINE PHOSPHATASE (test code = 2204) 152 U/L AST (test code = 2218) 28 U/L ALT (test code = 2219) 15 U/L [facility] [id number] 00:00:00* Test Item Value Reference Range Interpretation Comme nts WBC (test code = 1001) 5.4 K/UL RBC (test code = 1002) 4.27 M/UL HEMOGLOBIN (test code = 1003) 13.8 G/DL HEMATOCRIT (test code = 1004) 41.0 % MCV (test code = 1005) 96.0 fL MCH (test code = 1006) 32.3 PG MCHC (test code = 1007) 33.7 G/DL RDW (test code = 1038) 11.7 % NEUTROPHILS (test code = 1008) 66.4 % LYMPHOCYTES (test code = 1010) 16.5 % MONOCYTES (test code = 1011) 14.7 % EOSINOPHILS (test code = 1012) 1.1 % BASOPHILS (test code = 1013) 0.9 % IMMATURE GRANULOCYTES (test code = 1036) 0.4 % NUCLEATED RBCS (test code = 1065) 0.0 /100WBC'S PLATELET COUNT (test code = 1015) 169 K/UL ABSOLUTE NEUTROPHILS (test c ode = 1066) 3.61 K/UL ABSOLUTE LYMPHOCYTES (test c ode = 1067) 0.90 K/UL ABSOLUTE MONOCYTES (test cod e = 1068) 0.80 K/UL ABSOLUTE EOSINOPHILS (test c ode = 1040) 0.06 K/UL ABSOLUTE BASOPHILS (test cod e = 1069) 0.05 K/UL ABS IMMATURE GRANULOCYTES (t est code = 1020) 0.02 K/UL ABS NUCLEATED RBCS (test cod e = 66541) 0.00 K/UL Chris HarrisMvhcwtZN-[id number] 00:00:00* Test Item Value Reference Range Interpretation Comme nts NT-proBNP (test code = 20683) 3922 PG/ML Chris HarrisCOMPREHENSIVE METABOLIC [id number] 00:00:00* Test Item Value Reference Range Interpretation Comme nts GLUCOSE (test code = 2217) 113 MG/DL BUN (test code = 2208) 14 MG/DL CREATININE (test code = 2214) 0.88 MG/DL eGFR (2020 CKD-EPI) (test co de = 01054) 97 ML/MIN/1.73 CALC BUN/CREAT (test code = 2235) 16 RATIO SODIUM (test code = 2231) 139 MEQ/L POTASSIUM (test code = 2228) 4.3 MEQ/L CHLORIDE (test code = 2215) 100 MEQ/L CARBON DIOXIDE (test code = 2206) 28 MEQ/L CALCIUM (test code = 2209) 9.8 MG/DL PROTEIN, TOTAL (test code = 2229) 7.4 G/DL ALBUMIN (test code = 2201) 4.4 G/DL CALC GLOBULIN (test code = 2240) 3.0 G/DL CALC A/G RATIO (test code = 2234) 1.5 RATIO BILIRUBIN, TOTAL (test code = 2207) 1.2 MG/DL ALKALINE PHOSPHATASE (test code = 2204) 152 U/L AST (test code = 2218) 28 U/L ALT (test code = 2219) 15 U/L Chris HarrisCBC W/AUTO [id number] 00:00:00* Test Item Value Reference Range Interpretation Comme nts WBC (test code = 1001) 5.4 K/UL RBC (test code = 1002) 4.27 M/UL HEMOGLOBIN (test code = 1003) 13.8 G/DL HEMATOCRIT (test code = 1004) 41.0 % MCV (test code = 1005) 96.0 fL MCH (test code = 1006) 32.3 PG MCHC (test code = 1007) 33.7 G/DL RDW (test code = 1038) 11.7 % NEUTROPHILS (test code = 1008) 66.4 % LYMPHOCYTES (test code = 1010) 16.5 % MONOCYTES (test code = 1011) 14.7 % EOSINOPHILS (test code = 1012) 1.1 % BASOPHILS (test code = 1013) 0.9 % IMMATURE GRANULOCYTES (test code = 1036) 0.4 % NUCLEATED RBCS (test code = 1065) 0.0 /100WBC'S PLATELET COUNT (test code = 1015) 169 K/UL ABSOLUTE NEUTROPHILS (test c ode = 1066) 3.61 K/UL ABSOLUTE LYMPHOCYTES (test c ode = 1067) 0.90 K/UL ABSOLUTE MONOCYTES (test cod e = 1068) 0.80 K/UL ABSOLUTE EOSINOPHILS (test c ode = 1040) 0.06 K/UL ABSOLUTE BASOPHILS (test cod e = 1069) 0.05 K/UL ABS IMMATURE GRANULOCYTES (t est code = 1020) 0.02 K/UL ABS NUCLEATED RBCS (test cod e = 45094) 0.00 K/UL Chris HarrisQmdkepPW-[id number] 00:00:00* Test Item Value Reference Range Interpretation Comme nts NT-proBNP (test code = 26528) 3922 PG/ML Chris HarrisCOMPREHENSIVE METABOLIC [id number] 00:00:00* Test Item Value Reference Range Interpretation Comme nts GLUCOSE (test code = 2217) 113 MG/DL BUN (test code = 2208) 14 MG/DL CREATININE (test code = 2214) 0.88 MG/DL eGFR (2020 CKD-EPI) (test co de = 18782) 97 ML/MIN/1.73 CALC BUN/CREAT (test code = 2235) 16 RATIO SODIUM (test code = 2231) 139 MEQ/L POTASSIUM (test code = 2228) 4.3 MEQ/L CHLORIDE (test code = 2215) 100 MEQ/L CARBON DIOXIDE (test code = 2206) 28 MEQ/L CALCIUM (test code = 2209) 9.8 MG/DL PROTEIN, TOTAL (test code = 2229) 7.4 G/DL ALBUMIN (test code = 2201) 4.4 G/DL CALC GLOBULIN (test code = 2240) 3.0 G/DL CALC A/G RATIO (test code = 2234) 1.5 RATIO BILIRUBIN, TOTAL (test code = 2207) 1.2 MG/DL ALKALINE PHOSPHATASE (test code = 2204) 152 U/L AST (test code = 2218) 28 U/L ALT (test code = 2219) 15 U/L Chris HarrisCBC W/AUTO [id number] 00:00:00* Test Item Value Reference Range Interpretation Comme nts WBC (test code = 1001) 5.4 K/UL RBC (test code = 1002) 4.27 M/UL HEMOGLOBIN (test code = 1003) 13.8 G/DL HEMATOCRIT (test code = 1004) 41.0 % MCV (test code = 1005) 96.0 fL MCH (test code = 1006) 32.3 PG MCHC (test code = 1007) 33.7 G/DL RDW (test code = 1038) 11.7 % NEUTROPHILS (test code = 1008) 66.4 % LYMPHOCYTES (test code = 1010) 16.5 % MONOCYTES (test code = 1011) 14.7 % EOSINOPHILS (test code = 1012) 1.1 % BASOPHILS (test code = 1013) 0.9 % IMMATURE GRANULOCYTES (test code = 1036) 0.4 % NUCLEATED RBCS (test code = 1065) 0.0 /100WBC'S PLATELET COUNT (test code = 1015) 169 K/UL ABSOLUTE NEUTROPHILS (test c ode = 1066) 3.61 K/UL ABSOLUTE LYMPHOCYTES (test c ode = 1067) 0.90 K/UL ABSOLUTE MONOCYTES (test cod e = 1068) 0.80 K/UL ABSOLUTE EOSINOPHILS (test c ode = 1040) 0.06 K/UL ABSOLUTE BASOPHILS (test cod e = 1069) 0.05 K/UL ABS IMMATURE GRANULOCYTES (t est code = 1020) 0.02 K/UL ABS NUCLEATED RBCS (test cod e = 68967) 0.00 K/UL Chris HarrisUwlvrwFR-[id number] 00:00:00* Test Item Value Reference Range Interpretation Comme nts NT-proBNP (test code = 96021) 3922 PG/ML Chris HarrisCOMPREHENSIVE METABOLIC [id number] 00:00:00* Test Item Value Reference Range Interpretation Comme nts GLUCOSE (test code = 2217) 113 MG/DL BUN (test code = 2208) 14 MG/DL CREATININE (test code = 2214) 0.88 MG/DL eGFR (2020 CKD-EPI) (test co de = 68454) 97 ML/MIN/1.73 CALC BUN/CREAT (test code = 2235) 16 RATIO SODIUM (test code = 2231) 139 MEQ/L POTASSIUM (test code = 2228) 4.3 MEQ/L CHLORIDE (test code = 2215) 100 MEQ/L CARBON DIOXIDE (test code = 2206) 28 MEQ/L CALCIUM (test code = 2209) 9.8 MG/DL PROTEIN, TOTAL (test code = 2229) 7.4 G/DL ALBUMIN (test code = 2201) 4.4 G/DL CALC GLOBULIN (test code = 2240) 3.0 G/DL CALC A/G RATIO (test code = 2234) 1.5 RATIO BILIRUBIN, TOTAL (test code = 2207) 1.2 MG/DL ALKALINE PHOSPHATASE (test code = 2204) 152 U/L AST (test code = 2218) 28 U/L ALT (test code = 2219) 15 U/L Chris Santillan [facility] W/AUTO [id number] 00:00:00* Test Item Value Reference Range Interpretation Comme nts WBC (test code = 1001) 5.4 K/UL RBC (test code = 1002) 4.27 M/UL HEMOGLOBIN (test code = 1003) 13.8 G/DL HEMATOCRIT (test code = 1004) 41.0 % MCV (test code = 1005) 96.0 fL MCH (test code = 1006) 32.3 PG MCHC (test code = 1007) 33.7 G/DL RDW (test code = 1038) 11.7 % NEUTROPHILS (test code = 1008) 66.4 % LYMPHOCYTES (test code = 1010) 16.5 % MONOCYTES (test code = 1011) 14.7 % EOSINOPHILS (test code = 1012) 1.1 % BASOPHILS (test code = 1013) 0.9 % IMMATURE GRANULOCYTES (test code = 1036) 0.4 % NUCLEATED RBCS (test code = 1065) 0.0 /100WBC'S PLATELET COUNT (test code = 1015) 169 K/UL ABSOLUTE NEUTROPHILS (test c ode = 1066) 3.61 K/UL ABSOLUTE LYMPHOCYTES (test c ode = 1067) 0.90 K/UL ABSOLUTE MONOCYTES (test cod e = 1068) 0.80 K/UL ABSOLUTE EOSINOPHILS (test c ode = 1040) 0.06 K/UL ABSOLUTE BASOPHILS (test cod e = 1069) 0.05 K/UL ABS IMMATURE GRANULOCYTES (t est code = 1020) 0.02 K/UL ABS NUCLEATED RBCS (test cod e = 56537) 0.00 K/UL Chris HarrisJuryanUC-[id number] 00:00:00* Test Item Value Reference Range Interpretation Comme nts NT-proBNP (test code = 87781) 3922 PG/ML Chris HarrisCOMPREHENSIVE METABOLIC [id number] 00:00:00* Test Item Value Reference Range Interpretation Comme nts GLUCOSE (test code = 2217) 113 MG/DL BUN (test code = 2208) 14 MG/DL CREATININE (test code = 2214) 0.88 MG/DL eGFR (2020 CKD-EPI) (test co de = 03456) 97 ML/MIN/1.73 CALC BUN/CREAT (test code = 2235) 16 RATIO SODIUM (test code = 2231) 139 MEQ/L POTASSIUM (test code = 2228) 4.3 MEQ/L CHLORIDE (test code = 2215) 100 MEQ/L CARBON DIOXIDE (test code = 2206) 28 MEQ/L CALCIUM (test code = 2209) 9.8 MG/DL PROTEIN, TOTAL (test code = 2229) 7.4 G/DL ALBUMIN (test code = 2201) 4.4 G/DL CALC GLOBULIN (test code = 2240) 3.0 G/DL CALC A/G RATIO (test code = 2234) 1.5 RATIO BILIRUBIN, TOTAL (test code = 2207) 1.2 MG/DL ALKALINE PHOSPHATASE (test code = 2204) 152 U/L AST (test code = 2218) 28 U/L ALT (test code = 2219) 15 U/L Chris HarrisCBC W/AUTO [id number] 00:00:00* Test Item Value Reference Range Interpretation Comme nts WBC (test code = 1001) 5.4 K/UL RBC (test code = 1002) 4.27 M/UL HEMOGLOBIN (test code = 1003) 13.8 G/DL HEMATOCRIT (test code = 1004) 41.0 % MCV (test code = 1005) 96.0 fL MCH (test code = 1006) 32.3 PG MCHC (test code = 1007) 33.7 G/DL RDW (test code = 1038) 11.7 % NEUTROPHILS (test code = 1008) 66.4 % LYMPHOCYTES (test code = 1010) 16.5 % MONOCYTES (test code = 1011) 14.7 % EOSINOPHILS (test code = 1012) 1.1 % BASOPHILS (test code = 1013) 0.9 % IMMATURE GRANULOCYTES (test code = 1036) 0.4 % NUCLEATED RBCS (test code = 1065) 0.0 /100WBC'S PLATELET COUNT (test code = 1015) 169 K/UL ABSOLUTE NEUTROPHILS (test c ode = 1066) 3.61 K/UL ABSOLUTE LYMPHOCYTES (test c ode = 1067) 0.90 K/UL ABSOLUTE MONOCYTES (test cod e = 1068) 0.80 K/UL ABSOLUTE EOSINOPHILS (test c ode = 1040) 0.06 K/UL ABSOLUTE BASOPHILS (test cod e = 1069) 0.05 K/UL ABS IMMATURE GRANULOCYTES (t est code = 1020) 0.02 K/UL ABS NUCLEATED RBCS (test cod e = 54596) 0.00 K/UL Chris HarrisOdbjolZJ-[id number] 00:00:00* Test Item Value Reference Range Interpretation Comme nts NT-proBNP (test code = 28108) 3922 PG/ML Chris HarrisCOMPREHENSIVE METABOLIC [id number] 00:00:00* Test Item Value Reference Range Interpretation Comme nts GLUCOSE (test code = 2217) 113 MG/DL BUN (test code = 2208) 14 MG/DL CREATININE (test code = 2214) 0.88 MG/DL eGFR (2020 CKD-EPI) (test co de = 80485) 97 ML/MIN/1.73 CALC BUN/CREAT (test code = 2235) 16 RATIO SODIUM (test code = 2231) 139 MEQ/L POTASSIUM (test code = 2228) 4.3 MEQ/L CHLORIDE (test code = 2215) 100 MEQ/L CARBON DIOXIDE (test code = 2206) 28 MEQ/L CALCIUM (test code = 2209) 9.8 MG/DL PROTEIN, TOTAL (test code = 2229) 7.4 G/DL ALBUMIN (test code = 2201) 4.4 G/DL CALC GLOBULIN (test code = 2240) 3.0 G/DL CALC A/G RATIO (test code = 2234) 1.5 RATIO BILIRUBIN, TOTAL (test code = 2207) 1.2 MG/DL ALKALINE PHOSPHATASE (test code = 2204) 152 U/L AST (test code = 2218) 28 U/L ALT (test code = 2219) 15 U/L Chris HarrisCBC W/AUTO [id number] 00:00:00* Test Item Value Reference Range Interpretation Comme nts WBC (test code = 1001) 5.4 K/UL RBC (test code = 1002) 4.27 M/UL HEMOGLOBIN (test code = 1003) 13.8 G/DL HEMATOCRIT (test code = 1004) 41.0 % MCV (test code = 1005) 96.0 fL MCH (test code = 1006) 32.3 PG MCHC (test code = 1007) 33.7 G/DL RDW (test code = 1038) 11.7 % NEUTROPHILS (test code = 1008) 66.4 % LYMPHOCYTES (test code = 1010) 16.5 % MONOCYTES (test code = 1011) 14.7 % EOSINOPHILS (test code = 1012) 1.1 % BASOPHILS (test code = 1013) 0.9 % IMMATURE GRANULOCYTES (test code = 1036) 0.4 % NUCLEATED RBCS (test code = 1065) 0.0 /100WBC'S PLATELET COUNT (test code = 1015) 169 K/UL ABSOLUTE NEUTROPHILS (test c ode = 1066) 3.61 K/UL ABSOLUTE LYMPHOCYTES (test c ode = 1067) 0.90 K/UL ABSOLUTE MONOCYTES (test cod e = 1068) 0.80 K/UL ABSOLUTE EOSINOPHILS (test c ode = 1040) 0.06 K/UL ABSOLUTE BASOPHILS (test cod e = 1069) 0.05 K/UL ABS IMMATURE GRANULOCYTES (t est code = 1020) 0.02 K/UL ABS NUCLEATED RBCS (test cod e = 74767) 0.00 K/UL Chris HarrisEidydeYL-[id number] 00:00:00* Test Item Value Reference Range Interpretation Comme nts NT-proBNP (test code = 40558) 3922 PG/ML Chris HarrisHEMOGLOBIN [id number] 16:23:53* Test Item Value Reference Range Interpretation Comme nts HEMOGLOBIN A1c (test code = 82425) 6.3 % 4.2-5.6 H CBC W/AUTO DIFF WITH [id number] 12:32:38* Test Item Value Reference Range Interpretation Comme nts WBC (test code = 1001) 4.1 K/UL 3.5-11.0 RBC (test code = 1002) 4.73 M/UL 4.50-6.10 HEMOGLOBIN (test code = 1003) 15.3 G/DL 13.5-17.0 HEMATOCRIT (test code = 1004) 42.8 % 40.0-51.0 MCV (test code = 1005) 90.5 fL 80.0-99.0 MCH (test code = 1006) 32.3 PG 25.0-33.0 MCHC (test code = 1007) 35.7 G/DL 31.0-36.0 RDW (test code = 1038) 11.8 % 11.5-15.0 NEUTROPHILS (test code = 1008) 48.7 % LYMPHOCYTES (test code = 1010) 31.5 % MONOCYTES (test code = 1011) 16.2 % EOSINOPHILS (test code = 1012) 2.4 % BASOPHILS (test code = 1013) 1.2 % IMMATURE GRANULOCYTES (test code = 1036) 0.0 % NUCLEATED RBCS (test code = 1065) 0.0 /100 WBC'S See_Comment [Automated messa ge] The system which generated this result transmitted reference range: 0.0. The reference range was not used to interpret this result as normal/abnormal. PLATELET COUNT (test code = 1015) 158 K/UL 130-400 ABSOLUTE NEUTROPHILS (test code = 1066) 2.01 K/UL 1.50-7.50 ABSOLUTE LYMPHOCYTES (test code = 1067) 1.30 K/UL 1.00-4.00 ABSOLUTE MONOCYTES (test code = 1068) 0.67 K/UL 0.20-1.00 ABSOLUTE EOSINOPHILS (test code = 1040) 0.10 K/UL 0.00-0.50 ABSOLUTE BASOPHILS (test code = 1069) 0.05 K/UL 0.00-0.20 ABS IMMATURE GRANULOCYTES (test code = 1020) 0.00 K/UL 0.00-0.10 ABS NUCLEATED RBCS (test code = 55999) 0.00 K/UL 0.00-0.11 PSA, [id number] 05:56:21* Test Item Value Reference Range Interpretation Comme [facility] PSA, TOTAL (test code = 2606) 0.95 NG/ML See_Comment NOTE: Methodolog y is Prosper Prieto Electrochemiluminescence Immunoassay traceable to WHO reference standard 96/760. [Automated message] The system which generated this result transmitted reference range: <=4.00. The reference range was not used to interpret this result as normal/abnormal. TSH, THIRD [id number] 05:56:21* Test Item Value Reference Range Interpretation Comme [facility] TSH, THIRD GENERATION (test code = 2821) 1.490 UIU/ML 0.400-4.100 VITAMIN D, 25 [id number] 05:51:00* Test Item Value Reference Range Interpretation Comme [facility] VITAMIN D, 25 OH (test code = 4958) 31 NG/ML SEE BELOW NOTE: 25-HYDR OXYVITAMIN D ASSAY INCLUDES 25-HYDROXYVITAMIN D2 AND D3. METHODOLOGY IS CHEMILUMINESCENT IMMUNOASSAY. INTERPRETIVE RANGES PEDIATRIC (<17 YEARS) . . . . . . . . . . . NG/ML 20-100ADULT: INSUFFICIENT . . . . . . . . . . . . . . NG/ML <20 SUBOPTIMAL . . . . . . . . . . . . . . . NG/ML 20-29 OPTIMAL . . . . . . . . . . . . . . . . . NG/ML 30-100 UNLESS OTHERWISE INDICATED, ALL TESTING [facility] [address] [place] [id number] CIGAR HEAD PEGGER: ALINE OLMOS M.D. CLIA NUMBER [id number] [place]. [id number] COMPREHENSIVE METABOLIC [id number] 05:08:59* Test Item Value Reference Range Interpretation Comme [facility] GLUCOSE (test code = 2217) 98 MG/DL 70-99 BUN (test code = 2208) 12 MG/DL 8-23 CREATININE (test code = 2214) 0.85 MG/DL 0.80-1.40 eGFR (2020 CKD-EPI) (test code = 69356) 99 ML/MIN/1.73 >60 CALC BUN/CREAT (test code = 2235) 14 RATIO 6-28 SODIUM (test code = 2230) 136 MEQ/L 133-146 POTASSIUM (test code = 8) 5.3 MEQ/L 3.5-5.4 CHLORIDE (test code = 2214) 99 MEQ/L 95-107 CARBON DIOXIDE (test code = 2205) 22 MEQ/L 19-31 CALCIUM (test code = 2208) 9.5 MG/DL 8.5-10.5 PROTEIN, TOTAL (test code = 2228) 7.4 G/DL 6.1-8.3 ALBUMIN (test code = 2200) 4.4 G/DL 3.5-5.2 CALC GLOBULIN (test code = 2239) 3.0 G/DL 1.9-3.7 CALC A/G RATIO (test code = 2233) 1.5 RATIO 1.0-2.6 BILIRUBIN, TOTAL (test code = 2206) 0.7 MG/DL See_Comment [Automated me ssage] The system which generated this result transmitted reference range: <=1.2. The reference range was not used to interpret this result as normal/abnormal. ALKALINE PHOSPHATASE (test code = 2203) 125 U/L 40-123 H AST (test code = 2217) 39 U/L 9-50 ALT (test code = 2218) 22 U/L 5-50 URIC [id number] 05:08:59* Test Item Value Reference Range Interpretation Comme nts URIC ACID (test code = 3) 7.2 MG/DL 3.7-8.0 LIPID [id number] 05:08:59* Test Item Value Reference Range Interpretation Comme nts CHOLESTEROL (test code = 2210) 175 MG/DL <200 TRIGLYCERIDES (test code = 2232) 77 MG/DL <150 HDL CHOLESTEROL (test code = 2220) 96 MG/DL >39 CALC LDL CHOL (test code = 223) 63 MG/DL <100 NOTE: CALCULATED LDL IS BASED ON JEAN-RUBIO METHOD WHICHINCLUDES ADJUSTABLE TRIGLYCERIDE:VLDL CHOLESTEROL RATIO.THIS FACTOR VARIES BY MEASURED TRIGLYCERIDE AND NON-HDLCHOLESTEROL CONCENTRATIONS WITH INCREASED CALCULATED LDL SEENIN HIGHER TRIGLYCERIDE OR LOWER NON-HDL SPECIMENS. FOR MOREINFORMATION, SEE CLIENT ANNOUNCEMENT AT [email or web address] RISK RATIO LDL/HDL (test code = 2238) 0.66 RATIO <3.55 VITAMIN D, 25 [id number] 00:00:00* Test Item Value Reference Range Interpretation Comme nts VITAMIN D, 25 OH (test code = 4958) 31 NG/ML COMPREHENSIVE METABOLIC [id number] 00:00:00* Test Item Value Reference Range Interpretation Comme nts GLUCOSE (test code = 2217) 98 MG/DL BUN (test code = 2208) 12 MG/DL CREATININE (test code = 2214) 0.85 MG/DL eGFR (2020 CKD-EPI) (test co de = 90016) 99 ML/MIN/1.73 CALC BUN/CREAT (test code = 2235) 14 RATIO SODIUM (test code = 2231) 136 MEQ/L POTASSIUM (test code = 2228) 5.3 MEQ/L CHLORIDE (test code = 2215) 99 MEQ/L CARBON DIOXIDE (test code = 2206) 22 MEQ/L CALCIUM (test code = 2209) 9.5 MG/DL PROTEIN, TOTAL (test code = 2229) 7.4 G/DL ALBUMIN (test code = 2201) 4.4 G/DL CALC GLOBULIN (test code = 2240) 3.0 G/DL CALC A/G RATIO (test code = 2234) 1.5 RATIO BILIRUBIN, TOTAL (test code = 2207) 0.7 MG/DL ALKALINE PHOSPHATASE (test code = 2204) 125 U/L AST (test code = 2218) 39 U/L ALT (test code = 2219) 22 U/L LIPID [id number] 00:00:00* Test Item Value Reference Range Interpretation Comme nts CHOLESTEROL (test code = 2210) 175 MG/DL TRIGLYCERIDES (test code = 2232) 77 MG/DL HDL CHOLESTEROL (test code = 2220) 96 MG/DL CALC LDL CHOL (test code = 2237) 63 MG/DL RISK RATIO LDL/HDL (test cod e = 2238) 0.66 RATIO CBC W/AUTO [id number] 00:00:00* Test Item Value Reference Range Interpretation Comme nts WBC (test code = 1001) 4.1 K/UL RBC (test code = 1002) 4.73 M/UL HEMOGLOBIN (test code = 1003) 15.3 G/DL HEMATOCRIT (test code = 1004) 42.8 % MCV (test code = 1005) 90.5 fL MCH (test code = 1006) 32.3 PG MCHC (test code = 1007) 35.7 G/DL RDW (test code = 1038) 11.8 % NEUTROPHILS (test code = 1008) 48.7 % LYMPHOCYTES (test code = 1010) 31.5 % MONOCYTES (test code = 1011) 16.2 % EOSINOPHILS (test code = 1012) 2.4 % BASOPHILS (test code = 1013) 1.2 % IMMATURE GRANULOCYTES (test code = 1036) 0.0 % NUCLEATED RBCS (test code = 1065) 0.0 /100WBC'S PLATELET COUNT (test code = 1015) 158 K/UL ABSOLUTE NEUTROPHILS (test c ode = 1066) 2.01 K/UL ABSOLUTE LYMPHOCYTES (test c ode = 1067) 1.30 K/UL ABSOLUTE MONOCYTES (test cod e = 1068) 0.67 K/UL ABSOLUTE EOSINOPHILS (test c ode = 1040) 0.10 K/UL ABSOLUTE BASOPHILS (test cod e = 1069) 0.05 K/UL ABS IMMATURE GRANULOCYTES (t est code = 1020) 0.00 K/UL ABS NUCLEATED RBCS (test cod e = 45593) 0.00 K/UL HEMOGLOBIN [id number] 00:00:00* Test Item Value Reference Range Interpretation Comme [facility] HEMOGLOBIN A1c (test code = 65698) 6.3 % PSA, [id number] 00:00:00* Test Item Value Reference Range Interpretation Comme nts PSA, TOTAL (test code = 2606) 0.95 NG/ML [id number] 00:00:00* Test Item Value Reference Range Interpretation Comme nts TSH, THIRD GENERATION (test code = 2821) 1.490 UIU/ML URIC [id number] 00:00:00* Test Item Value Reference Range Interpretation Comme nts URIC ACID (test code = 2233) 7.2 MG/DL [id number] 00:00:00* Test Item Value Reference Range Interpretation Comme nts TSH, THIRD GENERATION (test code = 2821) 1.490 UIU/ML Chris F AustinURIC [id number] 00:00:00* Test Item Value Reference Range Interpretation Comme nts URIC ACID (test code = 2233) 7.2 MG/DL Chris HarrisVITAMIN D, 25 [id number] 00:00:00* Test Item Value Reference Range Interpretation Comme nts VITAMIN D, 25 OH (test code = 4958) 31 NG/ML Chris HarrisCOMPREHENSIVE METABOLIC [id number] 00:00:00* Test Item Value Reference Range Interpretation Comme nts GLUCOSE (test code = 2217) 98 MG/DL BUN (test code = 2208) 12 MG/DL CREATININE (test code = 2214) 0.85 MG/DL eGFR (2020 CKD-EPI) (test co de = 32220) 99 ML/MIN/1.73 CALC BUN/CREAT (test code = 2235) 14 RATIO SODIUM (test code = 2231) 136 MEQ/L POTASSIUM (test code = 2228) 5.3 MEQ/L CHLORIDE (test code = 2215) 99 MEQ/L CARBON DIOXIDE (test code = 2206) 22 MEQ/L CALCIUM (test code = 2209) 9.5 MG/DL PROTEIN, TOTAL (test code = 2229) 7.4 G/DL ALBUMIN (test code = 2201) 4.4 G/DL CALC GLOBULIN (test code = 2240) 3.0 G/DL CALC A/G RATIO (test code = 2234) 1.5 RATIO BILIRUBIN, TOTAL (test code = 2207) 0.7 MG/DL ALKALINE PHOSPHATASE (test code = 2204) 125 U/L AST (test code = 2218) 39 U/L ALT (test code = 2219) 22 U/L Chris HarrisLIPID [id number] 00:00:00* Test Item Value Reference Range Interpretation Comme nts CHOLESTEROL (test code = 2210) 175 MG/DL TRIGLYCERIDES (test code = 2232) 77 MG/DL HDL CHOLESTEROL (test code = 2220) 96 MG/DL CALC LDL CHOL (test code = 2237) 63 MG/DL RISK RATIO LDL/HDL (test cod e = 2238) 0.66 RATIO Chris HarrisCBC W/AUTO [id number] 00:00:00* Test Item Value Reference Range Interpretation Comme nts WBC (test code = 1001) 4.1 K/UL RBC (test code = 1002) 4.73 M/UL HEMOGLOBIN (test code = 1003) 15.3 G/DL HEMATOCRIT (test code = 1004) 42.8 % MCV (test code = 1005) 90.5 fL MCH (test code = 1006) 32.3 PG MCHC (test code = 1007) 35.7 G/DL RDW (test code = 1038) 11.8 % NEUTROPHILS (test code = 1008) 48.7 % LYMPHOCYTES (test code = 1010) 31.5 % MONOCYTES (test code = 1011) 16.2 % EOSINOPHILS (test code = 1012) 2.4 % BASOPHILS (test code = 1013) 1.2 % IMMATURE GRANULOCYTES (test code = 1036) 0.0 % NUCLEATED RBCS (test code = 1065) 0.0 /100WBC'S PLATELET COUNT (test code = 1015) 158 K/UL ABSOLUTE NEUTROPHILS (test c ode = 1066) 2.01 K/UL ABSOLUTE LYMPHOCYTES (test c ode = 1067) 1.30 K/UL ABSOLUTE MONOCYTES (test cod e = 1068) 0.67 K/UL ABSOLUTE EOSINOPHILS (test c ode = 1040) 0.10 K/UL ABSOLUTE BASOPHILS (test cod e = 1069) 0.05 K/UL ABS IMMATURE GRANULOCYTES (t est code = 1020) 0.00 K/UL ABS NUCLEATED RBCS (test cod e = 69979) 0.00 K/UL Chris HarrisHEMOGLOBIN [id number] 00:00:00* Test Item Value Reference Range Interpretation Comme [facility] HEMOGLOBIN A1c (test code = 10779) 6.3 % Chris HarrisPSA, [id number] 00:00:00* Test Item Value Reference Range Interpretation Comme [facility] PSA, TOTAL (test code = 2606) 0.95 NG/ML Chris [id number] 00:00:00* Test Item Value Reference Range Interpretation Comme nts TSH, THIRD GENERATION (test code = 2821) 1.490 UIU/ML Chris HarrisURIC [id number] 00:00:00* Test Item Value Reference Range Interpretation Comme [facility] URIC ACID (test code = 2233) 7.2 MG/DL Chris HarrisVITAMIN D, 25 [id number] 00:00:00* Test Item Value Reference Range Interpretation Comme nts VITAMIN D, 25 OH (test code = 4958) 31 NG/ML Chris HarrisCOMPREHENSIVE METABOLIC [id number] 00:00:00* Test Item Value Reference Range Interpretation Comme nts GLUCOSE (test code = 2217) 98 MG/DL BUN (test code = 2208) 12 MG/DL CREATININE (test code = 2214) 0.85 MG/DL eGFR (2020 CKD-EPI) (test co de = 65874) 99 ML/MIN/1.73 CALC BUN/CREAT (test code = 2235) 14 RATIO SODIUM (test code = 2231) 136 MEQ/L POTASSIUM (test code = 2228) 5.3 MEQ/L CHLORIDE (test code = 2215) 99 MEQ/L CARBON DIOXIDE (test code = 2206) 22 MEQ/L CALCIUM (test code = 2209) 9.5 MG/DL PROTEIN, TOTAL (test code = 2229) 7.4 G/DL ALBUMIN (test code = 2201) 4.4 G/DL CALC GLOBULIN (test code = 2240) 3.0 G/DL CALC A/G RATIO (test code = 2234) 1.5 RATIO BILIRUBIN, TOTAL (test code = 2207) 0.7 MG/DL ALKALINE PHOSPHATASE (test code = 2204) 125 U/L AST (test code = 2218) 39 U/L ALT (test code = 2219) 22 U/L Chris HarrisLIPID [id number] 00:00:00* Test Item Value Reference Range Interpretation Comme nts CHOLESTEROL (test code = 2210) 175 MG/DL TRIGLYCERIDES (test code = 2232) 77 MG/DL HDL CHOLESTEROL (test code = 2220) 96 MG/DL CALC LDL CHOL (test code = 2237) 63 MG/DL RISK RATIO LDL/HDL (test cod e = 2238) 0.66 RATIO Chris HarrisCBC W/AUTO [id number] 00:00:00* Test Item Value Reference Range Interpretation Comme nts WBC (test code = 1001) 4.1 K/UL RBC (test code = 1002) 4.73 M/UL HEMOGLOBIN (test code = 1003) 15.3 G/DL HEMATOCRIT (test code = 1004) 42.8 % MCV (test code = 1005) 90.5 fL MCH (test code = 1006) 32.3 PG MCHC (test code = 1007) 35.7 G/DL RDW (test code = 1038) 11.8 % NEUTROPHILS (test code = 1008) 48.7 % LYMPHOCYTES (test code = 1010) 31.5 % MONOCYTES (test code = 1011) 16.2 % EOSINOPHILS (test code = 1012) 2.4 % BASOPHILS (test code = 1013) 1.2 % IMMATURE GRANULOCYTES (test code = 1036) 0.0 % NUCLEATED RBCS (test code = 1065) 0.0 /100WBC'S PLATELET COUNT (test code = 1015) 158 K/UL ABSOLUTE NEUTROPHILS (test c ode = 1066) 2.01 K/UL ABSOLUTE LYMPHOCYTES (test c ode = 1067) 1.30 K/UL ABSOLUTE MONOCYTES (test cod e = 1068) 0.67 K/UL ABSOLUTE EOSINOPHILS (test c ode = 1040) 0.10 K/UL ABSOLUTE BASOPHILS (test cod e = 1069) 0.05 K/UL ABS IMMATURE GRANULOCYTES (t est code = 1020) 0.00 K/UL ABS NUCLEATED RBCS (test cod e = 44527) 0.00 K/UL Chris HarrisHEMOGLOBIN [id number] 00:00:00* Test Item Value Reference Range Interpretation Comme [facility] HEMOGLOBIN A1c (test code = 08032) 6.3 % Chris HarrisPSA, [id number] 00:00:00* Test Item Value Reference Range Interpretation Comme [facility] PSA, TOTAL (test code = 2606) 0.95 NG/ML Chris [id number] 00:00:00* Test Item Value Reference Range Interpretation Comme nts TSH, THIRD GENERATION (test code = 2821) 1.490 UIU/ML Chris HarrisURIC [id number] 00:00:00* Test Item Value Reference Range Interpretation Comme [facility] URIC ACID (test code = 2233) 7.2 MG/DL Chris HarrisVITAMIN D, 25 [id number] 00:00:00* Test Item Value Reference Range Interpretation Comme [facility] VITAMIN D, 25 OH (test code = 4958) 31 NG/ML Chris HarrisCOMPREHENSIVE METABOLIC [id number] 00:00:00* Test Item Value Reference Range Interpretation Comme nts GLUCOSE (test code = 2217) 98 MG/DL BUN (test code = 2208) 12 MG/DL CREATININE (test code = 2214) 0.85 MG/DL eGFR (2020 CKD-EPI) (test co de = 32801) 99 ML/MIN/1.73 CALC BUN/CREAT (test code = 2235) 14 RATIO SODIUM (test code = 2231) 136 MEQ/L POTASSIUM (test code = 2228) 5.3 MEQ/L CHLORIDE (test code = 2215) 99 MEQ/L CARBON DIOXIDE (test code = 2206) 22 MEQ/L CALCIUM (test code = 2209) 9.5 MG/DL PROTEIN, TOTAL (test code = 2229) 7.4 G/DL ALBUMIN (test code = 2201) 4.4 G/DL CALC GLOBULIN (test code = 2240) 3.0 G/DL CALC A/G RATIO (test code = 2234) 1.5 RATIO BILIRUBIN, TOTAL (test code = 2207) 0.7 MG/DL ALKALINE PHOSPHATASE (test code = 2204) 125 U/L AST (test code = 2218) 39 U/L ALT (test code = 2219) 22 U/L Chris HarrisLIPID [id number] 00:00:00* Test Item Value Reference Range Interpretation Comme nts CHOLESTEROL (test code = 2210) 175 MG/DL TRIGLYCERIDES (test code = 2232) 77 MG/DL HDL CHOLESTEROL (test code = 2220) 96 MG/DL CALC LDL CHOL (test code = 2237) 63 MG/DL RISK RATIO LDL/HDL (test cod e = 2238) 0.66 RATIO Chris HarrisCBC W/AUTO [id number] 00:00:00* Test Item Value Reference Range Interpretation Comme nts WBC (test code = 1001) 4.1 K/UL RBC (test code = 1002) 4.73 M/UL HEMOGLOBIN (test code = 1003) 15.3 G/DL HEMATOCRIT (test code = 1004) 42.8 % MCV (test code = 1005) 90.5 fL MCH (test code = 1006) 32.3 PG MCHC (test code = 1007) 35.7 G/DL RDW (test code = 1038) 11.8 % NEUTROPHILS (test code = 1008) 48.7 % LYMPHOCYTES (test code = 1010) 31.5 % MONOCYTES (test code = 1011) 16.2 % EOSINOPHILS (test code = 1012) 2.4 % BASOPHILS (test code = 1013) 1.2 % IMMATURE GRANULOCYTES (test code = 1036) 0.0 % NUCLEATED RBCS (test code = 1065) 0.0 /100WBC'S PLATELET COUNT (test code = 1015) 158 K/UL ABSOLUTE NEUTROPHILS (test c ode = 1066) 2.01 K/UL ABSOLUTE LYMPHOCYTES (test c ode = 1067) 1.30 K/UL ABSOLUTE MONOCYTES (test cod e = 1068) 0.67 K/UL ABSOLUTE EOSINOPHILS (test c ode = 1040) 0.10 K/UL ABSOLUTE BASOPHILS (test cod e = 1069) 0.05 K/UL ABS IMMATURE GRANULOCYTES (t est code = 1020) 0.00 K/UL ABS NUCLEATED RBCS (test cod e = 72168) 0.00 K/UL Chris HarrisHEMOGLOBIN [id number] 00:00:00* Test Item Value Reference Range Interpretation Comme [facility] HEMOGLOBIN A1c (test code = 25476) 6.3 % Chris HarrisPSA, [id number] 00:00:00* Test Item Value Reference Range Interpretation Comme nts PSA, TOTAL (test code = 2606) 0.95 NG/ML Chris [id number] 00:00:00* Test Item Value Reference Range Interpretation Comme [facility] TSH, THIRD GENERATION (test code = 2821) 1.490 UIU/ML Chris HarrisURIC [id number] 00:00:00* Test Item Value Reference Range Interpretation Comme nts URIC ACID (test code = 2233) 7.2 MG/DL Chris HarrisVITAMIN D, 25 [id number] 00:00:00* Test Item Value Reference Range Interpretation Comme nts VITAMIN D, 25 OH (test code = 4958) 31 NG/ML Chris HarrisCOMPREHENSIVE METABOLIC [id number] 00:00:00* Test Item Value Reference Range Interpretation Comme nts GLUCOSE (test code = 2217) 98 MG/DL BUN (test code = 2208) 12 MG/DL CREATININE (test code = 2214) 0.85 MG/DL eGFR (2020 CKD-EPI) (test co de = 67849) 99 ML/MIN/1.73 CALC BUN/CREAT (test code = 2235) 14 RATIO SODIUM (test code = 2231) 136 MEQ/L POTASSIUM (test code = 2228) 5.3 MEQ/L CHLORIDE (test code = 2215) 99 MEQ/L CARBON DIOXIDE (test code = 2206) 22 MEQ/L CALCIUM (test code = 2209) 9.5 MG/DL PROTEIN, TOTAL (test code = 2229) 7.4 G/DL ALBUMIN (test code = 2201) 4.4 G/DL CALC GLOBULIN (test code = 2240) 3.0 G/DL CALC A/G RATIO (test code = 2234) 1.5 RATIO BILIRUBIN, TOTAL (test code = 2207) 0.7 MG/DL ALKALINE PHOSPHATASE (test code = 2204) 125 U/L AST (test code = 2218) 39 U/L ALT (test code = 2219) 22 U/L Chris HarrisLIPID [id number] 00:00:00* Test Item Value Reference Range Interpretation Comme nts CHOLESTEROL (test code = 2210) 175 MG/DL TRIGLYCERIDES (test code = 2232) 77 MG/DL HDL CHOLESTEROL (test code = 2220) 96 MG/DL CALC LDL CHOL (test code = 2237) 63 MG/DL RISK RATIO LDL/HDL (test cod e = 2238) 0.66 RATIO Chrisclara HarrisCBC W/AUTO [id number] 00:00:00* Test Item Value Reference Range Interpretation Comme nts WBC (test code = 1001) 4.1 K/UL RBC (test code = 1002) 4.73 M/UL HEMOGLOBIN (test code = 1003) 15.3 G/DL HEMATOCRIT (test code = 1004) 42.8 % MCV (test code = 1005) 90.5 fL MCH (test code = 1006) 32.3 PG MCHC (test code = 1007) 35.7 G/DL RDW (test code = 1038) 11.8 % NEUTROPHILS (test code = 1008) 48.7 % LYMPHOCYTES (test code = 1010) 31.5 % MONOCYTES (test code = 1011) 16.2 % EOSINOPHILS (test code = 1012) 2.4 % BASOPHILS (test code = 1013) 1.2 % IMMATURE GRANULOCYTES (test code = 1036) 0.0 % NUCLEATED RBCS (test code = 1065) 0.0 /100WBC'S PLATELET COUNT (test code = 1015) 158 K/UL ABSOLUTE NEUTROPHILS (test c ode = 1066) 2.01 K/UL ABSOLUTE LYMPHOCYTES (test c ode = 1067) 1.30 K/UL ABSOLUTE MONOCYTES (test cod e = 1068) 0.67 K/UL ABSOLUTE EOSINOPHILS (test c ode = 1040) 0.10 K/UL ABSOLUTE BASOPHILS (test cod e = 1069) 0.05 K/UL ABS IMMATURE GRANULOCYTES (t est code = 1020) 0.00 K/UL ABS NUCLEATED RBCS (test cod e = 31760) 0.00 K/UL Chris HarrisHEMOGLOBIN [id number] 00:00:00* Test Item Value Reference Range Interpretation Comme [place] HEMOGLOBIN A1c (test code = 07207) 6.3 % Chris HarrisPSA, [id number] 00:00:00* Test Item Value Reference Range Interpretation Comme [facility] PSA, TOTAL (test code = 2606) 0.95 NG/ML Chris [id number] 00:00:00* Test Item Value Reference Range Interpretation Comme [facility] TSH, THIRD GENERATION (test code = 2821) 1.490 UIU/ML Chris HarrisURIC [id number] 00:00:00* Test Item Value Reference Range Interpretation Comme [place] URIC ACID (test code = 2233) 7.2 MG/DL Chris HarrisVITAMIN D, 25 [id number] 00:00:00* Test Item Value Reference Range Interpretation Comme [facility] VITAMIN D, 25 OH (test code = 4958) 31 NG/ML Chris HarrisCOMPREHENSIVE METABOLIC [id number] 00:00:00* Test Item Value Reference Range Interpretation Comme nts GLUCOSE (test code = 2217) 98 MG/DL BUN (test code = 2208) 12 MG/DL CREATININE (test code = 2214) 0.85 MG/DL eGFR (2020 CKD-EPI) (test co de = 15025) 99 ML/MIN/1.73 CALC BUN/CREAT (test code = 2235) 14 RATIO SODIUM (test code = 2231) 136 MEQ/L POTASSIUM (test code = 2228) 5.3 MEQ/L CHLORIDE (test code = 2215) 99 MEQ/L CARBON DIOXIDE (test code = 2206) 22 MEQ/L CALCIUM (test code = 2209) 9.5 MG/DL PROTEIN, TOTAL (test code = 2229) 7.4 G/DL ALBUMIN (test code = 2201) 4.4 G/DL CALC GLOBULIN (test code = 2240) 3.0 G/DL CALC A/G RATIO (test code = 2234) 1.5 RATIO BILIRUBIN, TOTAL (test code = 2207) 0.7 MG/DL ALKALINE PHOSPHATASE (test code = 2204) 125 U/L AST (test code = 2218) 39 U/L ALT (test code = 2219) 22 U/L Chris HarrisLIPID [id number] 00:00:00* Test Item Value Reference Range Interpretation Comme nts CHOLESTEROL (test code = 2210) 175 MG/DL TRIGLYCERIDES (test code = 2232) 77 MG/DL HDL CHOLESTEROL (test code = 2220) 96 MG/DL CALC LDL CHOL (test code = 2237) 63 MG/DL RISK RATIO LDL/HDL (test cod e = 2238) 0.66 RATIO Chris Santillan StevenCBC W/AUTO [id number] 00:00:00* Test Item Value Reference Range Interpretation Comme nts WBC (test code = 1001) 4.1 K/UL RBC (test code = 1002) 4.73 M/UL HEMOGLOBIN (test code = 1003) 15.3 G/DL HEMATOCRIT (test code = 1004) 42.8 % MCV (test code = 1005) 90.5 fL MCH (test code = 1006) 32.3 PG MCHC (test code = 1007) 35.7 G/DL RDW (test code = 1038) 11.8 % NEUTROPHILS (test code = 1008) 48.7 % LYMPHOCYTES (test code = 1010) 31.5 % MONOCYTES (test code = 1011) 16.2 % EOSINOPHILS (test code = 1012) 2.4 % BASOPHILS (test code = 1013) 1.2 % IMMATURE GRANULOCYTES (test code = 1036) 0.0 % NUCLEATED RBCS (test code = 1065) 0.0 /100WBC'S PLATELET COUNT (test code = 1015) 158 K/UL ABSOLUTE NEUTROPHILS (test c ode = 1066) 2.01 K/UL ABSOLUTE LYMPHOCYTES (test c ode = 1067) 1.30 K/UL ABSOLUTE MONOCYTES (test cod e = 1068) 0.67 K/UL ABSOLUTE EOSINOPHILS (test c ode = 1040) 0.10 K/UL ABSOLUTE BASOPHILS (test cod e = 1069) 0.05 K/UL ABS IMMATURE GRANULOCYTES (t est code = 1020) 0.00 K/UL ABS NUCLEATED RBCS (test cod e = 58022) 0.00 K/UL Chris HarrisHEMOGLOBIN [id number] 00:00:00* Test Item Value Reference Range Interpretation Comme paola HEMOGLOBIN A1c (test code = 46107) 6.3 % Chris HarrisPSA, [id number] 00:00:00* Test Item Value Reference Range Interpretation Comme paola PSA, TOTAL (test code = 2606) 0.95 NG/ML Chris [id number] 00:00:00* Test Item Value Reference Range Interpretation Comme paola TSH, THIRD GENERATION (test code = 2821) 1.490 UIU/ML Chris HarrisURIC [id number] 00:00:00* Test Item Value Reference Range Interpretation Comme paola URIC ACID (test code = 2233) 7.2 MG/DL Chris HarrisVITAMIN D, 25 [id number] 00:00:00* Test Item Value Reference Range Interpretation Comme [facility] VITAMIN D, 25 OH (test code = 4958) 31 NG/ML Chris HarrisCOMPREHENSIVE METABOLIC [id number] 00:00:00* Test Item Value Reference Range Interpretation Comme nts GLUCOSE (test code = 2217) 98 MG/DL BUN (test code = 2208) 12 MG/DL CREATININE (test code = 2214) 0.85 MG/DL eGFR (2020 CKD-EPI) (test co de = 39327) 99 ML/MIN/1.73 CALC BUN/CREAT (test code = 2235) 14 RATIO SODIUM (test code = 2231) 136 MEQ/L POTASSIUM (test code = 2228) 5.3 MEQ/L CHLORIDE (test code = 2215) 99 MEQ/L CARBON DIOXIDE (test code = 2206) 22 MEQ/L CALCIUM (test code = 2209) 9.5 MG/DL PROTEIN, TOTAL (test code = 2229) 7.4 G/DL ALBUMIN (test code = 2201) 4.4 G/DL CALC GLOBULIN (test code = 2240) 3.0 G/DL CALC A/G RATIO (test code = 2234) 1.5 RATIO BILIRUBIN, TOTAL (test code = 2207) 0.7 MG/DL ALKALINE PHOSPHATASE (test code = 2204) 125 U/L AST (test code = 2218) 39 U/L ALT (test code = 2219) 22 U/L Chris HarrisLIPID [id number] 00:00:00* Test Item Value Reference Range Interpretation Comme nts CHOLESTEROL (test code = 2210) 175 MG/DL TRIGLYCERIDES (test code = 2232) 77 MG/DL HDL CHOLESTEROL (test code = 2220) 96 MG/DL CALC LDL CHOL (test code = 2237) 63 MG/DL RISK RATIO LDL/HDL (test cod e = 2238) 0.66 RATIO Chris HarrisCBC W/AUTO [id number] 00:00:00* Test Item Value Reference Range Interpretation Comme nts WBC (test code = 1001) 4.1 K/UL RBC (test code = 1002) 4.73 M/UL HEMOGLOBIN (test code = 1003) 15.3 G/DL HEMATOCRIT (test code = 1004) 42.8 % MCV (test code = 1005) 90.5 fL MCH (test code = 1006) 32.3 PG MCHC (test code = 1007) 35.7 G/DL RDW (test code = 1038) 11.8 % NEUTROPHILS (test code = 1008) 48.7 % LYMPHOCYTES (test code = 1010) 31.5 % MONOCYTES (test code = 1011) 16.2 % EOSINOPHILS (test code = 1012) 2.4 % BASOPHILS (test code = 1013) 1.2 % IMMATURE GRANULOCYTES (test code = 1036) 0.0 % NUCLEATED RBCS (test code = 1065) 0.0 /100WBC'S PLATELET COUNT (test code = 1015) 158 K/UL ABSOLUTE NEUTROPHILS (test c ode = 1066) 2.01 K/UL ABSOLUTE LYMPHOCYTES (test c ode = 1067) 1.30 K/UL ABSOLUTE MONOCYTES (test cod e = 1068) 0.67 K/UL ABSOLUTE EOSINOPHILS (test c ode = 1040) 0.10 K/UL ABSOLUTE BASOPHILS (test cod e = 1069) 0.05 K/UL ABS IMMATURE GRANULOCYTES (t est code = 1020) 0.00 K/UL ABS NUCLEATED RBCS (test cod e = 66046) 0.00 K/UL Chris HarrisHEMOGLOBIN [id number] 00:00:00* Test Item Value Reference Range Interpretation Comme paola HEMOGLOBIN A1c (test code = 88832) 6.3 % Chris HarrisPSA, [id number] 00:00:00* Test Item Value Reference Range Interpretation Comme paola PSA, TOTAL (test code = 2606) 0.95 NG/ML Chris [id number] 00:00:00* Test Item Value Reference Range Interpretation Comme paola TSH, THIRD GENERATION (test code = 2821) 1.490 UIU/ML Chris HarrisURIC [id number] 00:00:00* Test Item Value Reference Range Interpretation Comme paola URIC ACID (test code = 2233) 7.2 MG/DL Chris HarrisVITAMIN D, 25 [id number] 00:00:00* Test Item Value Reference Range Interpretation Comme paola VITAMIN D, 25 OH (test code = 4958) 31 NG/ML Chris HarrisCOMPREHENSIVE METABOLIC [id number] 00:00:00* Test Item Value Reference Range Interpretation Comme nts GLUCOSE (test code = 2217) 98 MG/DL BUN (test code = 2208) 12 MG/DL CREATININE (test code = 2214) 0.85 MG/DL eGFR (2020 CKD-EPI) (test co de = 53759) 99 ML/MIN/1.73 CALC BUN/CREAT (test code = 2235) 14 RATIO SODIUM (test code = 2231) 136 MEQ/L POTASSIUM (test code = 2228) 5.3 MEQ/L CHLORIDE (test code = 2215) 99 MEQ/L CARBON DIOXIDE (test code = 2206) 22 MEQ/L CALCIUM (test code = 2209) 9.5 MG/DL PROTEIN, TOTAL (test code = 2229) 7.4 G/DL ALBUMIN (test code = 2201) 4.4 G/DL CALC GLOBULIN (test code = 2240) 3.0 G/DL CALC A/G RATIO (test code = 2234) 1.5 RATIO BILIRUBIN, TOTAL (test code = 2207) 0.7 MG/DL ALKALINE PHOSPHATASE (test code = 2204) 125 U/L AST (test code = 2218) 39 U/L ALT (test code = 2219) 22 U/L Chris HarrisLIPID [id number] 00:00:00* Test Item Value Reference Range Interpretation Comme nts CHOLESTEROL (test code = 2210) 175 MG/DL TRIGLYCERIDES (test code = 2232) 77 MG/DL HDL CHOLESTEROL (test code = 2220) 96 MG/DL CALC LDL CHOL (test code = 2237) 63 MG/DL RISK RATIO LDL/HDL (test cod e = 2238) 0.66 RATIO Chris HarrisCBC W/AUTO [id number] 00:00:00* Test Item Value Reference Range Interpretation Comme nts WBC (test code = 1001) 4.1 K/UL RBC (test code = 1002) 4.73 M/UL HEMOGLOBIN (test code = 1003) 15.3 G/DL HEMATOCRIT (test code = 1004) 42.8 % MCV (test code = 1005) 90.5 fL MCH (test code = 1006) 32.3 PG MCHC (test code = 1007) 35.7 G/DL RDW (test code = 1038) 11.8 % NEUTROPHILS (test code = 1008) 48.7 % LYMPHOCYTES (test code = 1010) 31.5 % MONOCYTES (test code = 1011) 16.2 % EOSINOPHILS (test code = 1012) 2.4 % BASOPHILS (test code = 1013) 1.2 % IMMATURE GRANULOCYTES (test code = 1036) 0.0 % NUCLEATED RBCS (test code = 1065) 0.0 /100WBC'S PLATELET COUNT (test code = 1015) 158 K/UL ABSOLUTE NEUTROPHILS (test c ode = 1066) 2.01 K/UL ABSOLUTE LYMPHOCYTES (test c ode = 1067) 1.30 K/UL ABSOLUTE MONOCYTES (test cod e = 1068) 0.67 K/UL ABSOLUTE EOSINOPHILS (test c ode = 1040) 0.10 K/UL ABSOLUTE BASOPHILS (test cod e = 1069) 0.05 K/UL ABS IMMATURE GRANULOCYTES (t est code = 1020) 0.00 K/UL ABS NUCLEATED RBCS (test cod e = 45905) 0.00 K/UL Chris HarrisHEMOGLOBIN [id number] 00:00:00* Test Item Value Reference Range Interpretation Comme nts HEMOGLOBIN A1c (test code = 61007) 6.3 % Chris HarrisPSA, [id number] 00:00:00* Test Item Value Reference Range Interpretation Comme nts PSA, TOTAL (test code = 2606) 0.95 NG/ML Chris HarrisUS SCROTUM AND [id number] 15:05:22ULTRASOUND OF THE TESTES HISTORY: ? Hydrocele in adult TECHNIQUE: Sonographic evaluation of the scrotum and its contents isperformed in multiple planes without and with color Doppler imaging. FINDINGS: The testes are normal in size, shape and echotexture. The right testismeasures 4.1 x 2.4 x 2.2 cmwith volume of 11.2 mL and left testis measures4.6 x 2.6 x 3.3 cm with volume of 20.6 mL. 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 Small amount of fluid is present in the right scrotal sac. There is a largecomplex hypoechoic mass in the left testis with multiple septations. Themass measures 5.3 x 4.4 cm in size. No increased va scularity is noted. Themass causes significant pressure on the left testes. The right epididymis measures 1.1 x 0.9 x 0.7 cm and the left epididymismeasures 1.0 x 2.1 x 0.7 cm. Slightly increased blood flow is seen to theleft epididymis. A varicocele is seen on the right. CONCLUSIONS: 1. Slightly increased blood flow to the left testes and epididymis withslightly increased size of the testis may represent epididymoorchitis.Please correlate2. A well-circumscribed 3.3 x 4.4 cm complex hypoechoic mass in the rightscrotal sac causes pressure on the left testis. This may represent acomplex spermatocele or potentially a complex hydrocele. Further evaluationshould be considered with MRI of the scrotum.3. Right varicocele [facility], Radiant Results Inft User - 10/11/2019 9:06 AM CSTULTRASOUND OF THE TESTESHISTORY: Hydrocele in adult TECHNIQUE: Sonographic evaluation of the scrotum and its contents isperformed in multiple planes without and with color Doppler imaging.FINDINGS:The testes are normal in size, shape and echotexture. The right testismeasures 4.1 x 2.4 x 2.2 cm with volume of 11.2 mL and left testis measures4.6 x 2.6 x 3.3 cm with volume of 20.6 mL.A well-circumscribed anechoic lesion is present in the right testismeasuring 2 x 2 x 2 mm likely representing a tunica albuginea cystThe blood flow to the left testis is slightly increased compared to theright.Small amount of fluid is p resent in the right scrotal sac. There is a largecomplex hypoechoic mass in the left testis with multiple septations. Themass measures 5.3 x 4.4 cm in size. No increased vascularity is noted. Themasscauses significant pressure on the left testes.The right epididymis measures 1.1 x 0.9 x 0.7 cm andthe left epididymismeasures 1.0 x 2.1 x 0.7 cm. Slightly increased blood flow is seen to theleft epididymis.A varicocele is seen on the right.CONCLUSIONS: 1. Slightly increased blood flow to the lefttestes and epididymis withslightly increased size of the testis may represent epididymoorchitis.Please correlate2. A well- circumscribed 3.3 x 4.4 cm complex hypoechoic mass in the rightscrotal sac cau ses pressure on the left testis. This may represent acomplex spermatocele or potentially a complex hydrocele. Further evaluationshould be considered with MRI of the scrotum.3. [facility] History and Physical Notes Date/Time Note Provider Source 2024-01-13 09:14:18 MICU H&P Date of Service: 01/13/2024 13:35 Name: Nate Nobles : 1960 Age: [age] year old ICU day: 1 Intubation Day: N/A Transferred from: [facility] ED Code Status: Code Status: Full Code CC: Swelling in the legs Reason for ICU admission: Hyponatremia in the setting of possible exacerbation of his HF HISTORY OF PRESENT ILLNESS Nate Nobles is a 63 year old male w/ pmhx of ?CHF, pre-diabetes, HLD, and HTN, who presented to the [facility] ED for swelling in the legs. Pt stated that he has been feeling progressively worse over the past few months, patient follows up with OSH providers however unclear if he has consistent follow-up, last note from cardiology was with [facility] Dr. Martines back in July 2023 where he was noted to have some signs of left heart failure, suggested further workup however patient did not obtain it. Of note patient stated that the swelling has been getting worse extending all the way to his upper thighs, he also endorsed having some cough that is nonproductive that can get productive of some sputum some occasional shortness of breath and some orthopnea. Patient denies fevers, chills, nausea, vomiting, dysuria or chest pain. On arrival, afebrile BP: 180/102, SPO2: 98 on RA, requiring no for blood pressure support. Of note patient was noted to be hyponatremic at [facility] ED, 117 no signs of dizziness headache, WBC not elevated, NT proBNP 5880, troponin 0.038, EKG within normal limits. Patient also had an elevated T. bili of 2.2, alk phos 239. However previously on chart review patient had elevated T. bili and alk phos. Chest x-ray shows pulmonary vascular congestion. No advanced directive or assigned MPOA on file. PAST MEDICAL HISTORY History reviewed. No pertinent past medical history. PAST SURGICAL HISTORY History reviewed. No pertinent surgical history. FAMILY HISTORY No family history on file. SOCIAL HISTORY Social History Socioeconomic History Marital status: Tobacco Use Smoking status: Every Day Types: Cigarettes Passive exposure: Past Smokeless tobacco: Never ALLERGIES No Known Allergies REVIEW OF SYSTEMS Negative except the above in the HPI PHYSICAL EXAMINATION Vitals: 01/13/24 1052 01/13/24 1100 01/13/24 1200 01/13/24 1230 BP: 135/75 (!) 146/71 129/68 120/63 Pulse: 56 59 52 (!) 49 Resp: 14 15 14 13 Temp: 35.9 ?C (96.6 ?F) TempSrc: Oral SpO2: 100% 99% 99% 99% Weight: Height: Constitutional: alert and oriented x 4 (person, place, date/time, and situation); no apparent distress HEENT: normocephalic atraumatic Neck: JVD Resp: crackles BL Cardio: regular rate and rhythm GI: soft; non-tender; non-distended; normoactive bowel sounds : not examined Rectal: not examined MSK: edema +2 BL into the Thighs Integ: no rashes Neuro: no focal deficits Labs (pertinent only)/Imaging: Reviewed US ABDOMEN LIMITED Result Date: 01/13/2024 Impression: Contracted gallbladder secondary to nonfasting state. This decreases sensitivity of examination for cholecystitis. No gallstones are seen. Repeat fasting study can be obtained if clinically indicated. Sonographic appearance of the liver may be secondary to developing cirrhosis. Clinical correlation is necessary. R Ordering physician: GARLAND NIETO CHEST 1 VW Result Date: 01/13/2024 1. Cardiomegaly is present with pulmonary vascular congestion. RL: [id number] Microbiology: N/A Assessment/Plan: Nate Nobles is a 63 year old male admitted with Cardiovascular CHF Exacerbation Cough 2/2 likely post nasal drip BL Edema to the thighs HTN | HLD Presenting w/ signs of Volume overload from CHF exacerbation, CXR concerning for pulmonary congestion, diuresing well w/ IV lasix, given presentation will obtain TTE, pt likely will require ischemic workup, will trend the trop - Cardiac diet, EKG qAM and PRN chest pain, Telemetry, O2 per protocol, Electrolytes: Keep K >4, Mg>2 - aPTT, PT/INR, CBC, BMP, LFTs, Lipase, Mag, Phos, TSH, A1c, UA, UDS, NT-proBNP, Iron panel/ Ferritin, fasting Lipid panel in AM - Trend Troponin I x 3 - IV lasix, titrate as needed - Cetirizine - Control BP w/ Hydralazine - Consider Heparin bolus + drip as needed - Asa 325 mg po x 1 then Asa 81 mg po daily - Hold home Coreg - Hold Spironolactone - TTE Renal Hyponatremia Hypomagnesemia Pt presented with hyponatremia, which has since been improving with diuresis, will c/t w/ current plan, and replete electrolyte and adjust as needed, will also obtain urine studies - Monitor electrolyte - Strict I/O - Urine studies - UA GI Elevated T-Bili Elevated Alk Phost Pt w/ elevated T-bili of 2.2, on OSH review of records seem to have persistent higher level but not quiet as high as this, could be due to possible congestive hepatopathy, LFTs not as elevated but will c/t trend, expect improvement given the lack of physical examination - Trend LFTs - Trend T-Bili - Abd US Endo Pre-diabetes - A1c - Monitor Glucose Respiratory No active issues - C/t monitor O2 status ID No active issues Neuro No active issue Other Dispo: TBD Prognosis: Guarded DVT prophylaxis: heparin Stress ulcer prophylaxis: Others: None Code Status: FULL Salinas Barber MD, MSc Department of Internal Medicine, PGY3 Associated attestation - Garland Nieto MD - 01/13/2024 3:05 PM CDT Attending History Supplement: I personally examined the patient on 01/13/[address] Barber's resident note as written. I actively participated in the decision-making process. Please see the resident's note for additional details. Nate Nobles is a 63 year old male with HTN and chronic systolic heart failure admitted with symptomatic hyponatremia (Na 117) and acute worsening of heart failure. Started iv diuretic therapy and resume antihypertensive therapy. Obtain echo and consult cardiology. Monitoring serum Na and continue diuretic therapy [facility] Procedure Notes Date/Time Note Provider Source 2024-01-18 15:27:32 PCI/Atherectomy/IVUS Date of Service: 01/18/2024 3:27 PM Indication/Diagnosis: 63 y M with PMH of HTN, HLD, pre-DM who p/w SOB and LE edema, felt to be CHF. Also had hyponatemia. TTE showed mildly reduced EF (40-45%). Trop 0.04. LHC showed mid/distal Lcx disease, mod LAD and severe calcified RCA disease. After discussion given mod LAD disease, we decided to perform PCI of RCA with rotational atherectomy. Fellow: Dr Carlton Time out completed: yes Aseptic technique: Chlorprep Local Anesthesia: 1% lidocaine without epinephrine Sedation: fentanyl 100 mcg, Versed 4 mg, benadryl 50 Access site: right radial artery Closure Method: Mynx civil engineering draftsperson TR Band Complications: none Procedure Details: PCI 6/7 Fr right radial Artery 7 Fr AL 0.75 to RCA RT with corsair to PDA (needed spinning to deliver corsair) Rota floppy 1.5 darrius prox 2 runs, mid 4-5 runs BMW IVUS did not deliver all the way Predil 3.5 x 15 NC Stent 3.5 x 38 xience Stent 3.5 x 33 mm xience Postdil 3.5 x 30 NC IVUS (2 underexpanded segments) Postdil with 4.0 x 12 NC Prox RCA slight underexpansion Final angiogram TR band. 220 cc contrast Post-Procedure Sedation Addendum Immediately prior to start of sedation, the patient was evaluated and there was no change from the pre-procedure evaluation. I was present and directed medical care. The patient underwent moderate sedation for the procedure. The medications administered were recorded in the MAR; oxygenation, ventilation and circulation were monitored continuously and were recorded in the EMR. I evaluated the patient after the procedure. The patient was evaluated immediately as recovering from sedation. Complications: none Findings: Coronary dominance: right RCA: Proximal: 50% diffuse calcified (s/p rotational atherectomy and PCI) Mid: heavily calcified 70% disease (s/p rotational atherectomy and PCI) Distal: Mild athero PDA: Mild athero PLB: Mild athero Impression: Prox and mid RCA heavily calcified severe disease s/p rotational atherectomy and PCI Plan: NS 1 ml/kg/hr for 3 hours Plavix 300 at 1999, followed by 75 daily starting tomorrow Aspirin 81 daily lifelong GDMT for LV dysfunction Aggressive medical Rx Findings and plan discussed with pt and primary team. I performed this procedure and supervised the fellow. I was present for the entire duration of the procedure. Alanna Jeffries MD 01/18/2024 3:27 PM [facility] 2024-01-17 14:01:49 Right/Left Heart Cath/Coronary Angiography Nate Nobles Date of Service: 01/17/2024 2:02 PM Attending faculty: Alanna Jeffries MD Fellow: Ken Dorado MD, Kajal Kumar MD Referring Physician: Risa Woodward DO Procedures Performed: Right heart catheterization Left heart catheterization Coronary Angiogram Indication/Diagnosis: 63 y M with PMH of HTN, HLD, pre-DM who p/w SOB and LE edema, felt to be CHF. Also had hyponatemia. TTE showed mildly reduced EF (40-45%). Trop 0.04. Consent source: self Consent type: indications/complications discussed with patient/legal guardian; written consent obtained Time out completed: yes Aseptic technique: Chlorprep Local Anesthesia: 1% lidocaine without epinephrine Sedation: fentanyl 50 mcg, Versed 2 mg Access site: Arterial: Right radial artery Venous: Right internal jugular vein Closure Method: Arterial: TR band Venous: Perclose Sterile dressing: yes Complications: none Procedures: The patient arrived the photo lab manager in fasting state. After patient identification/verification, the patient was thereafter transferred onto the photo lab manager table. The access site was prepped and draped in usual sterile fashion. After administering sedation, time out was done. Under ultrasound guidance, using Seldinger technique, the Right radial artery was accessed and a 6 Fr Slender sheath was introduced into the artery. Under ultrasound guidance, the Right internal jugular vein was accessed and a 7 Fr sheath was introduced A5 Fr JL 3.5 catheter was used to cannulate the LM. Selective coronary angiography was done using several views. A 5 Fr JR 4.0 was used to cross the AV with the J wire and the catheter was advanced into the LV where selective LVEDP was measured. The catheter was then used to cannulate the RCA and selective coronary angiography was done using multiple views. A 7 Fr Point Clear Anthony catheter was used to obtain RA/RV/PA and PCWP and for CO measurement. The attending physician was present throughout the procedure and provided the highest level of supervision. Findings: Coronary dominance: right Left main: Mild Athero LAD: Proximal: 40% diffused calcified disease Mid: Mild Athero Distal: wraps around apex, apical segment has 60% disease D1: large artery, mild athero, gives small to medium size branch which has proximal mild disease D2: Small RI: Small LCX: Ostial 30-40% disease Mid: 60% disease Distal: 70% disease OM1: Large artery with proximal diffuse 60% calcified disease OM2: Moderate athero RCA: Proximal: 50% diffuse calcified Mid: heavily calcified 70% disease Distal: Mild athero PDA: Mild athero PLB: Mild athero LVEDP: 16 mmHg Grafts: RHC: RA mean 8 mmHg RV 49/3 mmHg PA 51/18 mmHg (mean PA 29 mmHg) PCWP mean 16 mmHg CO 9.54 L/min (Emelyn's method) CI 4.83 L/min/m2 (Emelyn's method) CO 6.15 L/min (Thermodilution technique) CI 3.11 L/min/m2 (Thermodilution technique) TPG 16 mmHg PA sat: 74% RA sat: 77% Post-Procedure Sedation Addendum Immediately prior to start of sedation, the patient was evaluated and there was no change from the pre-procedure evaluation. I was present and directed medical care. The patient underwent moderate sedation for the procedure. The medications administered were recorded in the MAR; oxygenation, ventilation and circulation were monitored continuously and were recorded in the EMR. I evaluated the patient after the procedure. The patient was evaluated immediately as recovering from sedation. Complications: None Impression: Mid RCA 70% calcified Mid/distal Lcx 60-70% Moderate LAD disease Normal left and right sided filling pressures Normal cardiac output and index Plan: Staged PCI to RCA once electrolytes are improved Medical Rx for LAD/Lcx for now Aggressive medical management for CAD Ken Dorado MD PGY-6, Card Tape Converter Operator Pager: [phone] Associated attestation - Alanna Jeffries MD - 01/17/2024 6:50 PM CDT I performed this procedure and supervised the fellow. I was present for the entire duration of the procedure. IM-CARDIOVASCULAR DISEASE [facility] - Health Notes Date/Time Note Provider Source Chris Irvin [facility]2025-03-27 11:02:29 Chief Complaint Patient presents with Edema Edema to both legs. Did not take the furosemide Anahi Stack LVN [facility]2024-11-22 00:00:00 [facility]2024-11-06 00:00:00 [facility]2024-10-02 00:00:00 [facility]2024-08-07 00:00:00 [facility]2024-06-17 00:00:00 [facility]2024-05-17 13:56:11 Care Management Discharge Disposition Note (DCDN) 5-2-1 Interventions: Disease specific education, Teach back, Follow-up phone calls, Follow-up appointments, Clear discharge plan 5-2-1 Providers: Physician, Unit Clerk/Toe Laster 5-2-1 Patient Capacity Improvements: Avoidance of adverse events/readmission Discussed with patient/patient’s family involved in decision making: Patient or family caregiver understands, and agrees with discharge plan Patient's family or support contact: Nhung Nobles (spouse) [phone] Discharge Plan for ongoing care and services: Home/Caregiver Home, Other Discharge Location: Home/Caregiver address: [address] [place] [address] Transportation: Private Vehicle (Nhung Nobles (spouse) [phone]) Discharge Medications Will the patient be able to obtain his medications? Yes Does the patient have transportation to to obtain the prescription medications? Yes Expected discharge date: 01/19/24 Time: 1600 Name of RN informed of discharge: Min RN Additional Information: n/a CM/SW Name: May Briceno RN The following information has been provided to the facility noted above: reason for the patient discharge or transfer; patient’s physical and psychosocial status; summary of care, treatment, services provided to patient; and the patient progress toward goals. [id number]:57:54 Problem: Cardiac Output - Decreased Goal: Cardiac output within specified parameters Outcome: Progressing as expected Goal: Absence of signs and symptoms of decreased cardiac output Outcome: Progressing as expected Problem: Discharge Planning Goal: Adequate for discharge Outcome: Progressing as expected Goal: Adequate to move to next level of care Outcome: Progressing as expected Goal: Knowledge of medication management Outcome: Progressing as expected Problem: Falls, Risk of Goal: Absence of falls Outcome: Progressing as expected Problem: Pain Goal: Control of pain at or below patient's documented comfort goal Outcome: Progressing as expected Goal: Reduction in pain sensation Outcome: Progressing as expected Problem: Bleeding, Risk of Goal: Absence of impaired coagulation signs and symptoms Outcome: Progressing as expected Goal: Absence of active bleeding Outcome: Progressing as expected Problem: Procedure Routine Goal: Absence of post-procedure complications Outcome: Progressing as expected Goal: Knowledge of procedure Outcome: Progressing as expected [id number]16:58 Problem: Cardiac Output - Decreased Goal: Cardiac output within specified parameters Outcome: Progressing as expected Goal: Absence of signs and symptoms of decreased cardiac output Outcome: Progressing as expected Problem: Discharge Planning Goal: Adequate for discharge Outcome: Progressing as expected Goal: Adequate to move to next level of care Outcome: Progressing as expected Goal: Knowledge of medication management Outcome: Progressing as expected Problem: Falls, Risk of Goal: Absence of falls Outcome: Progressing as expected Problem: Pain Goal: Control of pain at or below patient's documented comfort goal Outcome: Progressing as expected Goal: Reduction in pain sensation Outcome: Progressing as expected Problem: Bleeding, Risk of Goal: Absence of impaired coagulation signs and symptoms Outcome: Progressing as expected Goal: Absence of active bleeding Outcome: Progressing as expected Problem: Procedure Routine Goal: Absence of post-procedure complications Outcome: Progressing as expected Goal: Knowledge of procedure Outcome: Progressing as expected [facility] - [id number] 22:18:00 TR Band at right radial cath site removed without complications. Pulses palpable. No hematoma or active bleed noted at this time. Site dressed with gauze and Tegaderm dressing. Arm board and TEVIN wrap in place. 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 TR Band in place in right radial, pt tolerated treatment well. Pt at bedside. Ana Blas [place] [id number] 11:16:48 Resident MD rounding and verbalized that okay to hold lovenox if pt is going for PCI today. [id number] 07:32:16 Problem: Cardiac Output - Decreased Goal: Cardiac output within specified parameters Outcome: Progressing as expected Goal: Absence of signs and symptoms of decreased cardiac output Outcome: Progressing as expected [facility] [id number] 15:00:00 Left unit in stable condition via bed with transportation personnel at side. [facility] 11:37:31 Problem: Cardiac Output - Decreased Goal: Cardiac output within specified parameters Outcome: Progressing as expected Goal: Absence of signs and symptoms of decreased cardiac output Outcome: Progressing as expected Problem: Discharge Planning Goal: Adequate for discharge Outcome: Progressing as expected Goal: Adequate to move to next level of care Outcome: Progressing as expected Goal: Knowledge of medication management Outcome: Progressing as expected Problem: Falls, Risk of Goal: Absence of falls Outcome: Progressing as expected Problem: Pain Goal: Control of pain at or below patient's documented comfort goal Outcome: Progressing as expected Goal: Reduction in pain sensation Outcome: Progressing as expected [id number] 00:51:23 Problem: Cardiac Output - Decreased Goal: Cardiac output within specified parameters Outcome: Progressing as expected Goal: Absence of signs and symptoms of decreased cardiac output Outcome: Progressing as expected Problem: Discharge Planning Goal: Adequate for discharge Outcome: Progressing as expected Goal: Adequate to move to next level of care Outcome: Progressing as expected Goal: Knowledge of medication management Outcome: Progressing as expected Problem: Falls, Risk of Goal: Absence of falls Outcome: Progressing as expected Problem: Pain Goal: Control of pain at or below patient's documented comfort goal Outcome: Progressing as expected Goal: Reduction in pain sensation Outcome: Progressing as expected Edmundo Justin [id number] 07:51:52 Problem: Cardiac Output - Decreased Goal: Cardiac output within specified parameters Outcome: Progressing as expected Goal: Absence of signs and symptoms of decreased cardiac output Outcome: Progressing as expected Problem: Discharge Planning Goal: Adequate for discharge Outcome: Progressing as expected Goal: Adequate to move to next level of care Outcome: Progressing as expected Goal: Knowledge of medication management Outcome: Progressing as expected Problem: Falls, Risk of Goal: Absence of falls Outcome: Progressing as expected Problem: Pain Goal: Control of pain at or below patient's documented comfort goal Outcome: Progressing as expected Goal: Reduction in pain sensation Outcome: Progressing as expected [facility]mers [id number] 00:23:46 Problem: Cardiac Output - Decreased Goal: Cardiac output within specified parameters Outcome: Progressing as expected Goal: Absence of signs and symptoms of decreased cardiac output Outcome: Progressing as expected Problem: Discharge Planning Goal: Adequate for discharge Outcome: Progressing as expected Goal: Adequate to move to next level of care Outcome: Progressing as expected Goal: Knowledge of medication management Outcome: Progressing as expected Problem: Falls, Risk of Goal: Absence of falls Outcome: Progressing as expected Problem: Pain Goal: Control of pain at or below patient's documented comfort goal Outcome: Progressing as expected Goal: Reduction in pain sensation Outcome: Progressing as expected [facility]2024-05-13 05:59:57 Problem: Cardiac Output - Decreased Goal: Cardiac output within specified parameters Outcome: Progressing as expected Goal: Absence of signs and symptoms of decreased cardiac output Outcome: Progressing as expected [place] [id number] 07:26:02 Report given to [facility]. T Anjelica [facility]agan [id number] 06:56:11 Report to Anjelica FUENTES [place] [id number] 06:53:06 Spoke with REMBERTO Dominique ETA 20 min T [facility] 03:38:05 Lower extremity swelling, saw PCP yesterday, scheduled to see vascular doctor on Monday. Came in tonight because swelling is getting higher. HX: CHF Ana Beckman [facility]pe[facility]6422-[facility]-02 03:24:00 Associated Order(s): EKG-12 Lead ROUTINE ONCE Pre-Procedure Diagnose(s): Leg swelling Post-Procedure Diagnose(s): Leg swelling [facility] Emergency Department Note Patient Name: Nate Nobles Date of : 1960 63 year old male Treatment Room: TX4/TX4 Primary Care Physician: Vadim Trevizo Patient Escorted by: Family [5] Mode of Arrival: Personal means [1] EMS Treatment Prior to ED Arrival: [employer] treatment: None Travel and Exposure Screening: Symptoms Does patient have any of these symptoms?: (not recorded) Exposure Screening Has patient had contact with someone with a communicable disease in the last month?: (not recorded) Diseases exposed to:: (not recorded) Is Patient ?: (not recorded) Exposure Date: (not recorded) Chief Complaint: Chief Complaint Patient presents with LEG SWELLING History of Present Illness: The patient presents from home with his for evaluation for slowly worsening swelling of his bilateral legs over the past several weeks. He reports swelling seems to be better in the morning when he awakens and is worse in the evening after he has been up on them all day long. He also complains of some shortness of breath when he tries to lie flat. He reports he normally uses 2 pillows at night to sleep for the past several nights he has not slept well due to his breathing. No chest pain or pressure. He does have a history of congestive heart failure and takes Lasix and Aldactone daily. He admits to pretty good compliance with his medication and did take them yesterday. He is mostly compliant with a low-salt diet. No history of diabetes. No sick contacts. No cough or fever. Here for evaluation. Past Medical History/Immunizations: History reviewed. No pertinent past medical history. Tetanus received in last 5 years: No Childhood immunizations: Up-to-date Allergies: No Known Allergies Past Social History: Tobacco Use Every Day; Types: Cigarettes Passive Exposure: Past Smokeless Tobacco: Never used smokeless tobacco. Past Surgical History: History reviewed. No pertinent surgical history. Review of Systems: Review of Systems Constitutional: Negative for chills and fever. Respiratory: Positive for shortness of breath. Negative for cough. Cardiovascular: Positive for leg swelling. Gastrointestinal: Negative for abdominal pain and vomiting. Genitourinary: Negative for dysuria. Musculoskeletal: Negative for arthralgias, neck pain and neck stiffness. Skin: Negative for wound. Neurological: Negative for dizziness. Psychiatric/Behavioral: Negative for agitation. Endocrine: Negative for goiter. Physical Exam: ED Triage Vitals [01/13/24 0339] Weight 87.5 kg (193 lb) Actual or estimated Estimated by patient/family report Height 1.803 m (5' 11") BP (!) 199/108 Pulse 70 Resp 20 Temp 36.6 ?C (97.8 ?F) Temp source Oral SpO2 96 % Measured on Room air Physical Exam Vitals and nursing note reviewed. Constitutional: Appearance: Normal appearance. He is obese. HENT: Head: Normocephalic and atraumatic. Cardiovascular: Rate and Rhythm: Normal rate and regular rhythm. Pulmonary: Effort: Pulmonary effort is normal. No respiratory distress. Breath sounds: Rales present. No wheezing. Comments: Rales bilateral bases. The patient is able to speak in full and complete sentences without difficulty. No use of accessory muscles. Abdominal: General: There is no distension. Palpations: Abdomen is soft. There is no mass. Tenderness: There is no abdominal tenderness. There is no guarding. Musculoskeletal: Cervical back: Normal range of motion and neck supple. Right lower leg: Edema present. Left lower leg: Edema present. Skin: General: Skin is warm and dry. Neurological: General: No focal deficit present. Mental Status: He is alert and oriented to person, place, and time. Radiology: XR CHEST 1 VW Final Result Study: Single view chest. Ordering Physician: RISA WOODWARD Date: 01/13/2024 4:15 AM History:Shortness of breath. COMPARISON: None. Findings: Single frontal view chest demonstrates mild cardiomegaly. Pulmonary vascular congestion is present. No definite infiltrate, pleural effusion or pneumothorax is present. No acute osseous abnormality is demonstrated. IMPRESSION 1. Cardiomegaly is present with pulmonary vascular congestion. RL: [id number] Lab Results: Lab Results CBC WITH DIFF - Abnormal Result Value Ref Range WBC 3.78 (*) 4.20 - 10.70 10*3/?L RBC 4.02 (*) 4.26 - 5.52 10*6/?L HGB 13.5 12.2 - 16.4 g/dL HCT 37.7 (*) 38.4 - 49.3 % MCV 93.8 81.7 - 95.6 fL MCH 33.6 (*) 26.1 - 32.7 pg MCHC 35.8 (*) 31.2 - 35.0 g/dL RDW-SD 42.4 38.5 - 51.6 fL RDW-CV 12.3 12.1 - 15.4 % PLT 113 (*) 150 - 328 10*3/?L MPV 10.3 9.8 - 13.0 fL IPF % 5.7 1.2 - 10.7 % NRBC/100 WBC 0.0 0.0 - 10.0 /100 WBCs NRBC x103<0.01 10*3/?L SEG % 31 (*) 33 - 76 % BAND % 14 (*) 0 - 1 % LYMPH % 39 14 - 54 % REACT LYMPH % 3 % MONO % 12 (*) 0 - 4 % EOS % 1 0 - 3 % ANC 1.70 (*) 1.99 - 6.95 10*3/uL COMP. METABOLIC PANEL (91683) - Abnormal NA 117 (*) 135 - 145 mmol/L K 4.7 3.5 - 5.0 mmol/L CL 88 (*) 98 - 108 mmol/L CO2 TOTAL 23 23 - 31 mmol/L AGAP 6 2 - 16 BUN 15 7 - 23 mg/dL GLUCOSE 90 70 - 110 mg/dL CREATININE 0.64 0.60 - 1.25 mg/dL TOTAL BILI 2.2 (*) 0.1 - 1.1 mg/dL CALCIUM 8.6 8.6 - 10.6 mg/dL T PROTEIN 7.6 6.3 - 8.2 g/dL ALBUMIN 4.0 3.5 - 5.0 g/dL ALK PHOS 239 (*) 34 - 122 U/L ALTv 39 5 - 50 U/L AST(SGOT) 81 (*) 13 - 40 U/L eGFR 106.4 mL/min/1.73m2 TROPONIN I - Abnormal TROPONIN I 0.038 (*) <=0.034 ng/mL N-TERMINAL PRO-BNP - Abnormal NT-proBNP 5,880 (*) <=125 pg/mL BASIC METABOLIC PANEL (NA, K, CL, CO2, GLUCOSE, BUN, CREATININE, CA) - Abnormal NA 119 (*) 135 - 145 mmol/L K 4.9 3.5 - 5.0 mmol/L CL 86 (*) 98 - 108 mmol/L CO2 TOTAL 24 23 - 31 mmol/L AGAP 9 2 - 16 BUN 15 7 - 23 mg/dL GLUCOSE 93 70 - 110 mg/dL CREATININE 0.64 0.60 - 1.25 mg/dL CALCIUM 9.0 8.6 - 10.6 mg/dL eGFR 106.4 mL/min/1.73m2 MAGNESIUM - Normal MAGNESIUM 1.7 1.7 - 2.4 mg/dL EKG: If EKG completed, see Procedure Note. Orders and Treatments: Orders Placed This Encounter Procedures XR CHEST 1 VW CBC WITH DIFF COMP. METABOLIC PANEL (35730) TROPONIN I N-TERMINAL PRO-BNP Magnesium BASIC METABOLIC PANEL (NA, K, CL, CO2, GLUCOSE, BUN, CREATININE, CA) Orders Placed This Encounter Medications furosemide (LASIX) injection 40 mg aspirin chewable tablet 324 mg hydralAZINE (APRESOLINE) injection 10 mg First Provider Eval: ED Events Date/Time Event User Comments 01/13/24 034 Medical Screening Begins RISA WOODWARD DO -- 01/13/24 034 First Provider Evaluation RISA WOODWARD DO -- ED COURSE Diagnosis/Impression as of 01/13/24 0656 Leg swelling Elevated troponin Hyponatremia Acute on chronic congestive heart failure, unspecified heart failure type Procedures: EKG-12 Lead ROUTINE ONCE Date/Time: 01/13/2024 4:47 AM Performed by: Risa Woodward DO Authorized by: Risa Woodward DO ECG interpreted by ED Physician in the absence of a agricultural services director: yes Interpretation: Interpretation: normal Rate: ECG rate: 69 ECG rate assessment: normal Rhythm: Rhythm: sinus rhythm Ectopy: Ectopy: none QRS: QRS axis: Left QRS intervals: Normal QRS conduction: normal ST segments: ST segments: Normal T waves: T waves: non-specific Q waves: Abnormal Q-waves: not present MDM: Medical Decision Making The patient presents from home with his for evaluation for worsening swelling with bilateral legs for the past several weeks. He reports the swelling is better in the morning when he awakens and is worse as the day goes on. He also complains of shortness of breath when he tries to sleep at night. He normally uses 2 pillows at night in the past several nights has not slept well due to his breathing. He does have a history of congestive heart failure and takes Aldactone as well as Lasix daily. He admits to pretty good compliance with his medication but does intermittently miss some doses. He is not compliant with a low-salt diet. No history of diabetes. The patient is hypertensive here in the ER upon arrival. His oxygen saturations are good on room air. He has rales at bilateral bases but no use of accessory muscles and he is able to speak in full and complete sentences without difficulty. He does have pitting edema to his bilateral lower legs. Differential diagnosis includes congestive heart failure saturation, pneumonia, bronchitis, peripheral edema. Will check laboratory studies including a BN P. Will obtain a chest x-ray and give the patient IV diuretics here in the ER. Final disposition pending. 0448 - the patient is doing well here in the EC. He has started to diurese here in the EC after administration of IV lasix. Labs show an elevated troponin of 0.038. He denies any chest pain or pressure and his EKG shows no STEMI. He was given ASA 324mg here in the EC. His BNP is also elevated at 5880, no priors for comparison. His BMP shows a low sodium of 117. Will repeat to verify. Pending CXR. Plan for admission for continued management. 0625 -the patient is doing well here in the ER. His chest x-ray shows some pulmonary congestion. He has continued to diurese here in the ER since receiving IV Lasix. The patient will need admission for continued management however there is currently no capacity here at [facility]. Spoke with Dr. Brooks with the medical ICU team in [place] and the patient was accepted for admission for continued management. He is pending transportation. Problems Addressed: Acute on chronic congestive heart failure, unspecified heart failure type: acute illness or injury Elevated troponin: acute illness or injury Hyponatremia: acute illness or injury Leg swelling: acute illness or injury Amount and/or Complexity of Data Reviewed Labs: ordered. Decision-making details documented in ED Course. Radiology: ordered and independent interpretation performed. Decision-making details documented in ED Course. ECG/medicine tests: ordered and independent interpretation performed. Decision-making details documented in ED Course. Risk OTC drugs. Prescription drug management. Decision regarding hospitalization. Flowsheet Documentation: Scoring Tools: No data recorded Disposition/Condition: ED Disposition [facility] Condition -- Comment -- Discharge Medications: Patient's Medications START taking these medications No medications on file CONTINUE taking these medications which have NOT CHANGED ALLOPURINOL 300 MG TABLET daily. CARVEDILOL 25 MG TABLET Take 1 tablet by mouth in the morning and 1 tablet in the evening. Take with meals. FUROSEMIDE 40 MG TABLET Take 1 tablet by mouth in the morning. HYDRALAZINE 50 MG TABLET 2 (two) times daily. SACUBITRIL-VALSARTAN 24-26 MG TABLET Take 1 tablet by mouth in the morning and 1 tablet in the evening. SPIRONOLACTONE 50 MG TABLET daily. START taking Modified Medications as Prescribed No medications on file STOP taking these medications No medications on file Follow-up: Electronically signed by: Risa Woodward DO 01/13/24 0656 [facility]2024-05-10 00:00:00 Chris SantillanAlix [facility]2023-11-07 13:30:00 Addended by: ANGY VILLAVICENCIO MD on: 02/06/2024 10:29 AM Modules accepted: Orders [facility]
[2025-06-12] MEDS ORDERED: ONDANSETRON 4 MG/2 ML VIAL ONE (18:52)
[2025-06-12] MEDS ORDERED: FAMOTIDINE 20 MG/2 ML VIAL IV ONE (18:53)
[2025-06-12] MEDS ORDERED: NA CHLORIDE 0.9% 500 ML ONE (18:53)
[2025-06-12] MEDS ORDERED: MORPHINE 4 MG/ML SYR ONE (18:53)
[2025-06-12 18:58] LABS: Absolute Lymphocytes (CBC) 0.9 K/uL (0.7-4.9); Hematocrit 38.9 % (39.6-49.0); Hemoglobin 13.9 g/dL (13.6-17.9); MCH 34.5 pg (27.0-35.0); MCHC 35.8 g/dL (32.0-36.0); MCV 96.3 fL (80-100); MPV 7.9 fL (7.6-11.3); Nucleated RBC Absolute Count 0.0 (0-0); Nucleated Red Blood Cells % 0.1 % (0-0); RBC Red Blood Cell Count 4.04 M/uL (4.33-5.43); White Blood Count 5.80 thou/uL (4.3-10.9)
--- NOTE | 2025-06-12 19:15 | RAD REPORT ---
EXAMINATION: ONE VIEW CHEST XR CLINICAL INDICATION: Male, 64 years old.,ABDOMINAL DISTENTION TECHNIQUE: Frontal chest projection is submitted. Examination is limited by patient positioning and t echnique. COMPARISON: 02/15/2016 FINDINGS: The lungs are well inflated and clear. No pneumothorax or sizable effusion. Moderate cardiomegaly Me diastinal contours are unremarkable. IMPRESSION: No acute intrathoracic abnormalities.
[2025-06-12 19:19] LABS: ALT/SGPT 37.0 U/L (16-61); AST/SGOT 30.0 U/L (15-37); Albumin 3.8 g/dL (3.4-5.0); Albumin/Globulin Ratio 0.8 (1.1-1.8); Alkaline Phosphatase 164.0 U/L (45-117); Anion Gap 10.5 mEq/L (5.0-15.0); BUN Blood Urea Nitrogen 13.0 mg/dL (7-18); Globulin 4.6 g/dL (2.3-3.5); Glucose Level 128.0 mg/dL (74-106); Lipase 430.0 U/L (13-75); Potassium 4.5 mEq/L (3.5-5.1)
[2025-06-12 21:30] LABS: Sqamous Epithelial <5 /HPF (None Seen); Urine Crystals Unidentified Few /HPF (None Seen); Urine Culture Reflex Order NOT NEEDED; Urine Microscopic Reflex YN ORDER UMIC
--- NOTE | 2025-06-12 21:58 | RAD REPORT ---
EXAMINATION: CT Abdomen Pelvis W Contrast CLINICAL INDICATION: Male, 64 years old. Abdominal distention;Constipation TECHNIQUE: CT abdomen and pelvis was performed, after the administration of IV contrast, as per [facility] protocol. Axial, sagittal and coronal reconstructions were obtained. One or more of the following dose reduction techniques were used: Automated exposure control, adjustment of the mA and k V according to patient size, and iterative reconstruction. Unless otherwise specified, incidental findings do not require dedicated imaging follow-up. COMPARISON: No prior exam. FINDINGS: LOWER CHEST: The visualized lung bases are clear. LIVER: Normal in size. Nodular contour suggesting cirrhosis. No focal lesion. BILIARY SYSTEM: No suspicious abnormalities. SPLEEN: Normal size. No focal lesion. PANCREAS: No mass, ductal dilation, or latasha-pancreatic fluid. ADRENALS: Normal; no mass. KIDNEYS: Normal size and contour. No hydronephrosis. URINARY BLADDER: Suboptimally distended limiting evaluation. GASTROINTESTINAL TRACT: No evidence of free air, significant intra-abdominal free fluid, bowel obstru ction or abscess. APPENDIX: Normal appendix. LYMPH NODES: No lymphadenopathy. MUSCULOSKELETAL: No acute or suspicious osseous abnormality. ADDITIONAL FINDINGS: Seminal vesicle calcifications. Small left inguinal hernia containing fat. Moder ate to advanced atherosclerotic calcifications. IMPRESSION: No acute abnormalities seen in the abdomen or pelvis. Nodular contour of the liver suggesting cirrhosis.
--- NOTE | 2025-06-12 23:01 | ER ---
Nurse's Notes [facility] Name: Nate Nobles Age: 64 yrs Sex: Male : 1960 Arrival Date: 06/12/2025 Time: 17:45 Bed 25 Private MD: Diagnosis: Other acute pancreatitis without necrosis or infection;Hypo-osmolality and hyponatremia;Constipation, unspecified;UTI/ Urinary tract infection, site not specified Presentation: 06/12 18:15 Chief complaint: Patient states: STOMACH PAIN X 3 DAYS AND CONSTIPATION X 6 DAYS. PT dd2 REPORTS USING A SUPPOSITORY WITH NO RELIEF. Coronavirus screen: At this time, the client does not indicate any symptoms associated with coronavirus-19. Ebola Screen: No symptoms or risks identified at this time. Initial Sepsis Screen: Does the patient meet any 2 criteria? No. Patient's initial sepsis screen is negative. Does the patient have a suspected source of infection? No. Patient's initial sepsis screen is negative. Risk Assessment: Do you want to hurt yourself or someone else? Patient reports no desire to harm self or others. Onset of symptoms was June 06, 2025. 18:15 Method Of Arrival: Ambulatory dd2 18:15 Acuity: CLARENCE 3 dd2 Triage Assessment: 18:17 General: Appears in no apparent distress. uncomfortable, Behavior is calm, cooperative, dd2 appropriate for age. Pain: Complains of pain in abdomen Pain currently is 8 out of 10 on a pain scale. GI: Abdomen is round distended, Abdomen is tender to palpation X 4 quads. Reports constipation, cramping. Historical: - Allergies: 18:17 No Known Allergies; dd2 - PMHx: 18:17 Hypertensive disorder; dd2 - PSHx: 18:17 None; dd2 - Immunization history:: Adult Immunizations unknown. - Infectious Disease History:: Denies. - Social history:: Smoking status: Patient reports the use of cigarette tobacco products, smokes one-half pack cigarettes per day. Screenin:30 [facility] ED Fall Risk Assessment (Adult) History of falling in the last 3 months, rg5 including since admission No falls in past 3 months (0 pts) Confusion or Disorientation No (0 pts) Intoxicated or Sedated No (0 pts) Impaired Gait Yes (1 pt) Mobility Assist Device Used No (0 pt) Altered Elimination No (0 pt) Score/Fall Risk Level 0 - 2 = Low Risk Oriented to surroundings, Maintained a safe environment. Abuse screen: Denies threats or abuse. Nutritional screening: No deficits noted. Tuberculosis screening: No symptoms or risk factors identified. Assessment: 18:30 General: Appears in no apparent distress. uncomfortable, Behavior is calm, cooperative, rg5 appropriate for age. 18:30 Pain: Complains of pain in abdomen. Neuro: Level of Consciousness is awake, alert, rg5 obeys commands. Cardiovascular: Denies chest pain, Patient's skin is warm and dry. Respiratory: Airway is patent Respiratory effort is even, unlabored. GI: Abdomen is round Bowel sounds present in left lower quadrant Reports constipation, nausea. : No signs and/or symptoms were reported regarding the genitourinary system. EENT: No signs and/or symptoms were reported regarding the EENT system. Derm: Skin is intact, Skin temperature is warm. Musculoskeletal: Circulation, motion, and sensation intact. Range of motion: intact in all extremities. 19:28 Reassessment: No changes from previously documented assessment. Patient and/or family rg5 updated on plan of care and expected duration. Pain level reassessed. Patient is alert, oriented x 3, equal unlabored respirations, skin warm/dry/pink. 20:36 Reassessment: No changes from previously documented assessment. Patient and/or family rg5 updated on plan of care and expected duration. Pain level reassessed. Patient is alert, oriented x 3, equal unlabored respirations, skin warm/dry/pink. 21:45 Reassessment: Patient and/or family updated on plan of care and expected duration. Pain rg5 level reassessed. Patient is alert, oriented x 3, equal unlabored respirations, skin warm/dry/pink. 22:50 Reassessment: Patient and/or family updated on plan of care and expected duration. Pain rg5 level reassessed. Patient is alert, oriented x 3, equal unlabored respirations, skin warm/dry/pink. Patient states symptoms have improved. Vital Signs: 18:15 BP 180 / 78; Pulse 62; Resp 16; Temp 98.7; Pulse Ox 100% on R/A; Pain 8/10; dd2 19:30 BP 158 / 75; Pulse 55; Resp 18; Pulse Ox 97% ; rg5 20:34 BP 154 / 77; Pulse 54; Resp 18; Pulse Ox 97% ; rg5 21:52 BP 158 / 71; Pulse 55; Resp 18; Pulse Ox 97% ; rg5 22:50 BP 155 / 77; Pulse 60; Resp 18; Pulse Ox 97% ; rg5 18:15 Pain Scale: Adult dd2 ED Course: 17:50 Patient arrived in ED. al6 18:14 Nguyễn Mariscal PA-C is PHCP. cp 18:14 Lalit Vernon DO is Attending Physician. cp 18:17 Triage completed. dd2 18:17 Arm band placed on right wrist. dd2 18:23 Berny Anna, GINA is Primary Nurse. rg5 18:30 Patient has correct armband on for positive identification. Placed in gown. Bed in low rg5 position. Door closed. Noise minimized. Warm blanket given. 18:30 No provider procedures requiring assistance completed. Inserted saline lock: 20 gauge rg5 in left Blood collected. Flushed with 10 mL NS. Patient maintains SpO2 saturation greater than 95% on room air. 19:04 XRAY Chest (1 view) In Process Unspecified. EDMS 20:46 CT Abd/Pelvis - PO and IV Contrast In Process Unspecified. EDMS 22:59 Dashawn España MD is Referral Physician. cp 23:28 IV discontinued, bleeding controlled, No redness/swelling at site. Pressure dressing rg5 applied. Administered Medications: 19:00 Drug: Famotidine IVP 20 mg IVP once; dilute with 10 mL 0.9% NaCl; give over 2 minutes rg5 Route: IVP; Site: left antecubital; 20:51 Follow up: Response: No adverse reaction rg5 19:01 Drug: Ondansetron IVP 4 mg IVP once; over 2 minutes Route: IVP; Site: left antecubital; rg5 20:51 Follow up: Response: No adverse reaction rg5 19:01 Drug: morphine IVP or IV 4 mg IVP once over 4 mins Route: IVP; Infused Over: 4 mins; rg5 Site: left antecubital; 20:51 Follow up: Response: No adverse reaction; Pain is decreased rg5 19:01 Drug: NS 0.9% IV 500 ml 500 ml IV at 1 bolus once; to be given as a bolus over 60 rg5 minutes Volume: 500 ml; Route: IV; Rate: 1 bolus; Site: left antecubital; 20:52 Follow up: IV Status: Completed infusion; IV Intake: 500ml rg5 23:10 Drug: Ciprofloxacin PO 500 mg PO once Route: PO; rg5 23:27 Follow up: Response: No adverse reaction rg5 23:10 Drug: Rocephin IV 1 grams IV at calculated rate once; Given slow IV push per pharmacy rg5 instructions Route: IV; Rate: calculated rate; Site: left antecubital; 23:27 Follow up: IV Status: Completed infusion; IV Intake: 50ml rg5 Medication: 18:30 VIS not applicable for this client. rg5 Intake: 20:52 IV: 500ml; Total: 500ml. rg5 23:27 IV: 50ml; Total: 550ml. rg5 Outcome: 23:00 Discharge ordered by MD. bairon 23:28 Discharged to home ambulatory, rg5 23:28 Condition: stable 23:28 Discharge instructions given to patient, Instructed on discharge instructions, follow up and referral plans. Demonstrated understanding of instructions, follow-up care, Prescriptions given X 2, 23:29 Patient left the ED. rg5 Signatures: Dispatcher [employer] EDMS Nguyễn Mariscal PA-C PAMicaelaC Berny Addison RN RN rg5 LAINE BOYD RN RN dd2 Qian Rosario al6
--- NOTE | 2025-06-12 23:01 | EDPHYS ---
Physician Documentation [facility] Name: Nate Nobles Age: 64 yrs Sex: Male : 1960 Arrival Date: 06/12/2025 Time: 17:45 Bed 25 Private MD: ED Physician Lalit Vernon HPI: 06/12 18:30 This 64 yrs old Black Male presents to ER via Ambulatory with complaints of Abdominal cp Pain, Constipation. 18:30 The patient presents with abdominal pain in the left upper quadrant, abdominal cp distention that is diffuse. Onset: The symptoms/episode began/occurred 3 day(s) ago. 18:30 Associated signs and symptoms: Pertinent positives: constipation, nausea, vomiting, cp Pertinent negatives: chest pain, diarrhea, fever, testicular pain, active vomiting. The symptoms are described as waxing/waning. Severity of pain: in the emergency department the pain is unchanged despite home interventions. Historical: - Allergies: 18:17 No Known Allergies; dd2 - PMHx: 18:17 Hypertensive disorder; dd2 - PSHx: 18:17 None; dd2 - Immunization history:: Adult Immunizations unknown. - Infectious Disease History:: Denies. - Social history:: Smoking status: Patient reports the use of cigarette tobacco products, smokes one-half pack cigarettes per day. ROS: 18:35 Constitutional: Negative for body aches, chills, fever, poor PO intake, cp 18:35 Abdomen/GI: Positive for abdominal pain, nausea, constipation, abdominal distension, cp Exam: 18:45 Constitutional: The patient appears in no acute distress, alert, awake, cp non-diaphoretic, non-toxic, well developed, well nourished, uncomfortable, 18:45 Head/Face: Normocephalic, atraumatic. cp 18:45 Eyes: Periorbital structures: appear normal, Conjunctiva: normal, no exudate, no injection, Sclera: no appreciated abnormality, Lids and lashes: appear normal, bilaterally, 18:45 ENT: External ear(s): are unremarkable, Nose: is normal, Mouth: Lips: moist, Oral mucosa: moist, Posterior pharynx: Airway: no evidence of obstruction, patent, 18:45 Neck: ROM/movement: is normal, is supple, without pain, no range of motions limitations, 18:45 Chest/axilla: Inspection: normal, 18:45 Cardiovascular: Rate: normal, Rhythm: regular, Edema: is not appreciated, JVD: is not appreciated, 18:45 Respiratory: the patient does not display signs of respiratory distress, Respirations: normal, no use of accessory muscles, no retractions, labored breathing, is not present, Breath sounds: are clear throughout, no decreased breath sounds, no stridor, no wheezing, 18:45 Abdomen/GI: Inspection: distension, that is mild, Bowel sounds: active, all quadrants, Palpation: soft, in all quadrants, mild abdominal tenderness, in all quadrants, rebound tenderness, is not appreciated, involuntary guarding, is not appreciated, 18:45 Back: CVA tenderness, is absent, 18:45 Skin: cellulitis, is not appreciated, no rash present. 18:45 Neuro: Orientation: to person, place \T\ time. Mentation: is normal, Cerebellar function: cp is grossly normal, Motor: moves all fours, strength is normal, Sensation: is normal, Gait: is steady, at a normal pace, without difficulty, Vital Signs: 18:15 BP 180 / 78; Pulse 62; Resp 16; Temp 98.7; Pulse Ox 100% on R/A; Pain 8/10; dd2 19:30 BP 158 / 75; Pulse 55; Resp 18; Pulse Ox 97% ; rg5 20:34 BP 154 / 77; Pulse 54; Resp 18; Pulse Ox 97% ; rg5 21:52 BP 158 / 71; Pulse 55; Resp 18; Pulse Ox 97% ; rg5 22:50 BP 155 / 77; Pulse 60; Resp 18; Pulse Ox 97% ; rg5 18:15 Pain Scale: Adult dd2 MDM: 18:14 Medical Screening Exam initiated cp 23:00 Data reviewed: vital signs, nurses notes, lab test result(s), radiologic studies, CT cp scan, plain films. 23:00 I considered the following discharge prescriptions or medication management in the emergency department Medications were administered in the Emergency Department. See MAR. Care significantly affected by the following chronic conditions: Hypertension. Counseling: I had a detailed discussion with the patient and/or guardian regarding the historical points, exam findings, and any diagnostic results supporting the discharge/admit diagnosis, lab results, radiology results. ED course: Discussed results of today's labs showing hyponatremia and elevated lipase. Admission offered but declined at this time by patient. Will discharge to home for continued monitoring with understanding that patient can return at ant time for reevaluation. 06/12 18:35 Order name: CBC with Diff; Complete Time: 20:14 cp 06/12 22:09 Interpretation: Normal except: RBC 4.04; HCT 38.9; MN% 14.0. cp 06/12 18:35 Order name: CMP; Complete Time: 20:14 cp 06/12 20:14 Interpretation: Normal except: NA 126; CL 96; GLUC 128; ALK 164; BILIT 1.3; TP 8.4; cp GLOB 4.6; A/G 0.8. 06/12 18:35 Order name: Lipase; Complete Time: 20:14 cp 06/12 18:35 Order name: UA Rfx John Cult if indicated; Complete Time: 22:08 cp 06/12 22:08 Interpretation: Normal except: UCLA Turbid; UBLD 1+; UPROT TRACE; UNIT 2+; UESTR 75. cp 06/12 18:35 Order name: XRAY Chest (1 view); Complete Time: 20:14 cp 06/12 18:35 Order name: CT Abd/Pelvis - PO and IV Contrast; Complete Time: 22:08 cp 06/12 18:35 Order name: IV Saline Lock; Complete Time: 18:50 cp 06/12 18:35 Order name: Labs collected and sent; Complete Time: 18:50 cp Administered Medications: 19:00 Drug: Famotidine IVP 20 mg IVP once; dilute with 10 mL 0.9% NaCl; give over 2 minutes rg5 Route: IVP; Site: left antecubital; 20:51 Follow up: Response: No adverse reaction rg5 19:01 Drug: Ondansetron IVP 4 mg IVP once; over 2 minutes Route: IVP; Site: left antecubital; rg5 20:51 Follow up: Response: No adverse reaction rg5 19:01 Drug: morphine IVP or IV 4 mg IVP once over 4 mins Route: IVP; Infused Over: 4 mins; rg5 Site: left antecubital; 20:51 Follow up: Response: No adverse reaction; Pain is decreased rg5 19:01 Drug: NS 0.9% IV 500 ml 500 ml IV at 1 bolus once; to be given as a bolus over 60 rg5 minutes Volume: 500 ml; Route: IV; Rate: 1 bolus; Site: left antecubital; 20:52 Follow up: IV Status: Completed infusion; IV Intake: 500ml rg5 23:10 Drug: Ciprofloxacin PO 500 mg PO once Route: PO; rg5 23:27 Follow up: Response: No adverse reaction rg5 23:10 Drug: Rocephin IV 1 grams IV at calculated rate once; Given slow IV push per pharmacy rg5 instructions Route: IV; Rate: calculated rate; Site: left antecubital; 23:27 Follow up: IV Status: Completed infusion; IV Intake: 50ml rg5 Disposition: 18:35 I was immediately available on-site in the Emergency Department for consultation in the ms3 care of the patient. 06/13 21:42 Chart complete. cp Disposition Summary: 06/12/25 23:00 Discharge Ordered Notes: Location: Home cp Problem: new cp Symptoms: have improved cp Condition: Stable cp Diagnosis - Other acute pancreatitis without necrosis or infection cp - Hypo-osmolality and hyponatremia cp - Constipation, unspecified cp - UTI/ Urinary tract infection, site not specified cp Followup: cp - With: Dashawn España MD - When: 2 - 3 days - Reason: Recheck today's complaints Discharge Instructions: - Discharge Summary Sheet cp - Constipation, Adult cp - Hyponatremia cp - Acute Pancreatitis cp - Urinary Tract Infection, Adult cp Forms: - Medication Reconciliation Form cp - Antibiotic Education cp - Prescription Opioid Use cp - Patient Portal Instructions cp - Leadership Thank You Letter cp Prescriptions: - Cipro 500 mg Oral tablet - take 1 tablet ORAL route every 12 hours for 7 days; 14 tablet; Refills: 0, cp Product Selection Permitted - ondansetron 8 mg Oral Tablet,disintegrating - take 1 tablet ORAL route every 12 hours; 15 tablet; Refills: 0, Product cp Selection Permitted Signatures: Dispatcher [employer] EDMS Nguyễn Mariscal PA-C PA-C cp Sims, Marcus, DO DO ms3 Berny Anna RN RN rg5 LAINE BOYD RN RN dd2 Corrections: (The following items were deleted from the chart) 06/12 18:36 18:36 CBC+H.LAB.BRZ ordered. EDMS EDMS 18:36 18:36 COMPREHENSIVE METABOLIC PANEL+C.LAB.BRZ ordered. EDMS EDMS 18:36 18:36 LIPASE+C.LAB.BRZ ordered. EDMS EDMS 18:36 18:36 UA Rfx John Cult if indicated+U.LAB.BRZ ordered. EDMS EDMS 18:36 18:36 Abdomen Pelvis W Con+CT.RAD.BRZ ordered. EDMS EDMS
[2025-06-12] MEDS ORDERED: CEFTRIAXONE 1000 MG/VIAL ONE (23:09)
[2025-06-12] MEDS ORDERED: NA CHLORIDE 0.9% 50 ML ONE (23:10)
[2025-06-12] MEDS ORDERED: CIPROFLOXACIN HCL 500 MG TAB ONE (23:10)
[2025-06-12 23:33] VITALS: TEMP 98.7
[2025-06-12 23:34] VITALS: O2SAT 97
[2025-06-12 23:39] VITALS: BP 155/77
== END 2025-06-12 23:29 | disposition home or self-care (01) ==
LOC: ER 17:45
DX: K85.80 Other acute pancreatitis without necrosis or infection (principal); N39.0 Urinary tract infection, site not specified; E87.1 Hypo-osmolality and hyponatremia; K59.00 Constipation, unspecified; F17.210 Nicotine dependence, cigarettes, uncomplicated
CPT/HCPCS: 96365; 96361; 85025; 81001; 36415; 83690; 80053; 74177; 71045; 96375; 99284; Q9967; J2405; J7040; J0696